=== PATIENT | female | born 1970 | race Caucasian/White ===

== ENCOUNTER → 2017-06-28 22:21 | Outpatient (CLI) | payer OTHER, SELFPAY ==
[2017-07-02 06:42] LABS: HPV Reflexed? NOT INDICATED
== END ==
PROVIDERS: Family Provider Family Medicine; PCP Family Medicine; Visit Provider Obstetrics & Gynecology
DX: Z12.4 Encounter for screening for malignant neoplasm of cervix (principal)
CPT/HCPCS: 88175; G0145

== ENCOUNTER → 2017-06-29 07:32 | Outpatient (CLI) | payer OTHER, SELFPAY ==
[2017-06-29 10:37] LABS: Estradiol 61.7 pg/mL; Free T3 2.7 pg/mL (2.18-3.98); Thyroid Stim Hormone (TSH) 1.12 uIU/mL (0.358-3.74)
--- NOTE | 2017-06-29 13:28 | HPBI_ITS ---
MAMMOGRAPHY - BILATERAL SCREENING REASON FOR EXAM: Female, 46 years old. Routine annual screening examination. PERTINENT HISTORY: Non-contributory. TECHNIQUE: Digital bilateral breast tanna (3D mammographic acquisition) in the CC and MLO projections. 2-D mediolateral oblique (MLO) and craniocaudad (CC) views of both breasts were obtained. CAD: Full Field Digital Mammography with Computer Added Detection was performed. COMPARISON: Comparison is made with prior study dated January 26, 2016 and January 20, 2015. FINDINGS: Breast Composition: The breasts are heterogeneously dense, which may obscure small masses. There are no dominant masses or suspicious calcifications. No other significant abnormalities are identified. There has been no significant change since the prior study. HPBI/SCREENING MAMM (CAD), BILAT IMPRESSION: Stable bilateral screening mammogram. Yearly follow-up mammogram recommended. (A) ASSESSMENT CATEGORY: BIRADS Category 1: Negative. A letter regarding these results will be sent to the patient by the facility within 30 days. Approximately 10% of breast cancers are not detected by mammography. A normal mammogram should not delay biopsy of a clinically suspicious abnormality. [id number] Electronically Signed: Adam Vasques MD at 15:56 EDT Tel [phone], Service support ,
[2017-06-30 09:47] LABS: Progesterone Level 1.97 ng/mL (See Comment)
== END ==
PROVIDERS: Family Provider Family Medicine; PCP Family Medicine; Visit Provider Obstetrics & Gynecology
DX: R53.83 Other fatigue (principal); Z12.31 Encounter for screening mammogram for malignant neoplasm of breast
CPT/HCPCS: 36415; 77063; 77067; 82533; 82627; 82670; 83036; 84144; 84403; 84439; 84443; 84481; 82626

== ENCOUNTER → 2017-10-31 08:51 | Outpatient (CLI) | payer OTHER, SELFPAY ==
[2017-10-31 12:03] LABS: Estradiol 102.8 pg/mL
[2017-11-01 09:08] LABS: Progesterone Level 48.46 ng/mL (See Comment)
== END ==
PROVIDERS: Visit Provider Obstetrics & Gynecology
DX: N92.6 Irregular menstruation, unspecified (principal); N94.3 Premenstrual tension syndrome; N92.0 Excessive and frequent menstruation with regular cycle
CPT/HCPCS: 36415; 82670; 84144

== ENCOUNTER 2018-04-13 12:15 | Outpatient (RCR) | payer OTHER, SELFPAY ==
--- NOTE | 2017-07-19 19:43 | MASS.EVAL ---
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 She was referred for massage therapy with a diagnosis of neck and thoracic sprain. She presents today with neck pain that she describes as an ache or tightness. She states that at times the pain radiates into her left arm. She also states that at times it is sharp and stabbing. Bernarda does not list an medications. She states that her health is very good with no limits in daily activities. She denies any disc bulge or fusion. Her goal of treatment is stress relief. OBJECTIVE: Upon examination and palpation I found this patient to have considerable muscle tension throughout her head, neck and shoulders. Her suboccipitals were tight with knots. Her scalenes were tight and ropey left side more than right side. Her levators and pectorals were very tight as well as the thoracic and lumbar paraspinals Her first treatment consisted of a one hour massage to her upper body only. MFR and muscle stripping were incorporated into the massage as well as PNMT to her cervical muscles and a heat pack to loosen muscles. ASSESMENT: Using various techniques I was able to achieve good releases overall. The patient tolerated deep tissue well and relaxed easily. She stated that she felt much better after her first treatment. PLAN: I plan to see this patient on an as-needed basis for a total of 10 visits in the year 2018. I will focus on the head, neck, shoulders and back to alleviate pain, decrease muscle tension and promote relaxation. Darcy Askew LMT
--- NOTE | 2017-07-19 19:53 | MASS.EVAL_ITS ---
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 She was referred for massage therapy with a diagnosis of neck and thoracic sprain. She presents today with neck pain that she describes as an ache or tightness. She states that at times the pain radiates into her left arm. She also states that at times it is sharp and stabbing. Bernarda does not list an medications. She states that her health is very good with no limits in daily activities. She denies any disc bulge or fusion. Her goal of treatment is stress relief. OBJECTIVE: Upon examination and palpation I found this patient to have considerable muscle tension throughout her head, neck and shoulders. Her suboccipitals were tight with knots. Her scalenes were tight and ropey left side more than right side. Her levators and pectorals were very tight as well as the thoracic and lumbar paraspinals Her first treatment consisted of a one hour massage to her upper body only. MFR and muscle stripping were incorporated into the massage as well as PNMT to her cervical muscles and a heat pack to loosen muscles. ASSESMENT: Using various techniques I was able to achieve good releases overall. The patient tolerated deep tissue well and relaxed easily. She stated that she felt much better after her first treatment. PLAN: I plan to see this patient on an as-needed basis for a total of 10 visits in the year 2018. I will focus on the head, neck, shoulders and back to alleviate pain, decrease muscle tension and promote relaxation. Darcy Askew LMT
--- NOTE | 2018-04-13 14:50 | DS.PCM_ITS ---
Massage Therapy Discharge Summary: Discharge Date: 04/13/2018 Bernarda was seen for a massotherapy evaluation on 07/12/2017 with the diagnosis of neck sprain and thoracic strain. She was treated with five sessions of massage therapy consisting of deep pressure soft tissue techniques, myofascial release and trigger point compression to her cervical, thoracic, and lumbar spine. Bernarda responded well to the therapy by reporting decreased tension and pain throughout her neck and back. Her goals for therapy were met throughout the treatment sessions. At this time this patient is being discharged from our care at [facility] facility. Darcy Askew LMT
== END 2018-04-13 19:00 | disposition home or self-care (01) ==
LOC: MASS 12:15
PROVIDERS: Family Provider Family Medicine; PCP Family Medicine; Visit Provider Family Medicine
DX: S13.9XXD Sprain of joints and ligaments of unspecified parts of neck, subsequent encounter (principal); S23.9XXD Sprain of unspecified parts of thorax, subsequent encounter
CPT/HCPCS: 97124

== ENCOUNTER 2018-07-25 15:59 | Outpatient (RCR) | payer OTHER, SELFPAY ==
[2018-07-10 13:30] VITALS: BMI 22.4
--- NOTE | 2018-07-25 17:40 | MASS.EVAL_ITS ---
Massage Therapy Evaluation: DATE OF INITIAL EVALUATION: 07-25-2018 Referring Physician: Dr. 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 She was seen for a massotherapy evaluation with a diagnosis of neck sprain. She presents today with neck pain. It commenced several days ago while lifting weights. On a pain scale of 1-10 she states her pain in a 4 today. She explains that her neck and shoulders hurt. She further explains that it feels tight and achy. She does not list any medications. She states that her health is very good with no limits in daily activities. Her goals of treatment are to relax and have tension relief. OBJECTIVE: Upon examination and palpation I found she had point tenderness throughout her suboccipitals. The muscles in her head, neck, and shoulders were very tight. Her scalp was rigid. Her levators bilaterally were very ropey. Her right UT had a know. Bilateral rhomboids were tight left greater than right. Her scalenes were tight and ropey left greater than right. Her cervical, thoracic and lumbar paraspinals were all tight. Her right supraspinatus has a knot laterally. Bernarda's first treatment consisted of MFR, muscle stripping, PNMT to her cervicals as well as a heat pack to loosen muscles. ASSESSMENT: Using various techniques I was able to achieve good releases overall. The patient tolerated deep pressure well and relaxed easily PLAN: I plan to see this patient on an as-needed basis for a total of 10 visits in the year 2018. Darcy Askew LMT
--- NOTE | 2019-03-27 11:16 | DS.PCM_ITS ---
Massage Therapy Discharge Summary: Initial Evaluation Date: 07/25/2018 Diagnosis: Neck Pain No. of Visits: Date of last visit: 07/25/2018 Goals: Insufficient visits to meet goals This patient is being discharged from our care at the [facility]. Thank you, Donya Churchill LMT
== END 2018-07-25 19:00 | disposition home or self-care (01) ==
LOC: MASS 15:59
PROVIDERS: Family Provider Family Medicine; PCP Family Medicine; Referring Provider Family Medicine; Visit Provider Family Medicine
DX: S13.9XXD Sprain of joints and ligaments of unspecified parts of neck, subsequent encounter (principal)
CPT/HCPCS: 97124

== ENCOUNTER → 2018-08-17 | Outpatient (CLI) | payer OTHER, SELFPAY ==
[2018-07-29 10:09] VITALS: BMI 22.4
[2018-08-22 12:25] LABS: HPV Reflexed? NOT INDICATED
== END | disposition home or self-care (01) ==
LOC: LABSPEC 16:03
PROVIDERS: Family Provider Family Medicine; PCP Family Medicine; Referring Provider Obstetrics & Gynecology; Visit Provider Obstetrics & Gynecology
DX: Z12.4 Encounter for screening for malignant neoplasm of cervix (principal)
CPT/HCPCS: 88175; G0145

== ENCOUNTER → 2018-08-20 | Outpatient (CLI) | payer OTHER, SELFPAY ==
[2018-07-29 10:09] VITALS: BMI 22.4
--- NOTE | 2018-08-20 13:23 | CT_ITS ---
STUDY: CT ABDOMEN AND PELVIS WITH CONTRAST REASON FOR EXAM: Female, 47 years old. Lower abdominal pain RADIATION DOSAGE (If Supplied By Facility): CTDIvol = ( 7.97 ) mGy, DLP = ( 279.86 ) mGycm TECHNIQUE: Transaxial images were obtained from the dome of the diaphragm to the symphysis pubis without oral contrast. 100 IV/Oral Isovue 300 was administered. Sagittal and coronal images were reconstructed. Individualized dose optimization techniques were used for this CT. COMPARISON: None. FINDINGS: The visualized lung bases are unremarkable. The visualized portions of the heart are within normal limits. Normal liver. Normal gallbladder and extrahepatic biliary system. Normal spleen. Normal pancreas. Normal bilateral adrenal glands. Normal right kidney. Normal left kidney. Normal visualized stomach. Normal small intestine. There are sigmoid diverticula. There is mild stranding in the fat around the sigmoid colon. The appendix is visualized and appears normal. Normal abdominal aorta. Normal inferior vena cava. Normal retroperitoneum. There is mild distention of the bladder. Normal abdominal wall. Normal osseous structures. There is a 1.8 x 1.3 cm left adnexa likely ovarian cyst. The uterus is anteverted. There are several hypodensities within the uterus. CT/Abdomen/Pelvis WITH Contrast IMPRESSION: Sigmoid diverticula, stranding around the sigmoid colon likely acute sigmoid colon diverticulitis 1.8 x 1.3 cm left adnexa likely ovarian cyst Mild distended bladder Likely uterine leiomyomas N.B. : The above information has been verbally conveyed by Christopher Lambert to Ashlyn Steele OT, on 08/20/2018 17:53:51 (ET). Electronically Signed: Christopher Lambert, at 17:57 EDT Tel , Service support ,
[2018-08-20 13:41] LABS: Absolute Lymphocyte Count 1.54 X10^3/ul (0.83-4.51); Absolute Neutrophil Count 8.2 X10^3/uL (2.0-7.7); Basophil# 0.02 X10^3/uL; Basophil% 0.2 % (0-1); Eosinophil# 0.06 X10^3/uL; Eosinophils% 0.6 % (0-5); Hematocrit 44.1 % (37-47); Lymphocyte # 1.54 X10^3/ul (4.0); Lymphocyte % 14.5 % (19-41); Mean Corpuscular Hgb 30.4 pg (27.0-32.0); Mean Corpuscular Volume 89.5 fL (81-99); Mean Platelet Vol. 9.6 fl (6.2-12.0); Monocyte# 0.81 X10^3/uL; Monocyte% 7.6 % (0-10); Neutrophil # 8.18 X10^3/uL (2.7-7.7); POSITIVE COUNT NO; POSITIVE DIFFERENTIAL NO; POSITIVE MORPHOLOGY NO; Platelet Count 249 K/mm3 (150-450); RBC Distribution Width CV 12.7 % (11.6-14.6); Red Blood Count 4.93 M/mm3 (4.2-5.4); White Blood Count 10.6 K/mm3 (4.4-11.0)
== END | disposition home or self-care (01) ==
PROVIDERS: Family Provider Family Medicine; PCP Family Medicine; Referring Provider Family Medicine; Visit Provider Family Medicine
DX: R10.30 Lower abdominal pain, unspecified (principal)
CPT/HCPCS: 36415; 74177; 85025; Q9967

== ENCOUNTER 2018-08-25 11:02 | Emergency (ER) | payer OTHER, SELFPAY ==
[2018-07-29 10:09] VITALS: BMI 22.4
[2018-08-25 11:03] VITALS: BP 122/89; PULSE 84; RESP 18; TEMP 36.4; O2SAT 99; BMI 21.5
--- NOTE | 2018-08-25 11:18 | ED.DCSUM_ITS ---
History of Present Illness Chief Complaint: Nausea/Vomiting/Diarrhea Detail of Chief Complaint: Nausea, vomiting and diarrhea Informant: Patient Onset: Days Context: Sudden Onset Timing: Intermittent Quality: Nausea without vomiting and diarrhea Current Severity: Mild Maximum Severity: Moderate Worsened by: Attempt to eat or drink anything Relieved by: Nothing Associated Symptoms: Predominantly nausea with some vomiting Narrative: Patient is a 47-year-old woman with no sniffing a past medical history who was diagnosed with acute diverticulitis on August 20. She was prescribed ciprofloxacin and metronidazole since she reports allergy to penicillin and sulfa. She states the pain has resolved. She no longer has discomfort with walking. Her main symptom presently is nausea. She has had some vomiting. She has not vomited today. She was able to take her medication. She reports thirst, dry mouth and feeling weak. - Past Medical History (1) Acute diverticulitis of intestine Status: Acute Past Medical History - Allergies and Home Meds Allergies/Adverse Reactions: Allergies Penicillins Allergy (Mild, Verified 08/25/18 11:06) rash Sulfa (Sulfonamide Antibiotics) Allergy (Mild, Verified 08/25/18 11:06) rash Primary Care Physician: Dave Cortez MD [Primary Care Provider] - Prior records reviewed: Yes Surgical History: no surgical history Lives: Spouse/ Significant Other, With Family Smoking Status: Never smoker Drugs: None Review of Systems General: Reports: Malaise, Weight loss - Since onset of illness. Denies: Chills, Fever, Sweats Eyes: Denies: Visual changes - bilaterally, Blurred Vision - bilaterally, Diplopia ENT: Denies: Bilateral ear pain, Rhinorrhea, Sore throat Cardiovascular: Denies: Chest pain, Palpitations Respiratory: Denies: Dyspnea, Cough, Dyspnea on exertion Gastrointestinal: Reports: Nausea, Vomiting - No hematemesis or coffee grounds noted in emesis, Diarrhea - Diarrhea earlier in the week.. Denies: Melena, Hematochezia Genitourinary: Denies: Dysuria, Hematuria, Frequency Musculoskeletal: Denies: Myalgias, Arthralgias, Back pain, Extremity Pain Skin: Denies: Rash, Wounds Neurological: Reports: Weakness Hematologic: Denies: Easy bruising, Easy bleeding Physical Exam Vital Signs/Narrative: Vital Signs Temp Pulse Resp BP Pulse Ox 08/25/18 11:03 97.6 F L 84 18 122/89 H 99 Inital Vital Signs reviewed: Yes General: Well nourished, Well developed, No Acute Distress Head: Normocephalic, Atraumatic Eyes: Perrl, EOMI ENT: Moist mucous membranes, No rhinorrhea Neck: Supple, Nontender Cardiovascular: Regular rate, Regular rhythm, No murmurs Respiratory: No distress, CTA bilaterally, Chest nontender Abdomen: Soft, Nontender, Nondistended, No masses, Hypoactive bowel sounds - There is tympanitic to percussion.. Negative for: Normal bowel sounds Rectal: Deferred Back: Nontender, Normal Inspection Extremities: Nontender, No edema Skin: Normal color, No rash. Negative for: Cyanosis, Jaundice Neurological: Alert, Oriented x3, Cranial nerves II-XII grossly intact, Normal Strength, Normal Sensation, Normal Gait Psychological: Tearful Diagnostic/Tx/Re-eval - Medical Decision Making With no sniffing a past medical history and not on any antihypertensive or diuretic blood work was not obtained based on studies in the literature. She did receive a liter of normal saline and IV Zofran. Clinically she is dehydra keiry. 30 to 60 minutes after receiving Zofran will order a p.o. challenge. If patient able to tolerate and feels improved will discharge to home with prescription for Zofran. Abdominal exam is negative with no tenderness, guarding or peritoneal findings. Therefore, CBC was not obtained. Patient was reassessed at sitting up. She is now smiling. She reports feeling better. She has no urge to urinate. Second liter of normal saline was ordered and p.o. challenge. Patient has passed p.o. challenge. Patient has urinated. Patient reports marked improvement. ED Disposition - Plan for ED Patient: Disposition: Home or Assisted Living Diagnosis: Nausea and vomiting, Moderate dehydration Instructions: ED Nausea Vomiting Prescriptions: Ondansetron [Zofran Odt] 4 mg PO Q8H PRN PRN #10 tablet PRN Reason: Nausea Referrals: Dave Cortez MD [Primary Care Provider] - 1-2 Days if not improving Additional Instructions: Your prescription was electronically transmitted to pharmacy of choice.
[2018-08-25] MEDS: Ondansetron 4 MG/2 ML Vial IV (11:25)
[2018-08-25] MEDS: 0.9% Normal Saline 1,000 ML 1000 ML IV ×2 (11:25→12:15)
[2018-08-25 13:48] VITALS: BP 105/60; PULSE 64; RESP 17
== END 2018-08-25 13:53 | disposition home or self-care (01) ==
PROVIDERS: Emergency Provider Emergency Medicine; Family Provider Family Medicine; PCP Family Medicine
DX: R11.2 Nausea with vomiting, unspecified (principal); E86.0 Dehydration; Z87.19 Personal history of other diseases of the digestive system
CPT/HCPCS: 96361; 96374; 99283; J7030; A4216; J2405

== ENCOUNTER → 2018-08-27 | Outpatient (CLI) | payer OTHER, SELFPAY ==
[2018-08-25 11:03] VITALS: BMI 21.5
[2018-08-27 08:00] LABS: Hemoglobin 15.4 g/dl (12.0-15.0); Mean Corpuscular Volume 85.8 fL (81-99); Mean Platelet Vol. 9.1 fl (6.2-12.0); Platelet Count 316 K/mm3 (150-450); RBC Distribution Width CV 12.4 % (11.6-14.6); RBC Distribution Width SD 38.4 fl (35.1-43.9); Red Blood Count 5.13 M/mm3 (4.2-5.4); Scan Indicated on CBC? Y/N NO; White Blood Count 4.4 K/mm3 (4.4-11.0)
[2018-08-27 08:34] LABS: Estradiol 105.8 pg/mL
[2018-08-27 09:15] LABS: Progesterone Level 14.37 ng/mL (See Comment)
[2018-08-28 09:44] LABS: Sex Hormone-binding Globulin 96.7 nmol/L (24.6-122.0)
== END | disposition home or self-care (01) ==
LOC: LAB 07:18
PROVIDERS: Family Provider Family Medicine; PCP Family Medicine; Referring Provider Obstetrics & Gynecology; Visit Provider Obstetrics & Gynecology
DX: N94.6 Dysmenorrhea, unspecified (principal)
CPT/HCPCS: 36415; 82670; 84144; 84270; 85027

== ENCOUNTER → 2018-09-08 | Outpatient (CLI) | payer OTHER, SELFPAY ==
[2018-08-29 09:33] VITALS: BMI 21.5
[2018-09-05 15:28] VITALS: BMI 21.5
--- NOTE | 2018-09-08 10:15 | US_ITS ---
STUDY: ULTRASOUND OF THE FEMALE PELVIS - COMPLETE REASON FOR EXAM: Female, 47 years old. Left ovarian cyst follow-up LMP: 09/03/2018 TECHNIQUE: Transabdominal and Transvaginal TECHNICAL QUALITY: Adequate. COMPARISON: CT from 08/20/2018 FINDINGS: The uterus is anteverted and is in a midline position. The uterus measures 9.4 x 4.8 x 5.4 cm cm. Normal uterine cervix. The endometrium measures 4.4 mm in thickness, and is hyperechoic. Small calcifications of the lower uterine subendometrial uterus noted measuring 5-6 mm. There is no demonstrated endometrial mass. There is no demonstrated myometrial mass. I.U.D. - The patient does not have an I.U.D. The right ovary is visualized. The right ovary measures 3.5 x 1.8 x 2.3 cm. There are multiple follicles of the right ovary without a dominant cyst. There is no visualized right adnexal mass or complex lesion. There is normal arterial and normal venous vascularity. The left ovary is visualized. The left ovary measures 3.2 x 2.7 x 1.5 cm. There are multiple follicles of the left ovary without a dominant cyst. There is no visualized left adnexal mass or complex lesion. There is normal arterial and normal venous vascularity. There is no fluid in the cul-de-sac. Visualized urinary bladder is unremarkable. US/Pelvic (Non ) IMPRESSION: 1. Involution of left ovarian cyst seen on prior ultrasound. Ovarian follicles without dominant solid or cystic mass. 2. Probable dystrophic/postinflammatory calcification in the lower uterine segment. Electronically Signed: Daniele Somers MD at 16:24 EDT , Service support ,
--- NOTE | 2018-09-08 10:15 | US_ITS ---
STUDY: ULTRASOUND OF THE FEMALE PELVIS - COMPLETE REASON FOR EXAM: Female, 47 years old. Left ovarian cyst follow-up LMP: 09/03/2018 TECHNIQUE: Transabdominal and Transvaginal TECHNICAL QUALITY: Adequate. COMPARISON: CT from 08/20/2018 FINDINGS: The uterus is anteverted and is in a midline position. The uterus measures 9.4 x 4.8 x 5.4 cm cm. Normal uterine cervix. The endometrium measures 4.4 mm in thickness, and is hyperechoic. Small calcifications of the lower uterine subendometrial uterus noted measuring 5-6 mm. There is no demonstrated endometrial mass. There is no demonstrated myometrial mass. I.U.D. - The patient does not have an I.U.D. The right ovary is visualized. The right ovary measures 3.5 x 1.8 x 2.3 cm. There are multiple follicles of the right ovary without a dominant cyst. There is no visualized right adnexal mass or complex lesion. There is normal arterial and normal venous vascularity. The left ovary is visualized. The left ovary measures 3.2 x 2.7 x 1.5 cm. There are multiple follicles of the left ovary without a dominant cyst. There is no visualized left adnexal mass or complex lesion. There is normal arterial and normal venous vascularity. There is no fluid in the cul-de-sac. Visualized urinary bladder is unremarkable. US/Transvaginal Non- IMPRESSION: 1. Involution of left ovarian cyst seen on prior ultrasound. Ovarian follicles without dominant solid or cystic mass. 2. Probable dystrophic/postinflammatory calcification in the lower uterine segment. Electronically Signed: Daniele Soemrs MD at 16:24 EDT , Service support ,
== END | disposition home or self-care (01) ==
LOC: US 10:04
PROVIDERS: Family Provider Family Medicine; PCP Family Medicine; Referring Provider Obstetrics & Gynecology; Visit Provider Obstetrics & Gynecology
DX: N83.202 Unspecified ovarian cyst, left side (principal)
CPT/HCPCS: 76830; 76856; 93976

== ENCOUNTER 2018-10-12 08:41 | Day surgery (SDC) | payer OTHER, SELFPAY ==
--- NOTE | 2018-09-05 04:41 | HP_ITS ---
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 Is patient in pain?: No Allergies Penicillins Allergy (Mild, Verified 09/05/18 15:27) rash Sulfa (Sulfonamide Antibiotics) Allergy (Mild, Verified 09/05/18 15:27) rash Medications progesterone micronized 100 mg capsule 100 mg PO QAM 07/10/18 [History Confirmed 09/05/18] PFSH Medical History Acute diverticulitis of intestine (Acute) Segmental and somatic dysfunction of pelvic region (Acute) Segmental and somatic dysfunction of thoracic region (Acute) Segmental and somatic dysfunction of lumbar region (Acute) Surgical History History of dilatation and curettage (Acute) History of tonsillectomy and adenoidectomy (Acute) Social History Smoking Status: Never smoker alcohol intake: never substance use type: does not use what type of physical activity do you participate in: weight training frequency: 3-4 times per week HPI HPI HPI: VIRI HENDRICKS, is a 47 F who presents to the office today for HPI HPI Surgical H&P: Yes HPI: VIRI HENDRICKS, is a 47 F who presents to the office today for surgical consultation and treatment of what was felt to be a bout of acute sigmoid diverticulitis. Very pleasant 47-year-old female. 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 Early August she developed significant left lower quadrant abdominal pain. Dr. Cortez obtained a abdominal pelvic CT scan with contrast at the [facility] on August 20, 2018. The findings suggested possibly a 1.8 cm left ovarian cyst. Anteverted uterus. Several hypodensities within the uterus. Sigmoid diverticula with stranding around the sigmoid colon suspicious for acute sigmoid diverticulitis. Possible uterine leiomyomas. Mildly distended urinary bladder. She was treated with ciprofloxacin and metronidazole. However she is sensitive and intolerant to medications. She has a penicillin and sulfa allergy. She became dehydrated and needed to return to the emergency room on August 25, 2018 for nausea vomiting diarrhea dehydration. She was treated with 2 L of fluid with improvement. It is curious that on clinical examination she states that her abdomen was not particularly tender to even deep palpation by physician staff. 1 month leading up to this process she was having looser stools than normal. Her stool still have not quite returned to normal being softer more loose. They do not have a particular odor she has not noticed any bright red blood. There is no family history of colon cancer. She otherwise enjoys an extremely healthy lifestyle performs [employer] and is very fit. She does not recall any particular food that could have been a trigger to this process. She is seen Dr. Idania Arroyo for evaluation of gynecologic findings and she has a pelvic ultrasound scheduled in 3 days. ROS General General: No weight change, appetite, fatigue, colon cancer, breast cancer or weakness HEENT HEENT: No difficulty swallowing, eye injury, eye surgery, swollen glands or hoarseness Endo Endocrine: No thyroid disease, diabetes mellitus, thyroid cancer, Hair loss, heat intolerance or cold intolerance Skin Skin: No rash or changing moles Breast Breast: No left breast lump, right breast lump, nipple discharge, breast pain, abnormal mammogram, abnormal US or breast enlargement Musc Musculoskeletal: No back problems, arthritis, rheumatoid arthritis, gout or joint pain Cardio Cardiovascular: No murmur, pacemaker, heart disease, atrial fibrillation, high blood pressure, heart attack, heart stent, palpitations, shortness of breat with exertion or chest pain Psych Psychiatric: No depression, anxiety or hearing voices Resp Respiratory: No shortness of breath, No sleep apnea, No cough, No COPD, No asthma, No emphysema, No wheezing Gastro Gastrointestinal: No abdominal pain, No nausea or vomiting, No diarrhea, No constipation, No blood in stool, No acid reflux, No hemorrhoids, No ulcers, No gallbladder problem, No black,tarry stools Boom Hematologic: No blood thinners, No blood disorders, No bleeding, No anemia, No blood clots Neuro Neurologic: No system reviewed and no additional complaints, except as docu, No as per HPI, No abnormal walking, No abnormal hearing, No abnormal movements, No abnormal speech, No behavioral changes, No burning sensations, No confusion, No seizure-like activity, No unsteadiness, No dizziness, No localized weakness, No frequent falls, No headache(s), No lack of coordination, No loss of vision, No memory loss, No numbness, No other visual disturbances, No radiating pain, No restless legs, No sensory deficit, No fainting, No tingling, No tremor(s), No weakness, No other Exam Const General: cooperative, healthy appearing, comfortable, no acute distress Nutritional Appearance: underweight Orientation: alert, awake, oriented x3 HENMT Head: normal to inspection Eyes General: appearance normal, both eyes and all related structures Chest Breast Palpation: No nipple discharge Resp Effort & Inspection: normal respiratory effort Auscultation: clear to auscultation bilaterally Cardio Rate: regular rate Rhythm: regular rhythm Heart Sounds: no murmurs GI Palpation: soft, no hepatosplenomegaly Auscultation: normal bowel sounds Neuro Cognition: normal cognition Extrem General: no calf tenderness bilaterally Psych Affect: normal affect Assessment & Plan Problems 1. Acute diverticulitis of intestine K57.92 Plan 47-year-old female with findings consistent with episode of acute sigmoid diverticulitis. She has not had a previous colonoscopy. Her bowel habits have not completely returned to normal. She does do CrossFit potential for extreme Valsalva perhaps complicating issues. She does not recall a trigger food. I do propose for her colonoscopy with possible biopsy or polypectomy as indicated. We have discussed technique benefit risk comp occasions alternatives. The patient does have an upcoming vacation. We will schedule subsequent to her return. I anticipate performing this with monitored anesthesia care. She has had an opportunity to ask and have questions answered. Further office follow-up can be then as appropriate. At this time I am not anticipating that she will require surgical intervention. I very much appreciate the kind opportunity of assisting with her surgical care. CC: Dr. Dave Steinberg M.D., F.A.C.S. Plan Detail Goals Decrease pain Improve ROM Coding Level of Care Code Off vis,new,level 2 Diagnoses Acute diverticulitis of intestine K57.92 09/05/18 1641 <Electronically signed by Christopher barraza MD> Date _ Christopher Steinberg MD I have re-examined the patient. There are no clinical changes since date of exam.
[2018-09-05 15:28] VITALS: BMI 21.5
[2018-10-12 08:55] VITALS: BP 119/66; PULSE 66; RESP 14; TEMP 37.2; O2SAT 100; BMI 20.6
[2018-10-12 10:26] VITALS: BP 119/66; BP 96/57; PULSE 70; RESP 14; TEMP 36.7; O2SAT 95
[2018-10-12 10:30] VITALS: BP 102/58; BP 119/66; PULSE 67; RESP 14; O2SAT 99
[2018-10-12 10:35] VITALS: BP 102/69; BP 119/66; PULSE 63; RESP 16; O2SAT 98
[2018-10-12 10:41] VITALS: BP 114/71; BP 119/66; PULSE 63; RESP 16; TEMP 36.7; O2SAT 99
[2018-10-12 11:15] VITALS: BP 119/66
--- NOTE | 2018-10-15 06:30 | HP.PCM_ITS ---
Problem List (1) Acute diverticulitis of intestine Status: Acute History and Physical Date of Admission: 10/12/18 Intake Vital Signs 09/05/18 Body Mass Index (BMI) 21.5 09/05/18 Height 5 ft 2 in 09/05/18 Weight: 113 lb 09/05/18 Body Mass Index (BMI) 20.6 09/05/18 Blood Pressure 126/75 H 09/05/18 Blood Pressure Location Lt brachial 09/05/18 Blood Pressure Position Sitting 09/05/18 Respiratory Rate 16 09/05/18 Pulse Rate 61 Intake Visit Reasons: Diverticulitis/C-Scope Consult [facility] 08/20 Chief Complaint: ear infection Shingles Roofer Required: No Is patient in pain?: No Allergies Penicillins Allergy (Mild, Verified 09/05/18 15:27) rash Sulfa (Sulfonamide Antibiotics) Allergy (Mild, Verified 09/05/18 15:27) rash Medications progesterone micronized 100 mg capsule 100 mg PO QAM 07/10/18 [History Confirmed 09/05/18] PFSH Medical History Acute diverticulitis of intestine (Acute) Segmental and somatic dysfunction of pelvic region (Acute) Segmental and somatic dysfunction of thoracic region (Acute) Segmental and somatic dysfunction of lumbar region (Acute) Surgical History History of dilatation and curettage (Acute) History of tonsillectomy and adenoidectomy (Acute) Social History Smoking Status: Never smoker alcohol intake: never substance use type: does not use what type of physical activity do you participate in: weight training frequency: 3-4 times per week HPI HPI HPI: VIRI HENDRICKS, is a 47 F who presents to the office today for HPI HPI Surgical H&P: Yes HPI: VIRI HENDRICKS, is a 47 F who presents to the office today for surgical consultation and treatment of what was felt to be a bout of acute sigmoid diverticulitis. Very pleasant 47-year-old female. 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 Early August she developed significant left lower quadrant abdominal pain. Dr. Cortez obtained a abdominal pelvic CT scan with contrast at the [employer] on August 20, 2018. The findings suggested possibly a 1.8 cm left ovarian cyst. Anteverte d uterus. Several hypodensities within the uterus. Sigmoid diverticula with stranding around the sigmoid colon suspicious for acute sigmoid diverticulitis. Possible uterine leiomyomas. Mildly distended urinary bladder. She was treated with ciprofloxacin and metronidazole. However she is sensitive and intolerant to medications. She has a penicillin and sulfa allergy. She became dehydrated and needed to return to the emergency room on August 25, 2018 for nausea vomiting diarrhea dehydration. She was treated with 2 L of fluid with improvement. It is curious that on clinical examination she states that her abdomen was not particularly tender to even deep palpation by physician staff. 1 month leading up to this process she was having looser stools than normal. Her stool still have not quite returned to normal being softer more loose. They do not have a particular odor she has not noticed any bright red blood. There is no family history of colon cancer. She otherwise enjoys an extremely healthy lifestyle performs Circle and is very fit. She does not recall any particular food that could have been a trigger to this process. She is seen Dr. Idania Arroyo for evaluation of gynecologic findings and she has a pelvic ultrasound scheduled in 3 days. ROS General General: No weight change, appetite, fatigue, colon cancer, breast cancer or weakness HEENT HEENT: No difficulty swallowing, eye injury, eye surgery, swollen glands or hoarseness Endo Endocrine: No thyroid disease, diabetes mellitus, thyroid cancer, Hair loss, heat intolerance or cold intolerance Skin Skin: No rash or changing moles Breast Breast: No left breast lump, right breast lump, nipple discharge, breast pain, abnormal mammogram, abnormal US or breast enlargement Musc Musculoskeletal: No back problems, arthritis, rheumatoid arthritis, gout or joint pain Cardio Cardiovascular: No murmur, pacemaker, heart disease, atrial fibrillation, high blood pressure, heart attack, heart stent, palpitations, shortness of breat with exertion or chest pain Psych Psychiatric: No depression, anxiety or hearing voices Resp Respiratory: No shortness of breath, No sleep apnea, No cough, No COPD, No asthma, No emphysema, No wheezing Gastro Gastrointestinal: No abdominal pain, No nausea or vomiting, No diarrhea, No constipation, No blood in stool, No acid reflux, No hemorrhoids, No ulcers, No gallbladder problem, No black,tarry stools Boom Hematologic: No blood thinners, No blood disorders, No bleeding, No anemia, No blood clots Neuro Neurologic: No system reviewed and no additional complaints, except as docu, No as per HPI, No abnormal walking, No abnormal hearing, No abnormal movements, No abnormal speech, No behavioral changes, No burning sensations, No confusion, No seizure-like activity, No unsteadiness, No dizziness, No localized weakness, No frequent falls, No headache(s), No lack of coordination, No loss of vision, No memory loss, No numbness, No other visual disturbances, No radiating pain, No restless legs, No sensory deficit, No fainting, No tingling, No tremor(s), No weakness, No other Exam Const General: cooperative, healthy appearing, comfortable, no acute distress Nutritional Appearance: underweight Orientation: alert, awake, oriented x3 HENMT Head: normal to inspection Eyes General: appearance normal, both eyes and all related structures Chest Breast Palpation: No nipple discharge Resp Effort & Inspection: normal respiratory effort Auscultation: clear to auscultation bilaterally Cardio Rate: regular rate Rhythm: regular rhythm Heart Sounds: no murmurs GI Palpation: soft, no hepatosplenomegaly Auscultation: normal bowel sounds Neuro Cognition: normal cognition Extrem General: no calf tenderness bilaterally Psych Affect: normal affect Assessment & Plan Problems 1. Acute diverticulitis of intestine K57.92 Plan 47-year-old female with findings consistent with episode of acute sigmoid diverticulitis. She has not had a previous colonoscopy. Her bowel habits have not completely returned to normal. She does do [employer] potential for extreme Valsalva perhaps complicating issues. She does not recall a trigger food. I do propose for her colonoscopy with possible biopsy or polypectomy as indicated. We have discussed technique benefit risk comp occasions alternatives. The patient does have an upcoming vacation. We will schedule subsequent to her return. I anticipate performing this with monitored anesthesia care. She has had an opportunity to ask and have questions answered. Further office follow-up can be then as appropriate. At this time I am not anticipating that she will require surgical intervention. I very much appreciate the kind opportunity of assisting with her surgical care. CC: Dr. Dave Steinberg M.D., F.A.C.S. Plan Detail Goals Decrease pain Improve ROM Coding Level of Care Code Off vis,new,level 2 Diagnoses Acute diverticulitis of intestine K57.92 09/05/18 [id number] <Electronically signed by Christopher barraza MD> Date _ Christopher Sheridan Signature: Date (if applicable) CC: Dave Cortez MD ~ Patient re evaluated and no changes Previous H&P was Cancelled--I do not know why. This is a delayed entree though on the 10/12/18 an attempt was made preop to upgrade the H&P and I did not notice till today that there was an electronic problem with that process. Christopher Steinberg. 10/15/18 6:33am.
--- NOTE | 2018-10-17 10:43 | OP.ENDO_ITS ---
10/17/2018 Dave Cortez Re : Colonoscopy procedure for Bernarda Louise Dear Dana This procedure was performed on Friday, October 12, 2018. My impressions and recommendations are as follows: Impressions : - Diverticulosis in the sigmoid colon and in the descending colon. - The examination was otherwise normal. - No specimens collected. Recommendations : - Discharge patient to home. - Resume previous diet. - Continue present medications. - Repeat colonoscopy in 10 years for screening purposes. My findings are described in the full procedure note, which is enclosed. If I can be of further assistance, please feel free to contact me at Doctor phone number(s): Work: . Sincerely, Christopher Steinberg MD 10/12/2018 10:28:32 AM This report has been signed electronically.
== END 2018-10-12 11:16 | disposition home or self-care (01) ==
LOC: EN 08:42 → AC 08:42
PROVIDERS: Family Provider Family Medicine; PCP Family Medicine; Referring Provider Family Medicine; Visit Provider Surgery
PROC: 0DJD8ZZ Inspection of Lower Intestinal Tract, Via Natural or Artificial Opening Endoscopic (ICD-10-PCS; CPT 45378; principal; 2018-10-12 09:40)
DX: K57.32 Diverticulitis of large intestine without perforation or abscess without bleeding (principal); K57.30 Diverticulosis of large intestine without perforation or abscess without bleeding
CPT/HCPCS: 45378; J7120

== ENCOUNTER → 2018-11-16 | Outpatient (CLI) | payer OTHER, SELFPAY ==
[2018-07-29 10:09] VITALS: BMI 22.4
--- NOTE | 2018-11-16 10:08 | BI_ITS ---
MAMMOGRAPHY - BILATERAL SCREENING REASON FOR EXAM: Female, 47 years old. Routine annual screening examination. PERTINENT HISTORY: Non-contributory. TECHNIQUE: Digital bilateral breast rossana (3D mammographic acquisition) in the CC and MLO projections. 2-D mediolateral oblique (MLO) and craniocaudad (CC) views of both breasts were obtained. CAD: Full Field Digital Mammography with Computer Added Detection was performed. COMPARISON: Comparison is made with prior examination dated June 29, 2017 and January 26, 2000 FINDINGS: Breast Composition: The breasts are extremely dense, which lowers the sensitivity of mammography. There are no dominant masses or suspicious calcifications. No other significant abnormalities are identified. There has been no significant change since the prior study. BI/SCREEN MAMM (CAD) W/ROSSANA BILAT IMPRESSION: Stable bilateral screening mammogram. Yearly follow-up mammogram recommended. (A) ASSESSMENT CATEGORY: BIRADS Category 1: Negative. A letter regarding these results will be sent to the patient by the facility within 30 days. Approximately 10% of breast cancers are not detected by mammography. A normal mammogram should not delay biopsy of a clinically suspicious abnormality. [id number] Electronically Signed: Adam Vasques, at 11:08 EDT , Service support ,
== END | disposition home or self-care (01) ==
LOC: OPBI 10:07
PROVIDERS: Family Provider Family Medicine; PCP Family Medicine; Referring Provider Obstetrics & Gynecology; Visit Provider Obstetrics & Gynecology
DX: Z12.31 Encounter for screening mammogram for malignant neoplasm of breast (principal)
CPT/HCPCS: 77063; 77067

== ENCOUNTER → 2018-12-21 13:46 | Outpatient (CLI) | payer OTHER, SELFPAY ==
[2018-12-13 07:26] VITALS: BMI 20.6
--- NOTE | 2018-12-21 13:49 | US_ITS ---
STUDY: ULTRASOUND OF THE FEMALE PELVIS - COMPLETE REASON FOR EXAM: Female, 47 years old. Bleeding TECHNIQUE: Transabdominal and transvaginal ultrasound images were obtained of the pelvis TECHNICAL QUALITY: Adequate. COMPARISON: Pelvic ultrasound September 08, 2018 FINDINGS: The uterus measures 9.8 x 5.6 x 4.8 cm. Normal uterine cervix. The endometrium measures 4 mm in thickness. There is a submucosal 0.9 x 1 x 0.7 cm fibroid. Several dystrophic uterine calcifications are present, some in close association to the endometrium. The right ovary measures 2.5 x 2.3 x 2.3 cm. There is no right ovarian cyst or ovarian mass. There is a 1.2 x 1.2 x 1.1 cm cyst.. There is normal arterial and normal venous vascularity. The left ovary measures 2.9 x 2.6 x 1.7 cm. There is no left ovarian cyst or ovarian mass. There is a 1.4 x 1.7 x 0.6 cm cyst.. There is normal arterial and normal venous vascularity. There is no fluid in the cul-de-sac. US/Pelvic (Non ) IMPRESSION: No acute pelvic pathology identified. Small submucosal fibroid. Several dystrophic uterine calcifications among some in close association to the endometrium. Bilateral ovarian follicles. Electronically Signed: Guillermo Rivera, at 16:22 EDT Tel , Service support ,
--- NOTE | 2018-12-21 13:49 | US_ITS ---
STUDY: ULTRASOUND OF THE FEMALE PELVIS - COMPLETE REASON FOR EXAM: Female, 47 years old. Bleeding TECHNIQUE: Transabdominal and transvaginal ultrasound images were obtained of the pelvis TECHNICAL QUALITY: Adequate. COMPARISON: Pelvic ultrasound September 08, 2018 FINDINGS: The uterus measures 9.8 x 5.6 x 4.8 cm. Normal uterine cervix. The endometrium measures 4 mm in thickness. There is a submucosal 0.9 x 1 x 0.7 cm fibroid. Several dystrophic uterine calcifications are present, some in close association to the endometrium. The right ovary measures 2.5 x 2.3 x 2.3 cm. There is no right ovarian cyst or ovarian mass. There is a 1.2 x 1.2 x 1.1 cm cyst.. There is normal arterial and normal venous vascularity. The left ovary measures 2.9 x 2.6 x 1.7 cm. There is no left ovarian cyst or ovarian mass. There is a 1.4 x 1.7 x 0.6 cm cyst.. There is normal arterial and normal venous vascularity. There is no fluid in the cul-de-sac. US/Transvaginal Non- IMPRESSION: No acute pelvic pathology identified. Small submucosal fibroid. Several dystrophic uterine calcifications among some in close association to the endometrium. Bilateral ovarian follicles. Electronically Signed: Guillermo Rivera, at 16:22 EDT Tel , Service support ,
== END ==
PROVIDERS: Family Provider Family Medicine; PCP Family Medicine; Referring Provider Obstetrics & Gynecology; Visit Provider Obstetrics & Gynecology
DX: N92.6 Irregular menstruation, unspecified (principal)
CPT/HCPCS: 76830; 76856

== ENCOUNTER → 2019-12-03 12:47 | Outpatient (CLI) | payer OTHER, SELFPAY ==
[2019-09-23 15:28] VITALS: BMI 20.6
--- NOTE | 2019-12-03 12:49 | BI_ITS ---
MAMMOGRAPHY - BILATERAL SCREENING 3-D TOMOSYNTHESIS REASON FOR EXAM: Female, 48 years old. Annual screening examination. PERTINENT HISTORY: No significant family history. TECHNIQUE: 2-D mammograms and 3-D Tomosynthesis of the breast (s) were performed. CAD was performed. COMPARISON: 11/16/2018, 06/29/2017 FINDINGS: The breast composition is heterogeneously dense that can obscure small breast masses. Scattered benign calcifications are seen. No dense spiculated masses or suspicious microcalcifications are identified. No architectural distortion is identified. There is no skin thickening or retraction. There has been no significant change since the prior study. BI/SCREEN MAMM (CAD) W/ROSSANA BILAT IMPRESSION: No mammographic signs of malignancy. Routine yearly mammograms recommended. ASSESSMENT CATEGORY: BIRADS Category 1: Negative. A letter regarding these results will be sent to the patient by the facility within 30 days. FOLLOW UP RECOMMENDATION: Yearly follow up mammogram recommended. (A) Approximately 10% of breast cancers are not detected by mammography. A normal mammogram should not delay biopsy of a clinically suspicious abnormality. Electronically Signed: Andrew Cordova MD at 17:29 EDT , Service support ,
== END ==
PROVIDERS: PCP Family Medicine; Referring Provider Obstetrics & Gynecology; Visit Provider Obstetrics & Gynecology
DX: Z12.31 Encounter for screening mammogram for malignant neoplasm of breast (principal)
CPT/HCPCS: 77063; 77067

== ENCOUNTER → 2020-06-24 14:30 | Outpatient (CLI) | payer OTHER, SELFPAY ==
--- NOTE | 2020-06-24 14:33 | RAD_ITS ---
STUDY: X-RAY - PELVIS AND RIGHT HIP REASON FOR EXAM: Female, 49 years old. SPRAIN OF LIGAMENT TECHNIQUE: 3 views of the pelvis and hip. COMPARISON: None. FINDINGS: There is a non-specific bowel gas pattern. Normal visualized soft tissue structures. There is narrowing with cortical sclerosis and osteophyte formation of the sacroiliac joint consistent with mild degenerative osteoarthritic changes. Normal bilateral superior and inferior pubic rami. Normal pubic symphysis. Normal bilateral ischial tuberosities. Normal visualized femoral head. Normal acetabulum. Normal hip joint. RAD/HIP, UNI W/ Pelvis 2-3 Views IMPRESSION: No acute bone injury of the pelvis and hip. Electronically Signed: Riki Fontenot MD at 15:42 EST Tel , Service support ,
--- NOTE | 2020-06-24 14:33 | RAD_ITS ---
STUDY: X-RAY - LUMBAR SPINE REASON FOR EXAM: Female, 49 years old. SPRAIN OF LIGAMENT TECHNIQUE: 5 view(s) of the lumbar spine were obtained. COMPARISON: None FINDINGS: Normal lumbar lordosis. There is no substantial scoliosis. There is a normal alignment of the vertebrae. Normal vertebral bodies and endplates. Normal disc space heights. The soft tissue structures are unremarkable. RAD/L/S Spine Min 4 Views IMPRESSION: Normal x-ray examination of the lumbar spine. Electronically Signed: Riki Fontenot MD at 15:31 EST Tel , Service support ,
== END ==
PROVIDERS: PCP Family Medicine; Referring Provider Family Medicine; Visit Provider Family Medicine
DX: S33.9XXA Sprain of unspecified parts of lumbar spine and pelvis, initial encounter (principal)
CPT/HCPCS: 72110; 73502

== ENCOUNTER → 2020-06-26 09:49 | Outpatient (CLI) | payer OTHER, SELFPAY ==
--- NOTE | 2020-06-26 09:53 | MRI_ITS ---
STUDY: MRI LUMBAR SPINE WITHOUT CONTRAST REASON FOR EXAM: Female, 49 years old. LUMBAR STRAIN TECHNIQUE: Standardized fat and water weighted pulse sequences were obtained in the sagittal and axial planes. COMPARISON: CT abdomen and pelvis with contrast 08/20/2018. FINDINGS: T11-T12: (Sagittal only). Normal endplates. Normal disc height, hydration and morphology. Normal central canal and bilateral intervertebral neural foramina. T12-L1: (Sagittal only). Normal endplates. Normal disc height, hydration and morphology. Normal central canal and bilateral intervertebral neural foramina. Normal lumbar lordosis. There is no substantial scoliosis. Normal conus medullaris that terminates at the lower L1 vertebral body level. L1-2: Normal endplates. Normal disc height, hydration and morphology. Normal bilateral facet joints. Normal central canal and bilateral lateral recesses. Normal bilateral intervertebral neural foramina. L2-3: Normal endplates. Normal disc height, hydration and morphology. Normal bilateral facet joints. Normal central canal and bilateral lateral recesses. Normal bilateral intervertebral neural foramina. L3-4: Normal endplates. Normal disc height, hydration and morphology. Normal bilateral facet joints. Normal central canal and bilateral lateral recesses. Normal bilateral intervertebral neural foramina. L4-5: Normal endplates. Normal disc height, hydration and morphology. Normal bilateral facet joints. Normal central canal and bilateral lateral recesses. Normal bilateral intervertebral neural foramina. L5-S1: Normal endplates. Normal disc height, hydration and morphology. Normal bilateral facet joints. Normal central canal and bilateral lateral recesses. Normal bilateral intervertebral neural foramina. Normal visualized sacral ala. Normal visualized paraspinous soft tissue structures. MRI/Spine Lumbar (Routine) IMPRESSION: 1. Normal unenhanced MR examination of the lumbar spine. 2. No interval change when compared to CT abdomen and pelvis of 08/20/2018. Electronically Signed: Jose Mariscal MD at 11:22 EST , Service support ,
== END ==
PROVIDERS: PCP Family Medicine; Visit Provider Family Medicine
DX: R93.7 Abnormal findings on diagnostic imaging of other parts of musculoskeletal system (principal); M54.5 Low back pain
CPT/HCPCS: 72148

== ENCOUNTER → 2020-11-05 | Outpatient (CLI) | payer OTHER, SELFPAY ==
[2020-11-05 13:10] VITALS: BMI 20.6
[2020-11-11 09:49] LABS: HPV APTIMA, High Risk Negative (Negative)
== END | disposition home or self-care (01) ==
PROVIDERS: PCP Family Medicine; Referring Provider Obstetrics & Gynecology; Visit Provider Obstetrics & Gynecology
DX: Z12.4 Encounter for screening for malignant neoplasm of cervix (principal)
CPT/HCPCS: 87624; 88175; G0145

== ENCOUNTER → 2020-12-16 14:19 | Outpatient (CLI) | payer OTHER, SELFPAY ==
[2020-11-05 13:10] VITALS: BMI 20.6
--- NOTE | 2020-12-16 14:22 | BI_ITS ---
MAMMOGRAPHY - BILATERAL SCREENING 3-D TOMOSYNTHESIS REASON FOR EXAM: Female, 49 years old. screening PERTINENT HISTORY: No significant family history. TECHNIQUE: 2-D mammograms and 3-D Tomosynthesis of the breast (s) were performed. CAD was performed. COMPARISON: 12/03/2019 FINDINGS: The breast composition is Extermely dense tissue. Scattered benign calcifications are seen. No dense spiculated masses or suspicious microcalcifications are identified. No architectural distortion is identified. There is no skin thickening or retraction. There has been no significant change since the prior study. BI/SCRN MAMM (CAD)W/ROSSANA BILAT IMPRESSION: No mammographic signs of malignancy. Routine yearly mammograms recommended. ASSESSMENT CATEGORY: BIRADS Category 1: Negative. A letter regarding these results will be sent to the patient by the facility within 30 days. FOLLOW UP RECOMMENDATION: Yearly follow up mammogram recommended. (A) Approximately 10% of breast cancers are not detected by mammography. A normal mammogram should not delay biopsy of a clinically suspicious abnormality. Electronically Signed: Mich Gerber MD at 15:10 EDT Tel , Service support ,
== END ==
PROVIDERS: PCP Family Medicine; Referring Provider Obstetrics & Gynecology; Visit Provider Obstetrics & Gynecology
DX: Z12.31 Encounter for screening mammogram for malignant neoplasm of breast (principal)
CPT/HCPCS: 77063; 77067

== ENCOUNTER → 2020-12-29 | Outpatient (CLI) | payer OTHER, SELFPAY | END | disposition home or self-care (01) | LOC: LABSPEC 10:17 | PROVIDERS: PCP Family Medicine; Referring Provider Obstetrics & Gynecology; Visit Provider Obstetrics & Gynecology | DX: N76.0 Acute vaginitis (principal) | CPT/HCPCS: 87070; 87205 ==

== ENCOUNTER → 2022-07-08 | Outpatient (CLI) | payer OTHER, SELFPAY ==
--- NOTE | 2022-07-08 12:50 | CT_ITS ---
STUDY: CT MAXILLOFACIAL SINUSES REASON FOR EXAM: Female, 51 years old. ACUTE SUPPURATIVE OTITIS MEDIA OF RIGHT EAR WITHOUT SPONTANEOUS -- RUPTURE OF TYMPANIC MEMBRANE RADIATION DOSAGE (If Supplied By Facility): CTDIvol = ( 33.06 ) mGy, DLP = ( 920.62 ) mGycm TECHNIQUE: The patient was scanned in a multi detector CT scanner. High resolution axial imaging was performed without the administration of intravenous contrast material. Sagittal and coronal images were reconstructed. Individualized dose optimization techniques were used for this CT. COMPARISON: None. FINDINGS: FRONTAL SINUSES: Normal aeration, without mucosal inflammatory disease. ETHMOIDAL SINUSES: Partial opacification of the ethmoid sinuses bilaterally. MAXILLARY SINUSES: Minimal mucosal thickening of the maxillary sinuses bilaterally. SPHENOIDAL SINUSES: Normal aeration, without mucosal inflammatory disease. There is patency of the bilateral maxillary infundibuli with normal uncinate processes, ethmoid bullae, and hiatus semilunaris. Normal bilateral middle turbinates. Normal bilateral inferior turbinates. There is a right sided nasal septal deviation, but without a nasal septal spur. There is patency of the bilateral nasal airways. The visualized osseous structures are normal. The visualized bilateral orbital contents are normal. CT/Sinus/Facial Bone IMPRESSION: Mucosal thickening of the maxillary sinuses. Partial opacification of the ethmoid sinuses bilaterally. Electronically Signed: Adam Vasques MD at 13:43 EDT ,
== END | disposition home or self-care (01) ==
LOC: CT 12:46
PROVIDERS: PCP Family Medicine; Visit Provider Family Medicine
DX: H66.001 Acute suppurative otitis media without spontaneous rupture of ear drum, right ear (principal)
CPT/HCPCS: 70486

== ENCOUNTER → 2022-12-28 | Outpatient (CLI) | payer OTHER, SELFPAY ==
--- NOTE | 2022-12-28 12:57 | BI_ITS ---
MAMMOGRAPHY - BILATERAL SCREENING REASON FOR EXAM: Female, 52 years old. Routine annual screening examination. PERTINENT HISTORY: Non-contributory. TECHNIQUE: Digital bilateral breast rossana (3D mammographic acquisition) in the CC and MLO projections. 2-D mediolateral oblique (MLO) and craniocaudad (CC) views of both breasts were obtained. CAD: Full Field Digital Mammography with Computer Added Detection was performed. COMPARISON: Comparison is made with prior study December 16, 2020 and December 03, 2019. FINDINGS: Breast Composition: The breasts are extremely dense, which lowers the sensitivity of mammography. There are no dominant masses or suspicious calcifications. No other significant abnormalities are identified. There has been no significant change since the prior study. BI/SCRN MAMM (CAD)W/ROSSANA BILAT IMPRESSION: Stable bilateral screening mammogram. Yearly follow-up mammogram recommended. (A) ASSESSMENT CATEGORY: BIRADS Category 1: Negative. A letter regarding these results will be sent to the patient by the facility within 30 days. Approximately 10% of breast cancers are not detected by mammography. A normal mammogram should not delay biopsy of a clinically suspicious abnormality. [id number] Electronically Signed: Adam Vasques MD at 14:07 EDT ,
== END | disposition home or self-care (01) ==
PROVIDERS: PCP Family Medicine; Referring Provider Obstetrics & Gynecology; Visit Provider Obstetrics & Gynecology
DX: Z12.31 Encounter for screening mammogram for malignant neoplasm of breast (principal)
CPT/HCPCS: 77063; 77067

== ENCOUNTER 2023-07-04 16:55 | Emergency (ER) | payer OTHER, SELFPAY ==
[2023-07-04 16:56] VITALS: BP 141/67; PULSE 87; RESP 17; TEMP 36.2; O2SAT 100; BMI 24.0
[2023-07-04 18:37] LABS: Absolute Lymphocyte Count 2.13 X10^3/uL (0.83-4.51); Absolute Neutrophil Count 4.1 X10^3/uL (2.0-7.7); Basophil# 0.04 X10^3/uL; Basophil% 0.6 % (0-1); Eosinophil# 0.07 X10^3/uL; Hematocrit 42.7 % (37-47); Hemoglobin 14.4 g/dL (12.0-15.0); Lymphocyte # 2.13 X10^3/ul (0.83-4.51); Lymphocyte % 30.6 % (19-41); Mean Corp Hgb Conc 33.7 g/dL (32-36); Mean Corpuscular Hgb 29.3 pg (27.0-32.0); Mean Platelet Vol. 9.4 fl (6.2-12.0); Monocyte# 0.61 X10^3/uL; Monocyte% 8.8 % (0-10); NRBC Flagged by Analyzer 0 % (0-5); Neutrophil # 4.07 X10^3/uL (2.7-7.7); Neutrophil % 58.6 % (47-70); Platelet Count 263 K/mm3 (150-450); RBC Distribution Width CV 12.3 % (11.6-14.6); RBC Distribution Width SD 39.2 fl (35.1-43.9); Red Blood Count 4.91 M/mm3 (4.2-5.4)
[2023-07-04 18:41] LABS: Bacteria 0 SEEN /hpf (None Seen); Mucous, Urine 0 SEEN /hpf (<or=2+); Red Blood Cells-Urine 0 SEEN /hpf (0-5); Squamous Epithelial Cells - UA 0 SEEN /hpf (5-10); White Blood Cells 0 SEEN /hpf (0-5)
[2023-07-04 18:45] VITALS: BP 116/73; PULSE 72; RESP 18; O2SAT 99
[2023-07-04 18:49] LABS: Color, Urine Yellow (Yellow); Glucose, Dipstick Normal (Normal); Ketone-Dipstick Negative (Negative); Leukocyte Esterase-Dipstick Negative /ul (Negative); Nitrite-Dipstick Negative (Negative); Occult Blood-Urine Negative /ul (Negative); Protein-Dipstick Negative (Negative); Urine Bilirubin Dipstick Negative (Negative); Urine Clarity Clear (Clear); Urine Urobilinogen Normal (Normal)
[2023-07-04 18:51] LABS: Anion Gap 8 (5-15); BUN 17 mg/dL (7-18); BUN/Creat Ratio 19.8 RATIO (10-20); Calcium,Total 9.2 mg/dL (8.5-10.1); Chloride 106 mmol/L (98-107); Creatinine, Serum 0.86 mg/dL (0.55-1.02); EST Glomerular Filtration Rate 74 mL/min (>60); Est Glom Filt Rate - Afr Amer 90 mL/min (>60); Estimated Creatinine Clearance 61.21 ml/min; Glucose 101 mg/dL (74-106); Potassium 3.6 mmol/L (3.5-5.1); Sodium Level 140 mmol/L (136-145)
--- NOTE | 2023-07-04 20:06 | EDS_ITS ---
HPI HPI - GI History of Present Illness Chief Complaint: Abd Pain Detail of Chief Complaint: Periumbilical pain that migrated to the right inguinal/adnexal area Informant: patient Abdominal Pain/Flank Pain Onset: Today Context: Gradual Onset (Then became suddenly worse) Timing: Waxes and wanes Quality: Aching Location: - (Periumbilical that migrated to the right inguinal area) Current Severity: 10 Maximum Severity: 10 Worsened by: Car ride and Movement Relieved by: Nothing Nausea/Vomiting/Emesis GI Symptom: Positive for Nausea; Negative for Vomiting Diarrhea/Melena/Hematochezia GI Symptom: Negative for Diarrhea, Melena or Hematochezia Associated Symptoms Associated Symptoms: Negative for Dysuria, Frequency, Hematuria or Urgency Narrative Narrative: Patient is a 52-year-old woman with history of diverticulitis, who presents with periumbilical pain that started earlier today. The pain migrated to the right inguinal area. She did complain nausea without vomiting or diarrhea. She denies anorexia. She states she has had problems with constipation. She sat in a bathtub to see if this would help relax her. The pain became suddenly worse. states she was very weak and in obvious discomfort. He had to help her get ready to come to the hospital. She denies fever or chills. She denies respiratory symptoms. She denies urologic symptoms. She has no history of endometriosis or ovarian cyst. She has no history of renal or ureterolithiasis. Prior similar symptoms: Yes (Obstipation.) Recent Illness/Hospitalization: No [facility] Medical History Acute diverticulitis of intestine Contact with or exposure to other viral diseases RSV (respiratory syncytial virus infection) Segmental and somatic dysfunction of lumbar region Segmental and somatic dysfunction of pelvic region Segmental and somatic dysfunction of thoracic region Home Medications melatonin 5 mg capsule mg PO 11/05/20 [History Last Taken Unknown] magnesium 250 mg tablet 250 mg PO DAILY 06/21/22 [History Last Taken Unknown] vitamin B complex (B Complex-Vitamin B12 tablet) 1 tab PO DAILY 06/21/22 [History Last Taken Unknown] zinc gluconate 30 mg tablet 30 mg PO DAILY 06/21/22 [History Last Taken Unknown] amoxicillin 875 mg-potassium clavulanate 125 mg tablet 1 tab PO BID #20 tabs 04/04/23 [Rx Last Taken Unknown] prednisone 20 mg tablet 20 mg PO DAILY #5 tabs 04/04/23 [Rx Last Taken Unknown] Allergy/AdvReac Type Severity Reaction Status Date / Time Penicillins Allergy Mild rash Verified 07/04/23 16:58 Sulfa (Sulfonamide Allergy Mild rash Verified 07/04/23 16:58 Antibiotics) Surgical History History of dilatation and curettage History of tonsillectomy and adenoidectomy Social History Smoking Status: Never smoker alcohol intake: never substance use type: does not use caffeine: Yes what type of physical activity do you participate in: other details: crossfit frequency: 3-4 times per week seatbelt use: always do you feel safe at home: Yes additional social history: [place]- Patient works in radiology [facility] ROS ED Constitutional Constitutional ED: Denies chills, fever(s), subjective, sweats or weight loss ENT ENT ED: Denies ear pain, rhinorrhea or sore throat Cardiovascular Cardiovascular: Denies chest pain, orthopnea, palpitations, paroxysmal nocturnal dyspnea or racing heartbeat Respiratory/Chest Respiratory/Chest: Denies cough, dyspnea, dyspnea on exertion, orthopnea or paroxysmal nocturnal dyspnea Gastrointestinal Gastrointestinal: Reports abdominal pain and nausea; Denies constipation, diarrhea, melena or vomiting Genitourinary Genitourinary ED: Denies dysuria, hematuria or urinary frequency Musculoskeletal Musculoskeletal: Denies arthralgias, back pain, myalgias or neck pain Integumentary Denies rash Neurologic Neurologic: Denies headache(s), paresthesias or weakness Psychiatric Psychiatric: Denies anxiety or depression Hematologic/Lymphatic Hematologic/Lymphatic: Denies easy bleeding or easy bruising EXAM Physical Exam Const Vital Signs: 07/04/23 16:56 07/04/23 18:45 Temperature 97.2 F L Temperature Source Temporal Pulse Rate 87 72 Respiratory Rate 17 18 Blood Pressure 141/67 H 116/73 Blood Pressure Mean 91 87 Pulse Ox 100 99 Oxygen Delivery Method Room Air Positive well nourished and well developed General Appearance ED: well developed and NAD; Negative for pallor HEENT Reports TM's clear and moist mucous membranes normocephalic and atraumatic Tympanic Membrane ED: Yes TM's clear Eyes PERRL and EOMs intact bilaterally General Eye ED: Negative for pale conjunctiva or scleral icterus Neck no lymphadenopathy, supple and no JVD Resp normal respiratory effort and clear to auscultation bilaterally Cardio regular rate, regular rhythm, S1 normal heart sound, S2 normal heart sound and no murmurs GI no masses; Negative for non-tender or non-distended GI Narrative: There is tympany throughout. Inspection: abdominal distention Auscultation: hypoactive bowel sounds Palpation: soft and tender other (Near the right inguinal area. There is no lymphadenopathy or mass appreciated.); Negative for guarding, rigid, hepatomegaly, splenomegaly, hernia or mass Back/Spine no CVA tenderness Neuro CN's II-XII intact bilaterally and moves all extremities Sensorium / Orientation: alert Psych mental status grossly normal and thought process normal Skin no wounds General Skin Exam: Negative for jaundice or pallor Lesions: no lesions Rashes: no rashes MDM MDM MDM Narrative Medical decision making narrative: Differential diagnosis would include ureterolithiasis, atypical presentation of appendicitis, ruptured ovarian cyst last normal menstrual period 2 weeks ago. She still is menstruating. She has no signs or symptoms of . Will obtain CBC, BMP and UA. Prior records were reviewed. She does have history of diverticulitis several years ago. History & Record Review Additional record(s) reviewed:: Prior inpatient record, Prior outpatient record and Prior labs Lab Data Attestation: I reviewed the patient's lab results. Lab results narrative: CBC is normal. There is no shift. Electrolyte panel is normal. Urine is negative. Labs: Laboratory Results - last 24 hr 07/04/23 18:30 WBC 7.0 RBC 4.91 Hgb 14.4 Hct 42.7 MCV 87.0 MCH 29.3 MCHC 33.7 RDW Std Deviation 39.2 RDW Coeff of Timoteo 12.3 Plt Count 263 MPV 9.4 Immature Gran % (Auto) 0.400 Neut % (Auto) 58.6 Lymph % (Auto) 30.6 [place] % (Auto) 8.8 Eos % (Auto) 1.0 Baso % (Auto) 0.6 Absolute Neuts (auto) 4.1 Absolute Lymphs (auto) 2.13 Nucleated RBC % 0 Sodium 140 Potassium 3.6 Chloride 106 Carbon Dioxide 26.0 Anion Gap 8 BUN 17 Creatinine 0.86 Estim Creat Clear Calc 61.21 Est GFR (MDRD) Af Amer 90 Est GFR (MDRD) Non-Af 74 BUN/Creatinine Ratio 19.8 Glucose 101 Calcium 9.2 Urine Color Yellow Urine Clarity Clear Urine pH 7.0 Ur Specific [place] 1.010 Urine Protein Negative Urine Glucose (UA) Normal Urine Ketones Negative Urine Occult Blood Negative Urine Nitrite Negative Urine Bilirubin Negative Urine Urobilinogen Normal Ur Leukocyte Esterase Negative Urine RBC 0 SEEN Urine WBC 0 SEEN Ur Squamous Epith Cells 0 SEEN Urine Bacteria 0 SEEN Urine Mucus 0 SEEN Treatment and Re-Evaluation :: When patient was reassessed at 195 her pain had resolved. Suspect this was due to a ruptured ovarian cyst. This also may represent irritable bowel/obstipation. Discharge Plan Triage Chief Complaint: Abd Pain ED Provider: Kemrit Barfield Dx/Rx/DC Orders Clinical Impression: Right-sided abdominal pain of unknown cause, History of diverticulitis Instructions: ED Abdominal Pain Unkn Cause Fem, ED Ovarian Cyst Prescriptions: No Action melatonin 5 mg capsule PO zinc gluconate 30 mg tablet 30 mg PO DAILY vitamin B complex [B Complex-Vitamin B12] Tablet 1 tab PO DAILY magnesium 250 mg tablet 250 mg PO DAILY amoxicillin-pot clavulanate 875-125 mg tablet 1 tab PO BID Qty: 20 0RF prednisone 20 mg tablet 20 mg PO DAILY Qty: 5 0RF Primary Care Provider: Kristen Vigil Referrals: Kristen Vigil, [Primary Care Provider] - As Needed Disposition Disposition: Home, Self Care
[2023-07-04 20:25] VITALS: BP 118/74; BP 118/82; BP 138/95; PULSE 78; PULSE 80; PULSE 81
[2023-07-04 20:27] VITALS: BP 118/74; PULSE 80; RESP 18; TEMP 36.2; O2SAT 100
== END 2023-07-04 20:30 | disposition home or self-care (01) ==
PROVIDERS: Emergency Provider Emergency Medicine; PCP Internal Medicine; Visit Provider Emergency Medicine
DX: R10.9 Unspecified abdominal pain (principal); Z87.19 Personal history of other diseases of the digestive system
CPT/HCPCS: 80048; 81001; 85025; 99283; A4216

== ENCOUNTER 2023-12-22 13:52 | Outpatient (CLI) | payer OTHER, SELFPAY ==
--- NOTE | 2023-12-22 14:22 | BI_ITS ---
MAMMOGRAPHY - BILATERAL DIAGNOSTIC REASON FOR EXAM: Female, 53 years old. Left palpable lump. This varies with menses. PERTINENT HISTORY: Non-contributory. TECHNIQUE: Digital bilateral breast tanna (3D mammographic acquisition) in the CC and MLO projections. 2-D mediolateral oblique (MLO) and craniocaudad (CC) views of both breasts were obtained. CAD: Full Field Digital Mammography with Computer Added Detection was performed. COMPARISON: Comparison is made with prior study dated December 28, 2022 and December 16, 2020. FINDINGS: Breast Composition: The breasts are extremely dense, which lowers the sensitivity of mammography. There are no dominant masses or suspicious calcifications. No other significant abnormalities are identified. There has been no significant change since the prior study. BI/DIAG MAMM W/CAD, BILAT IMPRESSION: Stable bilateral diagnostic mammogram. With the patient''s history of a palpable lump in the upper outer quadrant of the left breast, correlation with ultrasound is recommended. ASSESSMENT CATEGORY: BIRADS Category 0: Incomplete. Need additional imaging evaluation. A letter regarding these results will be sent to the patient by the facility within 30 days. Approximately 10% of breast cancers are not detected by mammography. A normal mammogram should not delay biopsy of a clinically suspicious abnormality. Electronically Signed: Adam Vasques MD at 8:17 EDT ,
--- NOTE | 2023-12-22 14:22 | US_ITS ---
STUDY: ULTRASOUND BREAST - LEFT REASON FOR EXAM: Female, 53 years old. Palpable lump left breast. TECHNIQUE: Axial and longitudinal images of the LEFT breast were performed with a high resolution ultrasound transducer. # OF IMAGES: 18 COMPARISON: Comparison is made with prior mammogram done earlier today. FINDINGS: LEFT Breast: The upper outer quadrant of the left breast was examined. There is dense fibroglandular tissue. No solid or cystic mass is seen. US/Breast Limited Unilateral IMPRESSION: No sonographic abnormality is seen. ASSESSMENT CATEGORY: BIRADS Category 2: Benign. A letter regarding these results will be sent to the patient by the facility within 30 days. Electronically Signed: Adam Vasques MD at 8:18 EDT ,
== END 2023-12-22 23:59 | disposition home or self-care (01) ==
LOC: OPBI 14:20
PROVIDERS: PCP Internal Medicine; Referring Provider Obstetrics & Gynecology; Visit Provider Obstetrics & Gynecology
DX: N63.20 Unspecified lump in the left breast, unspecified quadrant (principal); R92.322 Mammographic fibroglandular density, left breast
CPT/HCPCS: 76642; 77062; 77066; G0279

== ENCOUNTER 2024-07-12 08:59 | Outpatient (CLI) | payer OTHER, SELFPAY ==
--- NOTE | 2024-07-12 09:02 | CT_ITS ---
PROCEDURE: LIMITED CHEST CT CARDIAC ONLY REASON FOR EXAM: SCREENING FOR HEART DISEASE TECHNIQUE: Supine chest CT without contrast, One or more dose reduction techniques were used (e.g., Automated exposure control, adjustment of the mA and/or kV according to patient size, use of iterative reconstruction technique). COMPARISON: None FINDINGS: Hardware: None Lymph nodes: No mediastinal hilar or axillary lymphadenopathy. Heart and Vasculature: Normal heart size. No pericardial effusion. Coronary Artery Calcifications: Absent Lungs and Airways: The lungs are normally expanded and clear. No septal thickening nodules or abnormal pulmonary opacities. Pleura: Unremarkable Upper Abdomen: Unremarkable Bones: Degenerative changes of the thoracic spine. CT/Limited Chest CT Cardiac Only IMPRESSION: No significant coronary artery calcification is seen. Reading Location: [place] [id number]
--- NOTE | 2024-07-15 07:39 | CA.SCORE ---
Calcium Scoring Date of Study:: 07/12/24 Indications Indications: Screening Coronary Calcium Scoring: High-resolution Computed Tomographic imaging of the chest was performed on [07/12/24 ], with particular attention paid to the coronary arteries. Images from the examination were analyzed for the presence and extent of coronary artery calcification , using coronary calcium quantification software. The patient tolerated the procedure well and there were no complications. The results of the coronary calcification analysis are provided below. Findings Coronary Artery Left Main (LM): 0 Left Anterior Descending (LAD): 0 Left Circumflex (LCX): 0 Right Coronary Artery (RCA): 0 Total Agatston Score: 0 Percentile Rankin% Calcium Scoring Interpretation: Different methods to categorize the overall amount of coronary plaque. Overall amount CAC SIS Visual of coronary plaque P1 Mild -100 <2 1-2 vessels with mild amount of plaque P2 Moderate 101-300 3-4 1-2 vessels with moderate amount, 3 vessels with mild amount of plaque P3 Severe 301-999 5-7 3 vessels with moderate amount, 1 vessel with severe amount of plaque P4 Extensive >1000 >8 2-3 vessels with severe amount of plaque Conclusion: No significant atherosclerotic plaquing noted.
== END 2024-07-12 23:59 | disposition home or self-care (01) ==
LOC: CT 09:00
PROVIDERS: PCP Nurse Practitioner Family; Referring Provider Nurse Practitioner Family; Visit Provider Nurse Practitioner Family
DX: Z13.6 Encounter for screening for cardiovascular disorders (principal)
CPT/HCPCS: 75571; 76380

== ENCOUNTER 2024-09-03 11:30 | Outpatient (RCR) | payer OTHER, SELFPAY ==
--- NOTE | 2024-08-26 17:22 | HP.OTEVAL ---
Patient's Visit Information Visit Information Visit Information: VIRI HENDRICKS is a 53 year old F, referred to Occupational Therapy by Dr. Vincent Pimentel DO, with a diagnosis of medial epicondylitis. Date of Evaluation: 08/26/24 Occupational Therapist: Griselda Hancock, MISTI/Arthur, CHT Subjective Subjective: This 53-year-old female with dx of medial epicondylitis of right elbow. pt states this has been going on for 6-8 months. States she has stopped doing her cross fit workout and has been trying to avoid irritation elbow positions. pt states she has noticed when she rests the pain never goes completely away, gets better but does not go away. pt states she does have numbness in her LF on and off. states this feeling comes and goes. pt does CrossFit 2-3 days a week- watches grandchildren ages 18 months and 2 months old she does carry them with her right but is trying to change position or carry with her left. 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 pt would like to know what more she can do to feel better. Pain right UE: Current Pain Intensity: 2 ROM Elbow: right+8/147 left +5/145 Forearm: right/left WNL Wrist: right 65/60 left 65/60 Strength Pediatrician Managing Partner: right 60# left 60# Lateral Pinch: right 16# left 18# Tripod Pinch: right 18# left 18# Sensation Thumb: right 2.83 left 2.83 interpretation Normal sensation Index: right 2.83 left 2.83 interpretation Normal sensation Middle: right 2.83 left 2.83 interpretation Normal sensation Ring: right 2.83 left 2.83 interpretation Normal sensation Little: right 2.83 left 2.83 interpretation Normal sensation Quick DASH-Disab of Arm,Shoulder& Hand Quick DASH Score: 23.3325 Goals Goal:: pt will report no pain greater than 1/10 with use of right UE with ADls by d/c. pt will report no pian with medial elbow palpation by d/c Goal:: Pt will demo understanding of work/lifting and carry ergonomics to decrease stress on tendons to increase pts independent with ADLs, IADLS and work tasks by d/c. Pt will demo understanding of using supportive bracing 80% of workday/ADLS to decrease stress on tendon origin to allow healing and decrease pain by end of session. Rehabilitation General Assessment: pt demo with positive symptoms of medial epicondylitis and ulnar nerve impingement. Pain limits pts functional use of right dominate UE with ADls and IADLs, pt would benefit from further skilled OT services 1-2x week for 4-6 weeks to decrease pain, ed. pt on elbow/wrist ergo. ulnar nerve glides and work ergo. pt demo understanding and agree to POC. Rehabilitation Potential: Good Anticipated Interventions Anticipated Interventions: A/AAROM/PROM, Strengthening, Triggerpoint Release, Modalities, Orthoses, Joint Protection/Energy Conservation, Ergonomic Education, Education re assistive Equipment, Education re Diagnosis and Home Program Visit Plan Frequency: 1-2x /Week Duration: 4-6 Weeks TEXT: Thank you for the opportunity to evaluate your patient. For Medicare and Medicare HMO plans, please review the plan of care and approve it. It will need to be FAXED BACK to us at [phone] for Medicare purposes. Please let me know if there are questions or concerns regarding this plan of care. Physician Signature: Date:
--- NOTE | 2024-12-19 09:56 | HP.OT.NRP ---
Patient Information Patient Information: VIRI HENDRICKS was seen in my office for initial evaluation on 08/26/24. The following Plan of Care was established for this patient: POC Established Initial Frequency: 1-2x /Week Initial Duration: 4-6 Weeks Plan: cont with medial epi conservative guidelines nerve glides ulnar nerve Anticipated Interventions Anticipated Interventions: A/AAROM/PROM, Strengthening, Triggerpoint Release, Modalities, Orthoses, Joint Protection/Energy Conservation, Ergonomic Education, Education re assistive Equipment, Education re Diagnosis and Home Program Last Seen Last Seen: This patient was last seen in our office 09/03/24. Pertinent comments regarding their Occupational therapy will appear below: No further apts have been scheduled. Due to time lapse in service pt is d/c. At this point I will be discontinuing this patient from occupational therapy. I would be happy to see this patient again in the future if found appropriate by the physician. Thank you! Griselda Hancock, OTR/L, CHT
--- NOTE | 2025-01-01 13:20 | HP.OTDCSUM_ITS ---
Discharge Summary D/C Summary: It has been my pleasure to treat VIRI HENDRICKS under orders from Dr. Vincent Pimentel, DO, for the diagnosis of medial epicondylitis for a total of 2 visit(s). Please see the following information for a summary of their discharge status. Goals Patient Goals: Decrease Pain, Use Hand/Wrist/Arm Normally Again, Decrease Tingling/Numbness and Be More Independent in ADLS Goal:: pt will report no pain greater than 1/10 with use of right UE with ADls by d/c. pt will report no pian with medial elbow palpation by d/c Goal:: Pt will demo understanding of work/lifting and carry ergonomics to decr ease stress on tendons to increase pts independent with ADLs, IADLS and work tasks by d/c. Pt will demo understanding of using supportive bracing 80% of workday/ADLS to decrease stress on tendon origin to allow healing and decrease pain by end of 2nd session. Plan Plan: cont with medial epi conservative guidelines nerve glides ulnar nerve D/C Information d/c sentence: If there are questions or concerns regarding this patient's occupational therapy, please fell free to call me at [phone]. Thank you for the referral of this patient. Sincerely, Griselda Hancock, JAKER/L, CHT
== END 2024-09-03 19:00 | disposition home or self-care (01) ==
LOC: OT 11:30
PROVIDERS: PCP Nurse Practitioner Family; Referring Provider Student in an Organized Health Care Education/Training Program; Visit Provider Student in an Organized Health Care Education/Training Program
DX: M77.01 Medial epicondylitis, right elbow (principal); M25.521 Pain in right elbow
CPT/HCPCS: 97035; 97110; 97140; 97166

== ENCOUNTER → 2024-09-04 | Outpatient (CLI) | payer OTHER, SELFPAY ==
--- NOTE | 2024-09-04 11:24 | NEURO ---
NCS and/or EMG Patient Report Ordering Doctor: Vincent Pimentel DATE OF SERVICE: 09/04/24 Bernarda presents electrodiagnostic testing of the right upper limb. She reports intermittent numbness in the 4th and 5th digits of the right hand with pain around the medial elbow. Electrodiagnostic findings: Right median motor nerve demonstrates normal distal latency amplitude and conduction velocity. Right ulnar motor responses within normal limits, including conduction across the elbow. Normal right median and right ulnar F?waves. Sensory responses are normal. Needle EMG testing was performed in the right upper limb. All muscles tested showed no evidence of denervation with normal motor unit action potentials. Electrodiagnostic impression: This is a normal electrodiagnostic study of the right upper limb. There is no electrodiagnostic evidence for peripheral neuropathy, including carpal tunnel or cubital tunnel syndrome. There is no electrodiagnostic evidence for cervical radiculopathy Multi Select Codes Neurology Neurology Interp Codes: 97755-41 Musc test done w/n test comp (interp) and 41787-55 Nrv cndj test 7-8 studies (interp)
== END | disposition home or self-care (01) ==
LOC: PSN 06:36
PROVIDERS: PCP Nurse Practitioner Family; Referring Provider Student in an Organized Health Care Education/Training Program; Visit Provider Student in an Organized Health Care Education/Training Program
DX: M77.01 Medial epicondylitis, right elbow (principal); R20.0 Anesthesia of skin
CPT/HCPCS: 95886; 95910

== ENCOUNTER → 2024-12-31 | Outpatient (CLI) | payer OTHER, SELFPAY ==
--- NOTE | 2024-12-31 12:15 | BI_ITS ---
EXAM: SCRN MAMM (CAD)W/ROSSANA BILAT DATE: 12/31/2024 CLINICAL HISTORY: F, Age 54 y/o , SCREEN FOR BREAST CANCER TECHNIQUE: Procedure Code: [id number] Modality: MG Procedure: SCRN MAMM (CAD)W/ROSSANA BILAT COMPARISON: Prior exam(s) were compared FINDINGS: TISSUE DENSITY: The breasts are heterogeneously dense, which may obscure small masses. Bilateral Breast Mammographic Findings: No suspicious masses, calcifications or other abnormalities are identified. BI/SCRN MAMM (CAD)W/ROSSANA BILAT IMPRESSION: No mammographic evidence of malignancy. OVERALL FINAL ASSESSMENT BI-RADS 1: NEGATIVE. RECOMMENDATION: Routine annual follow-up in 1 Year A letter with findings and recommendations will be mailed to the patient. Reading Location: [id number]
--- OUTSIDE RECORDS SUMMARY | 2024-12-31 21:27 | XMS RPT_ITS | CCD ---
Author Organization [facility] Care Team Providers Care Under Cutter Name Role Phone Melissa Daley LPN Unavailable [phone] Shay Og Unavailable Janice Lawler LPN Unavailable Unavailable Janice Lawler LPN Unavailable Unavailable Dave Cortez Primary Care Provider Dr. Dave Cortez Primary Care Provider [phone] Dr. Dave Cortez Referring Provider [phone] Dr. Beth Oliva Attending Provider [phone] Dave Cortez Primary Care Provider Dr. Dave Cortez Primary Care Provider [phone] Dr. Dave Cortez Referring Provider Dr. Beth Oliva Attending Provider [phone] Minerva Bird Attending Provider Dr. Dave Cortez Primary Care Provider Dr. Dave Cortez Referring Provider Marie NIELSON, NISREEN Martinez Attending Provider Kristen Vigil DO Primary Care Provider SELF Referring Unavailable LINDA REA II Attending [facility], No Primary Primary Care Provider Unavailable Assessment, Health Risk Attending Provider Unava ilable Assessment, Health Risk Referring Provider Unava ilable Thang SORORITY MOTHER-C, Belem Maki Primary Care Provider Thang SORORITY MOTHER-C, Belem Maki Attending Provider [phone] Desir SORORITY MOTHER-C, Belem Maki Referring Provider Desir SORORITY MOTHER-C, Belem Maki Other Provider [phone] Marie ROSALES, Dr. Perrin Attending Provider Desir SORORITY MOTHER-C, Belem Meléndezt Primary Care Provider Margarito KEARNEY, Dr. Kaur Attending Provider [phone] Margarito KEARNEY, Dr. Kaur Referring Provider Margarito DO, Dr. Kaur Other Provider Raúl ROSALES, Dr. Bernstein Attending Provider [phone] Shanel ROSALES, Dr. Taveras Attending Provider Thang SORORITY MOTHER-C, Belem Garciaaret Referring Provider [phone] Pelon ROSALES, Dr. Palma Attending Provider Vincent Pimentel Referring Unavailable Vincent Pimentel Attending Unavailable Belem Desir Primary Care Unavailabl e Kristen Vigil Primary Care Unavailable Minerva Bird Referring Unavailable Minerva Bird Attending Unavailable Belem Desir Primary Care Unavailabl e Thang, Belem Meléndezt Referring Unavailabl e Aydin Salazar Attending Unavailable Vincent Pimentel Referring Unavailable Vincent Pimentel Consulting Unavailable Day Olsen Attending Unavailable Belem Desir Primary Care Unavailabl e Desir, Belem Meléndezt Referring Unavailabl e Thang Belem Shanthi Attending Unavailabl e Thang Belem Maki Primary Care Unavailabl e Desir, Belem Garciaaret Primary Care Unavailabl e Desir, Belem Meléndezt Referring Unavailabl e Thang, Belem Garciaaret Consulting Unavailabl e MarieAydin hollingsworth Attending Unavailable Belem Desir Primary Care Unavailabl e Thang, Belem Meléndezt Referring Unavailabl e Minerva Bird Attending Unavailable Vincent Pimentel Referring Unavailable SpittVincent paige Attending Unavailable Desir, Belem Shanthi Primary Care Unavailabl e Assessment, Health Risk Referring Unavaila ble Assessment, Health Risk Attending Unavaila ble Care Physician, No Primary Primary Care Unava ilable Allergies Allergy Classification Reported Allergen(s) Allergy Type Date of Onset Reaction(s) Facility (4 sources) penicillin g drug allergy 11-26-19 [facility] Work Phone: (4 sources) SULFAMETHOXAZOLE MICRO drug allergy 11-26-19 [facility] Work Phone: (4 sources) Penicillin G; Translations: [PENICILLIN G] Drug Allergy 09-19-19 15 Unknown [facility] [place] (4 sources) Sulfonamides (Antibiotic); Translations: [SULFA (SULFONAMIDE ANTIBIOTICS)] Drug Allergy 09-19-19 15 Rash [facility] (5 sources) Penicillins Allergy to substance 06-22-[address] [facility] (5 sources) Sulfonamides (Antibiotic) Allergy to substance 06-22-[address] [facility] (3 sources) gatifloxacin; Translations: [GATIFLOXACIN] Drug Allergy 12-16-19 Other: See Comments [facility] (1 source) Penicillins Drug allergy (disorder) 12-20-19 [facility] (1 source) Sulfonamides (Antibiotic) Drug allergy (disorder) 12-20-19 [facility] Medications Current Medications Medication Drug Class(es) Dates Sig (Normalized) Sig (Original) 24 hr buPROPion hydrochloride 150 mg extended release oral tablet (1 source) Aminoketone Start: 12-19-2024 take 1 tablet by mouth once daily in the morning Bupropion Hcl (Wellbutrin Xl) 150 mg tablet extended release 24 hr Active 150 mg PO EVERY MORNING 30 December 19, 2024 12:00am cyanocobalamin, vitamin B-12, (VITAMIN B-12 ORAL) (1 source) cyanocobalamin, vitamin B-12, (VITAMIN B-12 ORAL) Take by mouth. Active Hormone [place] (1 source) Start: 12-19-2024 Hormone [place] Active PO December 19, 2024 12:00am ibuprofen 100 mg oral tablet (3 sources) Nonsteroidal Anti-inflammatory Drug take 1 tablet by mouth every six hours as needed Ibuprofen 100 mg tablet Take 100 mg by mouth every 6 hours as needed. Active Comment on above: Take 100 mg by mouth every 6 hours as needed. Lactobacillus Combination No.9 (Adult 50 Plus Probiotic) 4 billion cell capsule (2 sources) Start: 12-15-2023 take 4 capsules by mouth once daily Lactobacillus Combination No.9 (Adult 50 Plus Probiotic) 4 billion cell capsule Active 4000 NMA PO DAILY December 15, 2023 12:00am administer with a meal Magnesium (5 sources) Start: 06-21-2022 take 1 tablet by mouth once daily Magnesium 250 mg tablet Active 250 mg PO DAILY June 21, 2022 1:00am Start: 06-21-2022 take 250 mg by mouth once katherine y Magnesium Active 250 MG PO DAILY June 21, 2022 1:00am multivitamin tablet (1 source) take 1 tablet by deep th once daily multivitamin tablet Take 1 tablet by mouth once daily. Active ORGAN CONCENTRATES (ADRENAL ORAL) (3 sources) ORGAN CONCENTRAT ES (ADRENAL ORAL) Take by mouth. Active ORGAN CONCENTRAT ES (ADRENAL ORAL) Take by mouth. 0 Active Comment on above: Take by mouth. phenylephrine hydrochloride 25 mg/ml ophthalmic solution (3 sources) alpha-1 Adrenergic Agonist Start: 12-20-2023 End: 12-21-2023 PHENYLephrine 2.5 % 1 Drop (AK-DILATE, GUERO-SYNEPHRINE) Start: 12-20-2023 End: 12-21-2023 1 Drop, BOTH EYES, DIRECT ED, Starting on Mon12/20/23 at 1800, Until Mon12/21/23 at 0559, Administer for dilation PROTECT FROM LIGHT Start: 12-02-2021 End: 12-02-2021 PHENYLephrine 2.5 % 1 Drop ( AK-DILATE, GUERO-SYNEPHRINE) Testosterone Propionate 2 % crea (3 sources) Testosterone Pro pionate 2 % crea Apply as directed. Active Testosterone Pro pionate 2 % crea Apply as directed. 0 Active Comment on above: Apply as directed. tropicamide 5 mg/ml ophthalmic solution (1 source) Anticholinergic Start: 12-15-2022 End: 12-15-2022 tropicamide 0.5 % 1 Drop (MYDRIACYL) Completed/Discontinued Medications Medication Drug Class(es) Dates Sig (Normalized) Sig (Original) amoxicillin 500 mg oral capsule (10 sources) Penicillin-class Antibacterial Start: 01-23-2020 End: 02-02-2020 take 2 capsules by mouth twice daily Amoxicillin 500 mg capsule Discontinued 1000 mg PO TWICE A DAY 40 10 January 23, 2020 12:00am February 01, 2020 12:00am February 02, 2020 12:03am Start: 01-23-2020 End: 02-02-2020 take 1000 mg by mouth twice daily Amoxicillin Discontinued 1000 MG PO TWICE A DAY 40 January 23, 2020 12:00am February 02, 2020 12:03am Start: 12-13-2018 End: 12-23-2018 take 2 capsules by mouth twice daily Amoxicillin 500 mg capsule Discontinued 1000 mg PO TWICE A DAY 40 December 13, 2018 12:00am December 22, 2018 12:00am December 23, 2018 12:08am Pt notes no h/o allergic reaction to amoxicillin, only PCN Start: 12-13-2018 End: 12-23-2018 take 1000 mg by mouth twice daily Amoxicillin Discontinued 1000 MG PO TWICE A DAY 40 December 13, 2018 12:00am December 23, 2018 12:08am Pt notes no h/o allergic reaction to amoxicillin, only PCN amoxicillin 875 mg / clavulanate 125 mg oral tablet (13 sources) Penicillin-class Antibacterial Start: 04-04-2023 End: 12-15-2023 Amoxicillin-Pot Clavulanate 875-125 mg tablet Discontinued 1 {tbl} PO TWICE A DAY 20 April 04, 2023 1:00am December 15, 2023 10:34am Start: 04-04-2023 take 1 tablet by deep th twice daily Amoxicillin-Pot Clavulanate Active 1 TABLET PO TWICE A DAY April 04, 2023 1:00am Start: 01-05-2021 End: 01-15-2021 Amoxicillin-Pot Clavulanate (Augmentin) 875-125 mg tablet Discontinued 1 {tbl} PO Q12H 20 10 January 05, 2021 12:00am January 14, 2021 12:00am January 15, 2021 12:01am Acute sinusitis, unspecified Start: 07-29-2018 End: 07-29-2018 Amoxicillin-Pot Clavulanate (Augmentin) 875-125 mg tablet Discontinued 1 {tbl} PO TWICE A DAY 20 July 29, 2018 12:00am July 29, 2018 10:28am ciprofloxacin 500 mg oral tablet (5 sources) Quinolone Antimicrobial Start: 08-25-2018 End: 09-05-2018 take 1 tablet by mouth twice daily Ciprofloxacin Hcl 500 MG tablet Discontinued 500 mg PO TWICE A DAY August 25, 2018 12:00am September 05, 2018 3:27pm doxycycline monohydrate 100 mg oral tablet (4 sources) Tetracycline-class Drug Start: 11-25-2016 End: 12-05-2016 AVIDOXY 100 MG TABS Take 1 tablet every 12 hours DOXYCYCLINE MONOHYDRATE [id number] Shay NIELSON Start: 11-25-2016 End: 12-05-2016 AVIDOXY 100 MG TABS Take 1 t ablet every 12 hours DOXYCYCLINE MONOHYDRATE [id number] Shay NIELSON flibanserin 100 mg oral tablet (8 sources) Start: 09-23-2019 End: 11-05-2020 take 1 tablet by mouth at bedtime Flibanserin (Addyi) 100 mg tablet Discontinued 100 mg PO AT BEDTIME 15 04September 23, 2019 12:00am November 05, 2020 1:10pm flibanserin (ADD TELUGU ORAL) Take by mouth. Active flibanserin (ADD TELUGU ORAL) Take by mouth. 0 Active Comment on above: Take by mouth. fluconazole 150 mg oral tablet (10 sources) Azole Antifungal Start: 12-29-2020 End: 09-27-2021 Fluconazole (Diflucan) 150 mg tablet Discontinued 150 mg PO .COMPLEX 2 0 April 19, 2021 10:30am September 27, 2021 2:27pm 150 mg PO now and in 72 hours melatonin 5 mg oral capsule (8 sources) Start: 11-05-2020 End: 12-15-2023 Melatonin 5 mg capsule Discontinued mg PO November 05, 2020 12:00am December 15, 2023 10:34am Start: 11-05-2020 Melatonin Acti ve MG PO November 05, 2020 12:00am Comment on above: Take by mouth. metroNIDAZOLE 500 mg oral tablet (5 sources) Nitroimidazole Antimicrobial Start: 08-26-19 End: 09-06-19 take 1 tablet by mouth three times daily Metronidazole 500 MG tablet Discontinued 500 mg PO THREE TIMES A DAY August 25, 2018 12:00am September 05, 2018 3:27pm Multivitamin tablet (2 sources) Start: 12-15-19 End: 12-20-19 Multivitamin tablet Discontinued 1 {tbl} PO DAILY December 15, 2023 12:00am December 19, 2024 9:00am Start: 12-15-2023 Multivitamin t ablet Active 1 {tbl} PO DAILY December 15, 2023 12:00am ondansetron 4 mg disintegrating oral tablet (5 sources) Serotonin-3 Receptor Antagonist Start: 08-25-2018 End: 09-05-2018 take 1 tablet by mouth every eight hours as needed for nausea Ondansetron 4 MG tablet Discontinued 4 mg PO EVERY 8 HOURS NEEDED as needed for Nausea August 25, 2018 12:00am September 05, 2018 3:27pm predniSONE 20 mg oral tablet (3 sources) Start: 04-04-2023 End: 12-15-2023 take 1 tablet by mouth once daily Prednisone 20 mg tablet Discontinued 20 mg PO DAILY 5 April 04, 2023 1:00am December 15, 2023 10:34am progesterone 100 mg oral capsule (20 sources) Progesterone Start: 07-10-2018 End: 12-09-2022 take 1 capsule by mouth once daily in the morning Progesterone Micronized (Prometrium) 100 mg capsule Discontinued 100 mg PO EVERY MORNING 90 September 30, 2021 12:00am November 22, 2021 1:49pm only on certain days of menstrual cycle Comment on above: Take 100 mg by mouth once daily. Thrive Multivitamin (5 sources) Start: 10-09-2018 End: 11-22-2021 Thrive Multivitamin Discontinued 2 {tbl} PO DAILY October 09, 2018 12:00am November 22, 2021 1:12pm SUPPLEMENT Start: 10-09-2018 End: 11-22-2021 Thrive Multivitamin Disconti nued 2 {tbl} PO DAILY October 09, 2018 12:00am November 22, 2021 1:12pm Start: 10-09-2018 End: 11-22-2021 take 2 tablets by mouth once daily Thrive Multivitamin Discontinued 2 TABLET PO DAILY October 09, 2018 12:00am November 22, 2021 1:12pm tobramycin 3 mg/ml ophthalmic solution (5 sources) Aminoglycoside Antibacterial Start: 03-18-2020 End: 11-05-2020 take 0.3 drop(s) into the eye(s) every two hours Tobramycin 0.3 % drops Discontinued 1 NMA OPHTHALMIC Q2H 5 0 March 18, 2020 1:00am November 05, 2020 1:10pm To left eye while awake for 5 days Vitamin B Complex (B Complex-Vitamin B12) tablet (5 sources) Start: 06-21-2022 End: 12-15-2023 Vitamin B Complex (B Complex-Vitamin B12) tablet Discontinued 1 {tbl} PO DAILY June 21, 2022 1:00am December 15, 2023 10:34am Start: 06-21-2022 take 1 tablet by deep th once daily Vitamin B Complex (B Complex-Vitamin B12) tablet Active 1 TABLET PO DAILY June 21, 2022 1:00am vitamin b12 1 mg oral capsule (2 sources) Vitamin B12 Start: 12-15-2023 End: 12-19-2024 take 1 capsule by mouth once daily Cyanocobalamin (Vitamin B-12) 1,000 mcg capsule Discontinued 1000 ug PO DAILY December 15, 2023 12:00am December 19, 2024 9:00am zinc gluconate 30 mg oral tablet (5 sources) Start: 06-21-2022 End: 12-15-2023 take 1 tablet by mouth once daily Zinc Gluconate 30 mg tablet Discontinued 30 mg PO DAILY June 21, 2022 1:00am December 15, 2023 10:36am Problems Active Problems Problem Classification Problem Date Documented Da te Episodic/Chronic Abdominal pain (3 sources) Abdominal pain - cause unknown; Translations: [Unspecified abdominal pain] 07-04-2023 Episodic Blindness and vision defects (15 sources) Bilateral myopia of eyes; Translations: [Myopia, bilateral] Onset: 09-18-2014 Episodic Diverticulosis and diverticulitis (5 sources) Diverticulitis of intestine; Translations: [Diverticulitis of intestine, part unspecified, without perforation or abscess without bleeding] 09-25-2019 Chronic Fluid and electrolyte disorders (5 sources) Moderate dehydration; Translations: [Dehydration] 08-26-2018 Episodic Immunizations and screening for infectious disease (5 sources) Contact with or exposure to other viral diseases; Translations: [Exposure to COVID-19 virus] 12-27-2020 Episodic Inflammatory diseases of female pelvic organs (5 sources) Vaginitis; Translations: [Acute vaginitis] 12-29-2020 Episodic Comment on above: was on vaginal flagy l in past. await culture. may need detention suppressive therapy Menopausal disorders (2 sources) Menopausal syndrome; Translations: [Menopausal and female climacteric states] 12-19-2024 Chronic Comment on above: still having menses, discussed continuous OCP or wellbutrin. main complaints are ewight gain, decreased motivation, and some night sweats the week before menses. Miscellaneous mental health disorders (5 sources) Lack or loss of sexual desire; Translations: [Hypoactive sexual desire disorder] 11-05-2020 Chronic Comment on above: failed Addyi. discus sed counseling, does not want to stop prometrium. Mood disorders (6 sources) Premenstrual dysphoric disorder; Translations: [Premenstrual dysphoric disorder] 11-05-2020 Chronic Comment on above: prometrium. prometrium in the pa st. discussed continuous ocps. Nausea and vomiting (5 sources) Nausea and vomiting; Translations: [Nausea with vomiting, unspecified] 08-26-2018 Episodic Other bone disease and musculoskeletal deformities (15 sources) Segmental and somatic dysfunction; Translations: [Segmental and somatic dysfunction of lumbar region] 09-25-2019 Episodic Other bone disease and musculoskeletal deformities (2 sources) Segmental and somatic dysfunction of thoracic region; Translations: [Nonallopathic lesions, thoracic region] 06-21-2022 Episodic Other connective tissue disease (2 sources) Medial epicondylitis, right elbow; Translations: [Medial epicondylitis, right elbow] Onset: 10-14-2024 Episodic Other gastrointestinal disorders (3 sources) History of diverticulitis; Translations: [Personal history of other diseases of the digestive system] 07-04-2023 Episodic Other upper respiratory infections (15 sources) Acute ethmoidal sinusitis; Translations: [Acute ethmoidal sinusitis, unspecified] 09-25-2019 Episodic Residual codes; unclassified (1 source) Other specified postprocedural states; Translations: [Other postprocedural status] 10-13-2022 Episodic Retinal detachments; defects; vascular occlusion; and retinopathy (2 sources) Drusen of retina of bilateral eyes; Translations: [Drusen (degenerative) of macula, bilateral] 12-15-2022 Chronic Spondylosis; intervertebral disc disorders; other back problems (7 sources) Backache; Translations: [Dorsalgia, unspecified] 06-23-2022 Episodic Past or Other Problems Problem Classification Problem Date Documented Date Episodic/Chronic Inflammation; infection of eye (except that caused by tuberculosis or sexually transmitteddisease) (3 sources) Acute atopic conjunctivitis of bilateral eyes; Translations: [Acute atopic conjunctivitis, bilateral] Onset: 04-30-2015 04-30-2015 Episodic Nonmalignant breast conditions (3 sources) Breast lump; Translations: [Unspecified lump in the left breast, unspecified quadrant] Onset: 05-16-2024 12-16-2023 Episodic Comment on above: imaging ordered Other nervous system disorders (3 sources) Myokymia of eyelid; Translations: [Facial myokymia] Onset: 01-30-2017 01-30-2017 Episodic Other screening for suspected conditions (not mental disorders or infectious disease) (2 sources) Encounter for screening for cardiovascular disorders; Translations: [Encounter for screening for cardiovascular disorders] Onset: 07-22-2024 Episodic Other upper respiratory disease (4 sources) Pain in throat; Translations: [Acute pharyngitis, unspecified] Onset: 11-25-2016 11-25-2016 Episodic Results Test Name Value Interpretation Reference Range Facility OT D/C of Non Returning Pton 12-19-2024 OT D/C of Non Returning Pt [facility] [address] [place] [address] [address] [place] [address] / REHABILITATION SERVICES DISCHARGE SUMMARY MR#: [id number] Acct: [id number] Name: BERNARDA HENDRICKS Rep #: [id number] : 1970 53 From: Griselda CHAPPELL/Arthur, CHT Referring Dr.: Dr. Vincent Pimentel, DO Status: REG RCR Eval Date: Discharge Date: Patient Information Patient Information: BERNARDA HENDRICKS was seen in my office for initial evaluation on 08/26/24. The following Plan of Care was established for this patient: POC Established Initial Frequency: 1-2x /Week Initial Duration: 4-6 Weeks Plan: cont with medial epi conservative guidelines nerve glides ulnar nerve Anticipated Interventions Anticipated Interventions: A/AAROM/PROM, Strengthening, Triggerpoint Release, Modalities, Orthoses, Joint Protection/Energy Conservation, Ergonomic Education, Education re assistive Equipment, Education re Diagnosis and Home Program Last Seen Last Seen: This patient was last seen in our office 09/03/24. Pertinent comments regarding their Occupational therapy will appear below: No further apts have been scheduled. Due to time lapse in service pt is d/c. At this point I will be discontinuing this patient from occupational therapy. I would be happy to see this patient again in the future if found appropriate by the physician. Thank you! Griselda Hancock, OTR/L, CHT 12/19/24 0956 CC: JUSTYNA Desir; Dr. Vincent Pimentel, DO MK Signed Normal [facility] Vehicle Refinisher Office Visit Reporton 12-19-2024 Vehicle Refinisher Office Visit Report [facility] [address], [address] [place] [address] OFFICE VISIT Date of Service: 12/19/24 MR#: [id number] Acct: [id number] Name: BERNARDA HENDRICKS Rep #: [id number] : 1970 Provider: Dr. Minerva pereira MD Age/Sex: 53/F Location: [facility] Status: Signed Intake Vital Signs 12/15/23 10:41 12/19/24 08:59 Height 5 ft 2 in 5 ft 2 in Weight: 139 lb 9 oz BMI 25.5 BP 138/77 H Intake Visit Reasons: Kari-Menopause Clinical Account Manager Required: No Is patient in pain?: Yes (menstrual cramps) Allergies Penicillins Allergy (Mild, Verified 12/19/24 09:00) rash Sulfa (Sulfonamide Antibiotics) Allergy (Mild, Verified 12/19/24 09:00) rash Medications ???Medication ???Instructions ???Recorded ???Confirmed ???Type magnesium 250 mg tablet 250 mg PO DAILY 06/21/22 12/19/24 History lactobacillus combination no.9 4 4,000 mmu cells PO DAILY 12/15/23 12/19/24 History billion cell capsule (Adult 50 Plus Probiotic) Hormone [place] PO 12/19/24 12/19/24 History bupropion HCl 150 mg 24 hr tablet, 150 mg PO QAM #30 tabs 12/19/24 12/19/24 Rx extended release (Wellbutrin XL) Is last menstrual period known: Yes Last Menstrual Period: 12/18/24 Post menopausal: No Patient : No : No [facility] Medical History RSV (respiratory syncytial virus infection) Contact with or exposure to other viral diseases Acute diverticulitis of intestine Segmental and somatic dysfunction of pelvic region Segmental and somatic dysfunction of thoracic region Segmental and somatic dysfunction of lumbar region Surgical History History of dilatation and curettage History of tonsillectomy and adenoidectomy Social History (Updated 12/19/24 @ 09:02 by Rehana Zuleta) number of children: 2 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 The patient reports experiencing perimenopausal symptoms such as hot flashes and night sweats, particularly the week before her menstrual cycle begins. She continues to have regular periods, a lthough she notes some menstrual irregularities, including changes in flow and timing. She describes a significant decrease in energy levels, which she associates with her weight gain of approximately 7 to 8 pounds over the past two years, primarily distributed around her midsection. Despite maintaining a routine of CrossFit three times a week for the past ten years, she now finds herself lacking the motivation and energy to continue. The patient also reports experiencing dizziness, which occurs sporadically and is not accompanied by chest pain or shortness of breath. She has a history of low libido, which she describes as stable and not worsening. Joint pain, particularly in the hips, has become more noticeable, which she attributes to perimenopausal changes. She has experienced urinary tract infections in the past and has tried using an estrogen cream, which she discontinued due to irritation. Attestation: Documentation on this patient encounter was supported using ambient scribe technology/ voice AI technology. The patient consented to recording for the purpose of documenting the encounter. Provider reviewed content of the generated note prior to signature. Female Reproductive History Last Menstrual Period: 12/18/24 History 3 Elective abortions Hx Para 2 Spontaneous abortions 1 Hx # Term Pregnancies Ectopic pregnancies Hx # Pregnancies Multiple births # of living children Past Pregnancies Del. Date Name GA/Weeks Outcome Route Bth Weight Gen Labor Lgth Anesthesia Del Locatn Provider FOB Unknown Angus 1993 Unknown 1995 Ifeanyi live - full term ROS ROS Narrative - General: Reports low energy levels and weight gain. - Cardiovascular: Denies chest pain or shortness of breath. - Neurological: Reports dizziness, denies headaches. - Musculoskeletal: Reports joint pain in hips. - Genitourinary: Reports history of urinary tract infections, denies current symptoms. - Reproductive: Reports perimenopausal symptoms, including hot flashes and night sweats, and low libido. Exam Const General: cooperative, healthy appearing, comfortable, no acute distress an (more content not included)... Normal [facility] NCS and/or EMG Patienton NCS and/or EMG Patient [place] [facility] Pulmonary Services/Neurology [address] [place] [address] MR#: [id number] Acct: [id number] Name: BERNARDA HENDRICKS Rep #: [id number] : 1970 53 From: Day Olsen MD Referring Dr: Vincent Pimentel DO Status: REG C LI [facility] Date: 09/04/24 Sex: F C NCS and/or EMG Patient Report Ordering Doctor: Vincent Pimentel DATE OF SERVICE: 09/04/24 Bernarda presents electrodiagnostic testing of the right upper limb. She reports intermittent numbness in the 4th and 5th digits of the right hand with pain around the medial elbow. Electrodiagnostic findings: Right median motor nerve demonstrates normal distal latency amplitude and conduction velocity. Right ulnar motor responses within normal limits, including conduction across the elbow. Normal right median and right ulnar F???waves. Sensory responses are normal. Needle EMG testing was performed in the right upper limb. All muscles tested showed no evidence of denervation with normal motor unit action potentials. Electrodiagnostic impression: This is a normal electrodiagnostic study of the right upper limb. There is no electrodiagnostic evidence for peripheral neuropathy, including carpal tunnel or cubital tunnel syndrome. There is no electrodiagnostic evidence for cervical radiculopathy Multi Select Codes Neurology Neurology Interp Codes: 72444-06 Musc test done w/n test comp (interp) and 94545-25 Nrv cndj test 7- 8 studies (interp) 09/04/24 1126 Date Day Olsen MD CC: SORORITY MOTHER-C Belem Desir; Dr. Day Olsen MD; Dr. Vincent Pimentel DO Date Dictated: 09/04/24 112 Date Transcribed: 09/04/241123 Grinder Operator Tool: TWIN Signed Normal [facility] OT General Evaluationon 08-15 OT General Evaluation [facility] Occupational Therapy [address] [place] [address] / REHABILITATION SERVICES INITIAL EVALUATION MR#: [id number] Acct: [id number] Name: BERNARDA HENDRICKS Rep #: [id number] : 1970 53 From: Griselda HENRY CHT Referring Dr.: Dr. Vincent Pimentel DO Status: REG RCR Insurance: [employer]/[facility] Eval Date: SELF PAY INSURANCE Patient's Visit Information Visit Information Visit Information: BERNARDA HENDRICKS is a 53 year old F, referred to Occupational Therapy by Dr. Vincent Pimentel DO, with a diagnosis of medial epicondylitis. Date of Evaluation: 08/26/24 Occupational Therapist: MISTI Appiah/JENA Gibson Subjective Subjective: This 53-year-old female with dx of medial epicondylitis of right elbow. pt states this has been going on for 6-8 months. States she has stopped doing her cross fit workout and has been trying to avoid irritation elbow positions. pt states she has noticed when she rests the pain never goes completely away, gets better but does not go away. pt states she does have numbness in her LF on and off. states this feeling comes and goes. pt does CrossFit 2-3 days a week- watches grandchildren ages 18 months and 2 months old she does carry them with her right but is trying to change position or carry with her left. 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 pt would like to know what more she can do to feel better. Pain right UE: Current Pain Intensity: 2 ROM Elbow: right+8/147 left +5/145 Forearm: right/left WNL Wrist: right 65/60 left 65/60 Strength Solar Technician: right 60# left 60# Lateral Pinch: right 16# left 18# Tripod Pinch: right 18# left 18# Sensation Thumb: right 2.83 left 2.83 interpretation Normal sensation Index: right 2.83 left 2.83 interpretation Normal sensation Middle: right 2.83 left 2.83 interpretation Normal sensation Ring: right 2.83 left 2.83 interpretation Normal sensation Little: right 2.83 left 2.83 interpretation Normal sensation Quick DASH-Disab of Arm,Shoulder Hand Quick DASH Score: 23.3325 Goals Goal:: pt will report no pain greater than 1/10 with use of right UE with ADls by d/c. pt will report no pian with medial elbow palpation by d/c Goal:: Pt will demo understanding of work/lifting and carry ergonomics to decrease stress on tendons to increase pts independent with ADLs, IADLS and work tasks by d/c. Pt will demo understanding of using supportive bracing 80% of workday/ADLS to decrease stress on tendon origin to allow healing and decrease pain by end of 2nd session. Rehabilitation General Assessment: pt demo with positive symptoms of medial epicondylitis and ulnar nerve impingement. Pain limits pts functional use of right dominate UE with ADls and IADLs, pt would benefit from further skilled OT services 1-2x week for 4-6 weeks to decrease pain, ed. pt on elbow/wrist ergo. ulnar nerve glides and work ergo. pt demo understanding and agree to POC. Rehabilitation Potential: Good Anticipated Interventions Anticipated Interventions: A/OPHELIA/PROM, Strengthening, Triggerpoint Release, Modalities, Orthoses, Joint Protection/Energy Conservation, Ergonomic Education, Education re assistive Equipment, Education re Diagnosis and Home Program Visit Plan Frequency: 1-2x /Week Duration: 4-6 Weeks TEXT: Thank you for the opportunity to evaluate your patient. For Medicare and Medicare HMO plans, please review the plan of care and approve it. It will need to be FAXED BACK to us at [phone] for Medicare purposes. Please let me know if there are questions or concerns regarding this plan of care. Physician Signature: D ate: 08/26/24 1722 CC: JUSTYNA Desir; Dr. Vincent Pimentel DO MK Signed For Medicare only, by signing this I certify the plan of care. Physicians Signature Date Normal [facility] Coronary Angiography CTon Coronary Angiography CT [facility] Imaging Services [address] [place] [address] 07/15/24 0739 MR#: [id number] Acct: [id number] Name: BERNARDA HENDRICKS Rep #: [id number] : 1970 53 From: Aydin Salazar MD PCP: JUSTYNA Romano Status:REG CLI Y Location: CT Calcium Scoring Date of Study:: 07/12/24 Indications Indications: Screening Coronary Calcium Scoring: High-resolution Computed Tomographic imaging of the chest was performed on [07/12/24 ], with particular attention paid to the coronary arteries. Images from the examination were analyzed for the presence and extent of coronary artery calcification , using coronary calcium quantification software. The patient tolerated the procedure well and there were no complications. The results of the coronary calcification analysis are provided below. Findings Coronary Artery Left Main (LM): 0 Left Anterior Descending (LAD): 0 Left Circumflex (LCX): 0 Right Coronary Artery (RCA): 0 Total Agatston Score: 0 Percentile Rankin% Calcium Scoring Interpretation: Different methods to categorize the overall amount of coronary plaque. Overall amount CAC SIS Visual of coronary plaque P1 Mild -100 <2 1-2 vessels with mild amount of plaque P2 Moderate 101-300 3-4 1-2 vessels with moderate amount, 3 vessels with mild amount of plaque P3 Severe 301-999 5-7 3 vessels with moderate amount, 1 vessel with severe amount of plaque P4 Extensive >1000 >8 2-3 vessels with severe amount of plaque Conclusion: No significant atherosclerotic plaquing noted. 07/15/24 0741 Date Aydin Salazar MD Cosigner Signature (if applicable): Date CC: JUSTYNA Desir; Dr. Aydin Salazar MD Signed Normal [facility] Limited Chest CT Cardiac Onl yon 07-12-[address] Cardiac Only [facility] Imaging Services [address] [place] [address] Cardiac Only MR#: [id number] Acct: [id number] Name: BERNARDA HENDRICKS Rep #: [id number] : 1970 F 53 From: Adam choe MD PCP: JUSTYNA Romano Status: [facility] Study: Limited Chest CT Cardiac Only Date of Exam: Exam# [id number] Ordering Dr: Belem Desir PROCEDURE: LIMITED CHEST CT CARDIAC ONLY REASON FOR EXAM: SCREENING FOR HEART DISEASE TECHNIQUE: Supine chest CT without contrast, One or more dose reduction techniques were used (e.g., Automated exposure control, adjustment of the mA and/or kV according to patient size, use of iterative reconstruction technique). COMPARISON: None FINDINGS: Hardware: None Lymph nodes: No mediastinal hilar or axillary lymphadenopathy. Heart and Vasculature: Normal heart size. No pericardial effusion. Coronary Artery Calcifications: Absent Lungs and Airways: The lungs are normally expanded and clear. No septal thickening nodules or abnormal pulmonary opacities. Pleura: Unremarkable Upper Abdomen: Unremarkable Bones: Degenerative changes of the thoracic spine. CT/Limited Chest CT Cardiac Only IMPRESSION: No significant coronary artery calcification is seen. Reading Location: [place] [address] CC: JUSTYNA Desir Grinder Operator Tool: Signed Normal [facility] Absolute neutrophil countOrd ered By: HEALTH ASSESSMENT on 06-10-2024 Neutrophils (Bld) [#/Vol] 2.0 10*3/uL 2.0-7.7 [facility] Absolute nucleated red blood cell countOrdered By: HEALTH ASSESSMENT on 06-10-2024 Nucleated RBC (Bld) [#/Vol] 0.00 10*3/uL 0-5 [facility] Albumin to globulin ratioOrd ered By: HEALTH ASSESSMENT on 06-10-2024 Albumin/Globulin [Mass ratio] 1.0 {ratio} 0.9-2.4 [facility] Bilirubin Test strip Ql (U)O rdered By: HEALTH ASSESSMENT on 06-10-2024 Bilirubin Ql (U) Negative Negative [facility] Bilirubin directOrdered By: HEALTH ASSESSMENT on 06-10-2024 Bilirubin.direct [Mass/Vol] 0.09 mg/dL 0.00-0.30 [facility] Bilirubin, totalOrdered By: HEALTH ASSESSMENT on 06-10-2024 Bilirubin [Mass/Vol] 0.30 mg/dL 0.20-1.00 [facility] Comment on above: For patients on eltr ombopag therapy, use of Dimension [place] TBIL is not recommended. Blood urea nitrogen (BUN)/cr eatinine ratioOrdered By: HEALTH ASSESSMENT on 06-10-2024 Urea nitrogen/Creatinine [Mass ratio] 26.0 mg/mg High 10-20 [facility] CBC, Employeeon 06-10-2024 Absolute Lymph 2.33 X10 3/uL Normal 0.83-4.51 [facility] Comment on above: Performed By: #### L 100.0200, L500.2900, L400.0100 #### [facility] [address] [place], [address] Absolute Neut 2.0 X10 3/uL Normal 2.0-7.7 [facility] Comment on above: Performed By: #### L 100.0200, L500.2900, L400.0100 #### [facility] [address] [place], [address] Basophils/100 WBC (Bld) 1.2 % High 0-1 [facility] Comment on above: Performed By: #### L 100.0200, L500.2900, L400.0100 #### [facility] [address] [place], [address] Eosinophils/100 WBC (Bld) 3.5 % Normal 0-5 [facility] Comment on above: Performed By: #### L 100.0200, L500.2900, L400.0100 #### [facility] [address] [place], [address] Erythrocyte distribution width (RBC) [Ratio] 12.6 % Normal 11.6-14.6 [facility] Comment on above: Performed By: #### L 100.0200, L500.2900, L400.0100 #### [facility] [address] [place], [address] Hematocrit (Bld) [Volume fraction] 44.4 % Normal 37-47 [facility] Comment on above: Performed By: #### L 100.0200, L500.2900, L400.0100 #### [facility] [address] [place], [address] Hemoglobin (Bld) [Mass/Vol] 14.9 g/dL Normal 12.0-15.0 [facility] Comment on above: Performed By: #### L 100.0200, L500.2900, L400.0100 #### [facility] [address] [place], [address] Lymphocytes/100 WBC (Bld) 45.7 % High 19-41 [facility] Comment on above: Performed By: #### L 100.0200, L500.2900, L400.0100 #### [facility] [address] [place], [address] MCH (RBC) [Entitic mass] 29.7 pg Normal 27.0-32.0 [facility] Comment on above: Performed By: #### L 100.0200, L500.2900, L400.0100 #### [facility] [address] [place], [address] MCHC (RBC) [Mass/Vol] 33.6 g/dL Normal 32-36 [facility] Comment on above: Performed By: #### L 100.0200, L500.2900, L400.0100 #### [facility] [address] [place], [address] MCV (RBC) [Entitic vol] 88.6 fL Normal 81-99 [facility] Comment on above: Performed By: #### L 100.0200, L500.2900, L400.0100 #### [facility] [address] [place], [address] Monocytes/100 WBC (Bld) 9.4 % Normal 0-10 [facility] Comment on above: Performed By: #### L 100.0200, L500.2900, L400.0100 #### [facility] [address] [place], [address] Neutrophils/100 WBC (Bld) 40.0 % Low 47-70 [facility] Comment on above: Performed By: #### L 100.0200, L500.2900, L400.0100 #### [facility] [address] [place], [address] NRBC # 0.00 10 3/uL Normal 0-5 [facility] Comment on above: Performed By: #### L 100.0200, L500.2900, L400.0100 #### [facility] [address] [place], [address] Nucleated RBC (Bld) [#/Vol] 0 10*3/uL Normal 0-5 [facility] Comment on above: Performed By: #### L 100.0200, L500.2900, L400.0100 #### [facility] [address] [place], [address] Platelet mean volume (Bld) [Entitic vol] 9.6 fL Normal 6.2-12.0 [facility] Comment on above: Performed By: #### L 100.0200, L500.2900, L400.0100 #### [facility] [address] [place], [address] Platelets (Bld) [#/Vol] 317 10*3/uL Normal 150-450 [facility] Comment on above: Performed By: #### L 100.0200, L500.2900, L400.0100 #### [facility] [address] [place], [address] RBC (Bld) [#/Vol] 5.01 10*6/uL Normal 4.2-5.4 [facility] Comment on above: Performed By: #### L 100.0200, L500.2900, L400.0100 #### [facility] [address] [place], [address] RDW SD 41.1 fl Normal 35.1-43.9 [facility] Comment on above: Performed By: #### L 100.0200, L500.2900, L400.0100 #### [facility] [address] [place], [address] WBC (Bld) [#/Vol] 5.1 10*3/uL Normal 4.4-11.0 [facility] Comment on above: Performed By: #### L 100.0200, L500.2900, L400.0100 #### [facility] [address] [place], [address] Carbon dioxide measurementOr dered By: HEALTH ASSESSMENT on 06-10-2024 CO2 [Moles/Vol] 28.0 mmol/L 21.0-32.0 [facility] Chloride measurementOrdered By: HEALTH ASSESSMENT on 06-10-2024 Chloride [Moles/Vol] 103 mmol/L 98-107 [facility] Cholesterol/HDL ratioOrdered By: HEALTH ASSESSMENT on 06-10-2024 Cholesterol.total/Choles terol in HDL [Mass ratio] 3.00 {ratio} [facility] Employee Profileon Albumin [Mass/Vol] 3.8 g/dL Normal 3.2-5.0 [facility] Comment on above: Performed By: #### L 100.0200, L500.2900, L400.0100 #### [facility] [address] [place], [address] Albumin/Globulin [Mass ratio] 1.0 {ratio} Normal 0.9-2.4 [facility] Comment on above: Performed By: #### L 100.0200, L500.2900, L400.0100 #### [facility] [address] [place], [address] ALK P 70 U/L Normal 45-117 [facility] Comment on above: Performed By: #### L 100.0200, L500.2900, L400.0100 #### [facility] [address] [place], [address] ALT [Catalytic activity/Vol] 30 U/L Normal 13-56 [facility] Comment on above: Performed By: #### L 100.0200, L500.2900, L400.0100 #### [facility] [address] [place], [address] AST [Catalytic activity/Vol] 46 U/L High 15-37 [facility] Comment on above: Performed By: #### L 100.0200, L500.2900, L400.0100 #### [facility] [address] [place], [address] Bilirubin [Mass/Vol] 0.30 mg/dL Normal 0.20-1.00 [facility] Comment on above: Result Comment: For patients on eltrombopag therapy, use of Dimension [place] TBIL is not recommended. Performed By: #### L 100.0200, L500.2900, L400.0100 #### [facility] [address] [place], [address] Bilirubin.direct [Mass/Vol] 0.09 mg/dL Normal 0.00-0.30 [facility] Comment on above: Performed By: #### L 100.0200, L500.2900, L400.0100 #### [facility] [address] [place], [address] BUN/CRE 26.0 RATIO High 10-20 [facility] Comment on above: Performed By: #### L 100.0200, L500.2900, L400.0100 #### [facility] [address] [place], [address] CA,Total 9.2 mg/dL Normal 8.5-10.1 [facility] Comment on above: Performed By: #### L 100.0200, L500.2900, L400.0100 #### [facility] [address] [place], [address] Chloride [Moles/Vol] 103 mmol/L Normal 98-107 [facility] Comment on above: Performed By: #### L 100.0200, L500.2900, L400.0100 #### [facility] [address] [place], [address] CHOL:HDL 3.00 Normal [facility] Comment on above: Performed By: #### L 100.0200, L500.2900, L400.0100 #### [facility] [address] [place], [address] Cholesterol [Mass/Vol] 195 mg/dL Normal 200 [facility] Comment on above: Result Comment: <200 mg/dL Desirable 200-240 mg/dL Borderline >240 mg/dL High Risk Performed By: #### L 100.0200, L500.2900, L400.0100 #### [facility] [address] [place], [address] Cholesterol in HDL [Mass/Vol] 64 mg/dL Normal [facility] Comment on above: Result Comment: The drugs N-Acetylcysteine and Metamizole may falsely depress this assay. Reference Range HDL <40 mg/dL Low HDL Cholesterol HDL >or= 60 mg/dL High HDL Cholesterol Performed By: #### L 100.0200, L500.2900, L400.0100 #### [facility] [address] [place], [address] Cholesterol in LDL [Mass/Vol] 112 mg/dL Normal 0-130 [facility] Comment on above: Performed By: #### L 100.0200, L500.2900, L400.0100 #### [facility] [address] [place], [address] Cholesterol in VLDL [Mass/Vol] 19 mg/dL Normal 5-40 [facility] Comment on above: Performed By: #### L 100.0200, L500.2900, L400.0100 #### [facility] [address] [place], [address] CO2 [Moles/Vol] 28.0 mmol/L Normal 21.0-32.0 [facility] Comment on above: Performed By: #### L 100.0200, L500.2900, L400.0100 #### [facility] [address] [place], [address] Creatinine [Mass/Vol] 0.77 mg/dL Normal 0.55-1.02 [facility] Comment on above: Result Comment: The validity of the calculated GFR GFRAA in patients over 70 years has not been determined. Clinical correlation is essential. Performed By: #### L 100.0200, L500.2900, L400.0100 #### [facility] [address] [place], [address] EST GFR - AA 101 mL/min Normal >60 [facility] Comment on above: Result Comment: Afri can Sudanese GFR Calc Performed By: #### L 100.0200, L500.2900, L400.0100 #### [facility] [address] [place], [address] GAP 7 Normal 5-15 [facility] Comment on above: Performed By: #### L 100.0200, L500.2900, L400.0100 #### [facility] [address] [place], [address] GFR/1.73 sq M.predicted among non-blacks MDRD (S/P/Bld) [Vol rate/Area] 84 mL/min/{1.73_m2} Normal >60 [facility] Comment on above: Result Comment: Non- GFR Calc Performed By: #### L 100.0200, L500.2900, L400.0100 #### [facility] [address] [place], [address] Globulin (S) [Mass/Vol] 3.8 g/dL Normal 2.2-4.2 [facility] Comment on above: Performed By: #### L 100.0200, L500.2900, L400.0100 #### [facility] [address] [place], [address] Glucose [Mass/Vol] 87 mg/dL Normal 74-106 [facility] Comment on above: Performed By: #### L 100.0200, L500.2900, L400.0100 #### [facility] [address] [place], [address] LDH 141 U/L Normal 84-246 [facility] Comment on above: Performed By: #### L 100.0200, L500.2900, L400.0100 #### [facility] [address] [place], [address] Phosphate [Mass/Vol] 3.8 mg/dL Normal 2.5-4.9 [facility] Comment on above: Performed By: #### L 100.0200, L500.2900, L400.0100 #### [facility] [address] [place], [address] Potassium [Moles/Vol] 4.1 mmol/L Normal 3.5-5.1 [facility] Comment on above: Performed By: #### L 100.0200, L500.2900, L400.0100 #### [facility] [address] [place], [address] Sodium [Moles/Vol] 138 mmol/L Normal 136-145 [facility] Comment on above: Performed By: #### L 100.0200, L500.2900, L400.0100 #### [facility] [address] [place], [address] T PROT 7.6 g/dL Normal 6.4-8.2 [facility] Comment on above: Performed By: #### L 100.0200, L500.2900, L400.0100 #### [facility] [address] [place], [address] Triglyceride [Mass/Vol] 96 mg/dL Normal [facility] Comment on above: Result Comment: The drugs N-Acetylcysteine and Metamizole may falsely depress this assay. Serum Triglycerides Reference Interval Normal <150 mg/dL Borderline high 150 - 199 mg/dL High 200 - 499 mg/dL Very High > or = 500 mg/dL Performed By: #### L 100.0200, L500.2900, L400.0100 #### [facility] [address] [place], [address] Urea nitrogen [Mass/Vol] 20 mg/dL High 7-18 [facility] Comment on above: Performed By: #### L 100.0200, L500.2900, L400.0100 #### [facility] [address] [place], [address] URIC 3.3 mg/dL Normal 2.6-6.0 [facility] Comment on above: Result Comment: The drugs N-Acetylcysteine and Metamizole may falsely depress this assay. Performed By: #### L 100.0200, L500.2900, L400.0100 #### [facility] [address] [place], [address] Erythrocyte distribution wid th (RBC) [Ratio]Ordered By: HEALTH ASSESSMENT on 06-10-2024 Erythrocyte distribution width (RBC) [Entitic vol] 41.1 fL 35.1-43.9 [facility] Erythrocyte distribution wid th ratioOrdered By: HEALTH ASSESSMENT on 06-10-2024 Erythrocyte distribution width (RBC) [Ratio] 12.6 % 11.6-14.6 [facility] Estimated glomerular filtrat ion rate (GFR) AmericanOrdered By: HEALTH ASSESSMENT on 06-10-2024 Estimated GFR (MDRD) Amer 101 mL/min >60 [facility] Comment on above: GFR Calc Glomerular filtration rate ( GFR) estimationOrdered By: HEALTH ASSESSMENT on 06-10-2024 Estimated GFR (MDRD) Non-Af Amer 84 mL/min >60 [facility] Comment on above: Non- GFR Calc Glucose Ql (U)Ordered By: HE ALTH ASSESSMENT on 06-10-2024 Urine Glucose (UA) Normal mg/dl Normal [facility] Glucose measurementOrdered B y: HEALTH ASSESSMENT on 06-10-2024 Glucose [Mass/Vol] 87 mg/dL 74-106 [facility] Hematocrit Auto (Bld) [Volum e fraction]Ordered By: HEALTH ASSESSMENT on 06-10-2024 Hematocrit (Bld) [Volume fraction] 44.4 % 37-47 [facility] Hemoglobin measurementOrdere d By: HEALTH ASSESSMENT on 06-10-2024 Hemoglobin (Bld) [Mass/Vol] 14.9 g/dL 12.0-15.0 [facility] High density lipoprotein (HD L) measurementOrdered By: HEALTH ASSESSMENT on 06-10-2024 Cholesterol in HDL [Mass/Vol] 64 mg/dL >40 [facility] Comment on above: The drugs N-Acetylcy steine and Metamizole may falsely depress this assay. Reference Range HDL <40 mg/dL Low HDL Cholesterol HDL >or= 60 mg/dL High HDL Cholesterol Ketones Test strip Ql (U)Ord ered By: HEALTH ASSESSMENT on 06-10-2024 Ketones Ql (U) Negative Negative [facility] - Chemistry and C hemistry - challengeOrdered By: HEALTH ASSESSMENT on 06-10-2024 AST [Catalytic activity/Vol] 46 U/L High 15-37 [facility] Lactate dehydrogenase (LDH) measurementOrdered By: HEALTH ASSESSMENT on 06-10-2024 LDH [Catalytic activity/Vol] 141 U/L 84-246 [facility] Low density lipoprotein (LDL ) cholesterol measurementOrdered By: HEALTH ASSESSMENT on 06-10-2024 Cholesterol in LDL [Mass/Vol] 112 mg/dL 0-130 [facility] Lymphocytes Auto (Unsp spec) [#/Vol]Ordered By: HEALTH ASSESSMENT on 06-10-2024 Lymphocytes (Bld) [#/Vol] 2.33 10*3/uL 0.83-4.51 [facility] MCV (mean corpuscular volume ) determinationOrdered By: HEALTH ASSESSMENT on 06-10-2024 MCV (RBC) [Entitic vol] 88.6 fL 81-99 [facility] Mean corpuscular hemoglobin (MCH) determinationOrdered By: HEALTH ASSESSMENT on 06-10-2024 MCH (RBC) [Entitic mass] 29.7 pg 27.0-32.0 [facility] Mean corpuscular hemoglobin concentration (MCHC) determinationOrdered By: HEALTH ASSESSMENT on 06-10-2024 MCHC (RBC) [Mass/Vol] 33.6 g/dL 32-36 [facility] Mean platelet volume determi nationOrdered By: HEALTH ASSESSMENT on 06-10-2024 Platelet mean volume (Bld) [Entitic vol] 9.6 fL 6.2-12.0 [facility] Neutrophil percentageOrdered By: HEALTH ASSESSMENT on 06-10-2024 Neutrophils/100 WBC (Bld) 40.0 % Low 47-70 [facility] Nitrite Test strip Ql (U)Ord ered By: HEALTH ASSESSMENT on 06-10-2024 Nitrite Ql (U) Negative Negative [facility] Nucleated red blood cell per centageOrdered By: HEALTH ASSESSMENT on 06-10-2024 Nucleated RBC/100 WBC (Bld) [Ratio] 0 % 0-5 [facility] Phosphorus measurementOrdere d By: HEALTH ASSESSMENT on 06-10-2024 Phosphorus Level 3.8 mg/dL 2.5-4.9 [facility] Platelet countOrdered By: HE ALTH ASSESSMENT on 06-10-2024 Platelets (Bld) [#/Vol] 317 10*3/uL 150-450 [facility] Potassium measurementOrdered By: HEALTH ASSESSMENT on 06-10-2024 Potassium [Moles/Vol] 4.1 mmol/L 3.5-5.1 [facility] Protein Test strip Ql (U)Ord ered By: HEALTH ASSESSMENT on 06-10-2024 Protein Ql (U) 15 mg/dl High Negative [facility] RBC Auto (Bld) [#/Vol]Ordere d By: HEALTH ASSESSMENT on 06-10-2024 RBC (Bld) [#/Vol] 5.01 10*6/uL 4.2-5.4 [facility] Serum anion gap measurementO rdered By: HEALTH ASSESSMENT on 06-10-2024 Anion gap [Moles/Vol] 7 mmol/L 5-15 [facility] Serum globulin measurementOr dered By: HEALTH ASSESSMENT on 06-10-2024 Globulin (S) [Mass/Vol] 3.8 g/dL 2.2-4.2 [facility] Serum or plasma alanine lay otransferase (ALT) measurementOrdered By: HEALTH ASSESSMENT on 06-10-2024 ALT [Catalytic activity/Vol] 30 U/L 13-56 [facility] Serum or plasma albumin chin urement (mass/volume)Ordered By: HEALTH ASSESSMENT on 06-10-2024 Albumin [Mass/Vol] 3.8 g/dL 3.2-5.0 [facility] Serum or plasma alkaline maria d sphatase measurementOrdered By: HEALTH ASSESSMENT on 06-10-2024 ALP [Catalytic activity/Vol] 70 U/L 45-117 [facility] Serum or plasma calcium chin urement (mass/volume)Ordered By: HEALTH ASSESSMENT on 06-10-2024 Calcium [Mass/Vol] 9.2 mg/dL 8.5-10.1 [facility] Serum or plasma cholesterol measurement (mass/volume)Ordered By: HEALTH ASSESSMENT on 06-10-2024 Cholesterol [Mass/Vol] 195 mg/dL <200 [facility] Comment on above: <200 mg/dL Desirable 200-240 mg/dL Borderline >240 mg/dL High Risk Serum or plasma creatinine m easurement (mass/volume)Ordered By: HEALTH ASSESSMENT on 06-10-2024 Creatinine [Mass/Vol] 0.77 mg/dL 0.55-1.02 [facility] Comment on above: The validity of the calculated GFR & GFRAA in patients over 70 years has not been determined. Clinical correlation is essential. Serum or plasma urea nitroge n measurement (mass/volume)Ordered By: HEALTH ASSESSMENT on 06-10-2024 Urea nitrogen [Mass/Vol] 20 mg/dL High 7-18 [facility] Serum or plasma uric acid me asurement (mass/volume)Ordered By: HEALTH ASSESSMENT on 06-10-2024 Urate [Mass/Vol] 3.3 mg/dL 2.6-6.0 [facility] Comment on above: The drugs N-Acetylcy steine and Metamizole may falsely depress this assay. Sodium levelOrdered By: HEAL ASSESSMENT on 06-10-2024 Sodium [Moles/Vol] 138 mmol/L 136-145 [facility] Total proteinOrdered By: HEA [facility] ASSESSMENT on 06-10-2024 Protein [Mass/Vol] 7.6 g/dL 6.4-8.2 [facility] Triglycerides measurementOrd ered By: HEALTH ASSESSMENT on 06-10-2024 Triglyceride [Mass/Vol] 96 mg/dL <199 [facility] Comment on above: The drugs N-Acetylcy steine and Metamizole may falsely depress this assay.Serum Triglycerides Reference Interval Normal <150 mg/dL Borderline high 150 - 199 mg/dL High 200 - 499 mg/dL Very High > or = 500 mg/dL Urinalysis, Employeeon 06-10 BILIRUBIN URINE Negative Normal Negative [facility] Comment on above: Order Comment: Urine , Random Performed By: #### L 100.0200, L500.2900, L400.0100 #### [facility] [address] [place], [address] Clarity (U) Clear Normal Clear [facility] Comment on above: Order Comment: Urine , Random Performed By: #### L 100.0200, L500.2900, L400.0100 #### [facility] [address] [place], [address] Color (U) Yellow Normal Yellow [facility] Comment on above: Order Comment: Urine , Random Performed By: #### L 100.0200, L500.2900, L400.0100 #### [facility] [address] [place], [address] GLUCOSE, UR Normal Normal Normal [facility] Comment on above: Order Comment: Urine , Random Performed By: #### L 100.0200, L500.2900, L400.0100 #### [facility] [address] [place], [address] KETONE UR Negative Normal Negative [facility] Comment on above: Order Comment: Urine , Random Performed By: #### L 100.0200, L500.2900, L400.0100 #### [facility] [address] [place], [address] LEUK ESTERASE Negative Normal Negative [facility] Comment on above: Order Comment: Urine , Random Performed By: #### L 100.0200, L500.2900, L400.0100 #### [facility] [address] [place], [address] Nitrite Ql (U) Negative Normal Negative [facility] Comment on above: Order Comment: Urine , Random Performed By: #### L 100.0200, L500.2900, L400.0100 #### [facility] [address] [place], [address] OCCULT BLOOD-UR 10 /ul Abnormal Negative [facility] Comment on above: Order Comment: Urine , Random Performed By: #### L 100.0200, L500.2900, L400.0100 #### [facility] [address] [place], [address] pH UR 6.0 Normal 5.0 - 8.0 [facility] Comment on above: Order Comment: Urine , Random Performed By: #### L 100.0200, L500.2900, L400.0100 #### [facility] [address] [place], [address] PROT DIPSTX 15 mg/dl Abnormal Negative [facility] Comment on above: Order Comment: Urine , Random Performed By: #### L 100.0200, L500.2900, L400.0100 #### [facility] [address] [place], [address] SP.GR. DIPSTX 1.020 Normal 1.002-1.030 [facility] Comment on above: Order Comment: Urine , Random Performed By: #### L 100.0200, L500.2900, L400.0100 #### [facility] [address] [place], [place], [id number] UROBILI Normal Normal Normal [facility] Comment on above: Order Comment: Urine , Random Performed By: #### L 100.0200, L500.2900, L400.0100 #### [facility] [address] [place], [address] Urine blood detectionOrdered By: HEALTH ASSESSMENT on 06-10-2024 Urine Occult Blood 10 /ul High Negative [facility] Urine clarityOrdered By: A [facility] ASSESSMENT on 06-10-2024 Clarity (U) Clear Clear [facility] Urine color determinationOrd ered By: HEALTH ASSESSMENT on 06-10-2024 Color (U) Yellow Yellow [facility] Urine leukocyte esterase det ection by dipstickOrdered By: HEALTH ASSESSMENT on 06-10-2024 Leukocyte esterase Test strip Ql (U) Negative Negative [facility] Urine pHOrdered By: HEALTH A SSESSMENT on 06-10-2024 pH (U) 6.0 [pH] 5.0 - 8.0 [facility] Urine specific gravity measu rementOrdered By: HEALTH ASSESSMENT on 06-10-2024 Specific gravity (U) [Rel density] 1.020 1.002-1.030 [facility] Urobilinogen Ql (U)Ordered B y: HEALTH ASSESSMENT on 06-10-2024 Urine Urobilinogen Normal mg/dl Normal [facility] Very low density lipoprotein (VLDL) cholesterol measurementOrdered By: HEALTH ASSESSMENT on 06-10-2024 VLDL Cholesterol 19 mg/dL 5-40 [facility] White blood cell (WBC) count Ordered By: HEALTH ASSESSMENT on 06-10-2024 WBC (Bld) [#/Vol] 5.1 10*3/uL 4.4-11.0 [facility] Breast Limited Unilateralon 12-22-2023 Breast Limited Unilateral [facility] [address] [place], [place] [address] Breast Limited Unilateral MR#: [id number] Acct: [id number] Name: BERNARDA HENDRICKS Rep #: [id number] : 1970 F 52 From: Adam choe MD PCP: Dr. Kristen Vigil DO Status: REG CLI Study: Breast Limited Unilateral Date of Exam: Exam# [id number] Ordering Dr: Minerva Bird [id number] STUDY: ULTRASOUND BREAST - LEFT REASON FOR EXAM: Female, 53 years old. Palpable lump left breast. TECHNIQUE: Axial and longitudinal images of the LEFT breast were performed with a high resolution ultrasound transducer. # OF IMAGES: 18 COMPARISON: Comparison is made with prior mammogram done earlier today. FINDINGS: LEFT Breast: The upper outer quadrant of the left breast was examined. There is dense fibroglandular tissue. No solid or cystic mass is seen. US/Breast Limited Unilateral IMPRESSION: No sonographic abnormality is seen. ASSESSMENT CATEGORY: BIRADS Category 2: Benign. A letter regarding these results will be sent to the patient by the facility within 30 days. Electronically Signed: Adam Vasques MD at 8:18 EDT , CC: Dr. Kristen Vigil DO; Dr. Minerva Bird MD Grinder Operator Tool: Signed Normal [facility] DIAG MAMM W/CAD, [facility] DIAG MAMM W/CAD, [facility] [address] [place] [address] DIAG MAMM W/CAD, BILAT MR#: [id number] Acct: [id number] Name: BERNARDA HENDRICKS Rep #: [id number] : 1970 F 52 From: Adam choe MD PCP: Dr. Kristen Vigil, DO Status: [facility] Study: DIAG MAMM W/CAD, BILAT Date of Exam: 12/22/23 Exam# [id number] Ordering Dr: Minerva Bird [id number] MAMMOGRAPHY - BILATERAL DIAGNOSTIC REASON FOR EXAM: Female, 53 years old. Left palpable lump. This varies with menses. PERTINENT HISTORY: Non-contributory. TECHNIQUE: Digital bilateral breast tanna (3D mammographic acquisition) in the CC and MLO projections. 2-D mediolateral oblique (MLO) and craniocaudad (CC) views of both breasts were obtained. CAD: Full Field Digital Mammography with Computer Added Detection was performed. COMPARISON: Comparison is made with prior study dated December 28, 2022 and December 16, 2020. FINDINGS: Breast Composition: The breasts are extremely dense, which lowers the sensitivity of mammography. There are no dominant masses or suspicious calcifications. No other significant abnormalities are identified. There has been no significant change since the prior study. BI/DIAG MAMM W/CAD, BILAT IMPRESSION: Stable bilateral diagnostic mammogram. With the patient''s history of a palpable lump in the upper outer quadrant of the left breast, correlation with ultrasound is recommended. ASSESSMENT CATEGORY: BIRADS Category 0: Incomplete. Need additional imaging evaluation. A letter regarding these results will be sent to the patient by the facility within 30 days. Approximately 10% of breast cancers are not detected by mammography. A normal mammogram should not delay biopsy of a clinically suspicious abnormality. Electronically Signed: Adam Vasques MD at 8:17 EDT , CC: Dr. Kristen Vigil DO; Dr. Minerva Bird MD Grinder Operator Tool: Signed Normal [facility] Absolute lymphocyte countOrd ered By: [facility] on 07-04-2023 Lymphocytes Auto (Unsp spec) [#/Vol] 2.13 10*3/uL 0.83-4.51 [facility] Automated lymphocyte count a s percentage of total leukocytesOrdered By: [facility] on 07-04-2023 Lymphocytes/100 WBC Auto (Unsp spec) 30.6 % 19-41 [facility] Basophil percentageOrdered B y: [facility] on 07-04-2023 Basophil percentage 0 SEEN /hpf 0-5 [facility] Basophils/100 WBC (Bld) 0.6 % 0-1 [facility] Chloride [Moles/Vol] 106 mmol/L 98-107 [facility] Eosinophils/100 WBC (Bld) 1.0 % 0-5 [facility] Glucose [Mass/Vol] 101 mg/dL 74-106 [facility] Comment on above: Fasting Glucose resu lt from 100 to 125 mg/dL suggests IMPAIRED HOMEOSTASIS per A.D.A. criteria. Hemoglobin (Bld) [Mass/Vol] 14.4 g/dL 12.0-15.0 [facility] Monocytes/100 WBC (Bld) 8.8 % 0-10 [facility] Neutrophils (Bld) [#/Vol] 4.1 10*3/uL 2.0-7.7 [facility] Neutrophils/100 WBC (Bld) 58.6 % 47-70 [facility] Potassium [Moles/Vol] 3.6 mmol/L 3.5-5.1 [facility] Sodium [Moles/Vol] 140 mmol/L 136-145 [facility] WBC (Bld) [#/Vol] 7.0 10*3/uL 4.4-11.0 [facility] Bilirubin Test strip Ql (U)O rdered By: Kermit Barfield on 07-04-2023 Bilirubin Ql (U) Negative Negative [facility] Determination of erythrocyte mean corpuscular volume (MCV)Ordered By: Kermit Barfield on 07-04-2023 MCV (RBC) [Entitic vol] 87.0 fL 81-99 [facility] Erythrocyte distribution wid th ratioOrdered By: Kermitnew Barfield on 07-04-2023 Erythrocyte distribution width (RBC) [Ratio] 12.3 % 11.6-14.6 [facility] Erythrocyte distribution wid th standard deviationOrdered By: Kermitnew Barfield on 07-04-2023 Erythrocyte distribution width (RBC) [Entitic vol] 39.2 fL 35.1-43.9 [facility] Hematocrit Auto (Bld) [Volum e fraction]Ordered By: Kermitnew Barfield on 07-04-2023 Hematocrit (Bld) [Volume fraction] 42.7 % 37-47 [facility] Immature granulocytes/100 WB C Auto (Bld)Ordered By: Kermitnew Barfield on 07-04-2023 Immature granulocytes/100 WBC (Bld) 0.400 % 0.0-0.9 [facility] Comment on above: IG% - Immature Granu locytes (promyelocytes, myelocytes and metamyelocytes) > 1% indicates that a LEFT SHIFT is Present. Ketones Test strip Ql (U)Ord ered By: Kermit Barfield on 07-04-2023 Ketones Ql (U) Negative Negative [facility] - Chemistry and C hemistry - challengeOrdered By: Kermitnew Barfield on 07-04-2023 CO2 [Moles/Vol] 26.0 mmol/L 21.0-32.0 [facility] Urea nitrogen/Creatinine [Mass ratio] 19.8 mg/mg 10-20 [facility] - Hematology and Cell countsOrdered By: Kermitnew Barfield on 07-04-2023 MCH (RBC) [Entitic mass] 29.3 pg 27.0-32.0 [facility] MCHC (RBC) [Mass/Vol] 33.7 g/dL 32-36 [facility] Nucleated RBC/100 WBC (Bld) [Ratio] 0 % 0-5 [facility] Platelet mean volume (Bld) [Entitic vol] 9.4 fL 6.2-12.0 [facility] Platelets (Bld) [#/Vol] 263 10*3/uL 150-450 [facility] Mucus LM Ql (Urine sed)Order ed By: Kermit Barfield on 07-04-2023 Mucus Ql (Urine sed) 0 SEEN /hpf [facility] Nitrite Test strip Ql (U)Ord ered By: Kermit Barfield on 07-04-2023 Nitrite Ql (U) Negative Negative [facility] No Panel InformationOrdered By: Kermit Barfield on 07-04-2023 Estimated Creatinine Clearance Calc 61.21 ml/min [facility] Estimated GFR (MDRD) Amer 90 mL/min >60 [facility] Comment on above: GFR Calc Estimated GFR (MDRD) Non-Af Amer 74 mL/min >60 [facility] Comment on above: Non- GFR Calc Urine RBC 0 SEEN /hpf 0-5 [facility] Protein Test strip Ql (U)Ord ered By: Kermit Barfield on 07-04-2023 Protein Ql (U) Negative Negative [facility] RBC Auto (Bld) [#/Vol]Ordere d By: Kermit Barfield on 07-04-2023 RBC (Bld) [#/Vol] 4.91 10*6/uL 4.2-5.4 [facility] Serum or plasma calcium chin urement (mass/volume)Ordered By: Kermit Barfield on 07-04-2023 Calcium [Mass/Vol] 9.2 mg/dL 8.5-10.1 [facility] Serum or plasma creatinine m easurement (mass/volume)Ordered By: Kermit Barfield on 07-04-2023 Creatinine [Mass/Vol] 0.86 mg/dL 0.55-1.02 [facility] Comment on above: The validity of the calculated GFR & GFRAA in patients over 70 years has not been determined. Clinical correlation is essential. Serum or plasma urea nitroge n measurement (mass/volume)Ordered By: Kermit Barfield on 07-04-2023 Urea nitrogen [Mass/Vol] 17 mg/dL 7-18 [facility] Squamous epithelial cells de tection in urine sediment by light microscopyOrdered By: Kermit Barfeild on 07-04-2023 Epithelial cells.squamous LM Ql (Urine sed) 0 SEEN /hpf 5-10 [facility] Thin prep Papanicolaou smear with manual screeningOrdered By: Kermit Barfield on 07-04-2023 Thin prep Papanicolaou smear with manual screening 8 5-15 [facility] Urine blood detectionOrdered By: Kermit Barfield on 07-04-2023 RBC Ql (U) Negative Negative [facility] Urine clarityOrdered By: Kermit Barfield on 07-04-2023 Clarity (U) Clear Clear [facility] Urine color determinationOrd ered By: Kermit Barfield on 07-04-2023 Color (U) Yellow Yellow [facility] Urine glucose detectionOrder ed By: Kermit Barfield on 07-04-2023 Glucose Ql (U) Normal mg/dl Normal [facility] Urine leukocyte esterase det ection by dipstickOrdered By: Kermit Barfield on 07-04-2023 Leukocyte esterase Test strip Ql (U) Negative Negative [facility] Urine pHOrdered By: Kermit wolff on 07-04-2023 pH (U) 7.0 [pH] 5.0 - 8.0 [facility] Urine sediment bacteria coun t by microscopy (number/high power field)Ordered By: Kermit Barfield on 07-04-2023 Bacteria LM.HPF (Urine sed) [#/Area] 0 /[HPF] None Seen [facility] Urine specific gravity measu rementOrdered By: Kermit Barfield on 07-04-2023 Specific gravity (U) [Rel density] 1.010 1.002-1.030 [facility] Urine urobilinogen measureme ntOrdered By: Kermit Barfield on 07-04-2023 Urobilinogen Ql (U) Normal mg/dl Normal [facility] - Microbiology an d Antimicrobial susceptibilityon 04-04-2023 SARS-CoV-2 (COVID-19) RNA DARIEN+probe Ql (Unsp spec) Not detected [facility] No Panel Informationon 04-04 POC Nasal Swab Influenza A,B Not detected [facility] POC Nasal Swab RSV Detected [facility] Microbiology: Culture, R/O S trep Aon 11-27-2016 CUSTREPA . [facility] Work Phone: GE use only - for [employer] import when terms are not otherwise specified . Invalid Interpretation Code [facility] Work Phone: Microbiology: (P) Culture, R /O Strep Aon 11-26-2016 GE use only - for [employer] import when terms are not otherwise specified . Invalid Interpretation Code [facility] Work Phone: Office Visit: UC: Irma Ramirez lucas 11-25-2016 Documentation of current medications (procedure) Done Invalid Interpretation Code [facility] Work Phone: Fall risk assessment No [facility] Work Phone: Protein mass conc Done [facility] Work Phone: Tobacco smoking status NHIS Never [facility] Work Phone: Tobacco smoking status NHIS Never smoker [facility] Work Phone: Tobacco use [facility] Never smoker Invalid Interpretation Code [facility] Work Phone: Vital Signs Date Time Vital Sign Value Performing Clinician Jac shields 12-19-2024 08:59-0400 Body height 157.48 cm Belem Desir NP-C Work Phone: [facility] 12-19-2024 08:59-0400 Body mass index (BMI) [Ratio] 25.5 kg/m2 Belem Desir NP-C Work Phone: [facility] 12-19-2024 08:59-0400 Body weight 63.3 kg Belem Desir NP-C Work Phone: [facility] 12-19-2024 08:59-0400 Diastolic blood pressure 77 mm[Hg] Belem Desir NP-C Work Phone: [facility] 12-19-2024 08:59-0400 Systolic blood pressure 138 mm[Hg] Belem Desir NP-C Work Phone: [facility] 07-04-2023 20:27-0400 Body temperature 97.2 [degF] Dr. Dave Cortez Work Phone: [facility] 07-04-2023 20:27-0400 Diastolic blood pressure 74 mm[Hg] Dr. Dave Cortez Work Phone: [facility] 07-04-2023 20:27-0400 Heart rate 80 /min Dr. Dave Cortez Work Phone: [facility] 07-04-2023 20:27-0400 Respiratory rate 18 /min Dr. Dave Cortez Work Phone: [facility] 07-04-2023 20:27-0400 SaO2% (BldA) [Mass fraction] 100 % Dr. Dave Cortez Work Phone: [facility] 07-04-2023 20:27-0400 Systolic blood pressure 118 mm[Hg] Dr. Dave Cortez Work Phone: [facility] 07-04-2023 16:56-0400 Body height 157.[address] Dave Cortez Work Phone: [facility] 07-04-2023 16:56-0400 Body mass index (BMI) [Ratio] 24 kg/m2 Dr. Dave Cortez Work Phone: [facility] 07-04-2023 16:56-0400 Body weight 59.[address] Dave Cortez Work Phone: [facility] 04-04-2023 09:23-0500 Body mass index (BMI) [Ratio] 24.7 kg/m2 Dr. Dave Cortez Work Phone: [facility] 04-04-2023 09:23-0500 Body temperature 98.6 [degF] Dr. Dave Cortez Work Phone: [facility] 04-04-2023 09:23-0500 Body weight 61.[address] Dave Cortez Work Phone: [facility] 04-04-2023 09:23-0500 Diastolic blood pressure 85 mm[Hg] Dr. Dave Cortez Work Phone: [facility] 04-04-2023 09:23-0500 Heart rate 76 /min Dr. Dave Cortez Work Phone: [facility] 04-04-2023 09:23-0500 Respiratory rate 16 /min Dr. Dave Cortez Work Phone: [facility] 04-04-2023 09:23-0500 SaO2% (BldA) [Mass fraction] 97 % Dr. Dave Cortez Work Phone: [facility] 04-04-2023 09:23-0500 Systolic blood pressure 143 mm[Hg] Dr. Dave Cortez Work Phone: [facility] 12-09-2022 13:00-0400 Body height 157.[address] Dave Cortez Work Phone: [facility] 12-09-2022 12:58-0400 Body mass index (BMI) [Ratio] 24.5 kg/m2 Dr. Dave Cortez Work Phone: [facility] 12-09-2022 12:58-0400 Body weight [address] Dave Cortez Work Phone: [facility] 12-09-2022 12:58-0400 Diastolic blood pressure 72 mm[Hg] Dr. Dave Cortez Work Phone: [facility] 12-09-2022 12:58-0400 Systolic blood pressure 122 mm[Hg] Dr. Dave Cortez Work Phone: [facility] 06-21-2022 14:29-0500 Body height 157.[address] Dave Cortez Work Phone: [facility] 06-21-2022 14:29-0500 Body mass index (BMI) [Ratio] 24.3 kg/m2 Dr. Dave Cortez Work Phone: [facility] 06-21-2022 14:29-0500 Body weight 60.[address] Dave Cortez Work Phone: [facility] 11-25-2016 07:00-0400 Body Temperature 97.9 [degF] Janice Lawler [facility] Work Phone: 11-25-2016 07:00-0400 BP Diastolic 60 mm[Hg] Janice Lawler [facility] Work Phone: 11-25-2016 07:00-0400 BP Systolic 114 mm[Hg] Janice Lawler [facility] Work Phone: 11-25-2016 07:00-0400 Pulse (Heart Rate) 81 /min Janice Lawler [facility] Work Phone: 11-25-2016 07:00-0400 Respiratory Rate 16 /min Janice Lawler [facility] Work Phone: 11-25-2016 07:00-0400 Weight 56.7 kg Janice Lawler [facility] Work Phone: Encounters Encounter Date Encounter Type Care Provider Facility Start: 12-19-2024 End: 12-19-[address] Minerva Bird MD -[facility] Work Phone: Start: 12-19-2024 End: 12-19-2024 ambulatory Belem Desir [facility] Work Phone: -[facility] Start: 10-15-2024 Non-patient / Non-visit Dr. Darcy Ugarte MD -[facility] Work Phone: Start: 09-04-2024 ambulatory Vincent North ty:[facility] Start: 09-04-2024 Non-patient / Non-visit Dr. Day Olsen MD -[facility]- Start: 09-04-2024 End: 09-04-[address] Vincent Pimentel DO -Pulmonary Services/Neurology Work Phone: Start: 09-03-2024 End: 09-04-2024 ambulatory Vincent Pimentel Facility:[facility] Start: 09-03-[address] Errol Pimentel DO -Occupational Therapy Work Phone: Start: 07-15-2024 ambulatory Belemvimal Desir Fa cility:[facility] Start: 07-15-2024 Non-patient / Non-visit Dr. 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 Start: 06-10-2024 ambulatory Health Risk Assessment Facility:[facility] Start: 12-22-2023 End: 12-22-2023 [facility] Start: 12-20-2023 End: 12-20-2023 ambulatory SELF Facility:[facility] Start: 12-20-2023 End: 12-20-2023 Patient encounter procedure Linda Rea OD Work Phone: Optometry Comment on above: Myopia, bilateral (P rimary Dx); Regular astigmatism of both eyes; Presbyopia; Degenerative retinal drusen of both eyes Start: 07-04-2023 End: 07-04-2023 Emergency department patient visit Dr. Dave Cortez Work Phone: [facility]-Emergency Department Work Phone: Start: 04-04-2023 End: 04-04-[address] Dave Cortez Work Phone: [facility] Work Phone: Start: 12-28-2022 End: 12-28-[address] Dave Cortez Work Phone: [facility] Work Phone: Start: 12-28-2022 End: 12-28-[address] Dave Cortez Work Phone: [facility]-Outpatient Breast Imaging Work Phone: Start: 12-15-2022 End: 12-15-2022 Patient encounter procedure Linda Rea OD Work Phone: Optometry Comment on above: Myopia, bilateral (P rimary Dx); Regular astigmatism of both eyes; Presbyopia; Degenerative retinal drusen of both eyes Start: 12-09-2022 End: 12-09-[address] Dave Cortez Work Phone: [facility] Work Phone: Start: 10-13-2022 End: 10-13-[address] Dave Cortez Work Phone: [facility] Work Phone: Start: 07-08-2022 End: 07-08-[address] Dave Cortez Work Phone: [facility] Work Phone: Start: 07-08-2022 End: 07-08-[address] Dave Cortez Work Phone: [facility] Start: 06-21-2022 End: 06-21-[address] Dave Cortez Work Phone: [facility] Start: 12-02-2021 End: 12-02-2021 Patient encounter procedure Linda Rea OD Work Phone: Optometry Comment on above: Myopia, bilateral (P rimary Dx); Regular astigmatism of both eyes; Presbyopia Procedures Date Procedure Procedure Detail Performing Clinician Start: 07-12-2024 CT angiography of co ronary arteries No Primary Care Physician Start: 12-28-2022 Screening mammography Robert Cortez Work Phone: Start: 07-08-[address] Dave Cortez Work Phone: Start: 10-12-2018 Colonoscopy Linda Goldstein rider II, OD Work Phone: Start: 11-25-2016 End: 11-25-2016 Iaadiadoo streptococcus group a Shay NIELSON Work Phone: Start: 11-25-2016 End: 11-25-2016 Rapid strep test Shay NEILSON Work Phone: Plan of Treatment Date Care Activity Detail Author Start: 12-17-2023 Covid-19 Vaccine ( season) Covid-19 Vaccine () [facility] Start: 12-17-2023 Influenza vaccination Influenza Vaccine (#1) [facility] Start: 07-04-2023 [facility] Start: 12-16-2022 Influenza vaccination INFLUENZA (#1) [facility] Start: 04-17-2022 DEPRESSION ASSESSMENT DEPRESSION ASSESSMENT [facility] Start: 12-25-2021 SHINGRIX VACCINE (1 of 2) SHINGRIX VACCINE (1 of 2) [facility] Start: 12-16-2021 Influenza vaccination INFLUENZA (#1) [facility] Start: 10-15-2020 COVID-19 VACCINE (3 - Booster for Moderna series) COVID-19 VACCINE (3 - Booster for Moderna series) [facility] Start: 07-13-2020 COVID-19 VACCINE (3 - Moderna series) COVID-19 VACCINE (3 - Moderna series) [facility] Start: 10-13-2019 Colonoscopy COLONOSCOPY [facility] Start: 10-13-2019 COLORECTAL CANCER SCREENING COLORECTAL CANCER SCREENING [facility] Start: 12-25-2016 COLOGUARD (FIT-DNA) COLOGUARD (FIT-DNA) [facility] Start: 12-25-2016 Colonoscopy COLONOSCOPY [facility] Start: 12-25-2016 COLORECTAL CANCER SCREENING COLORECTAL CANCER SCREENING [facility] Start: 12-25-[address] COLONOGRAPHY [facility] Start: 12-25-2016 DIABETES SCREEN DIABETES SCREEN [facility] Start: 12-25-2016 Diabetes Screening Diabetes Screening [facility] Start: 12-25-2016 FECAL OCCULT BLOOD FECAL OCCULT BLOOD [facility] Start: 12-25-2016 Lipid panel Lipid Screening [facility] Start: 12-25-2016 LIPID SCREEN LIPID SCREEN [facility] Start: 12-25-2016 Screening for malignant neoplasm of colon [facility] Start: 12-25-2016 SIGMOIDOSCOPY SIGMOIDOSCOPY [facility] Start: 11-25-2016 End: 11-25-2016 Appointment Appointment [facility] Work Phone: Start: 11-25-2016 End: 11-25-2016 Streptococcus.beta-hemoly tic [Presence] in Throat by Organism specific culture *Culture, R/O Strep A Swab [facility] Work Phone: Start: 2011 Mammography MAMMOGRAM [facility] Start: 2011 Screening for malignant neoplasm of breast Mammogram Screening [facility] Start: 12-25-2001 HPV TESTING HPV TESTING [facility] Start: 12-25-1992 PAP TESTING PAP TESTING [facility] Start: 12-25-1992 Screening for malignant neoplasm of cervix Cervical Cancer Screening [facility] Start: 12-25-1990 Hepatitis B Vaccine (1 of 3 - 19+ 3-dose series) Hepatitis B Vaccine (1 of 3 - 19+ 3-dose series) [facility] Start: 12-25-1990 Urine microalbumin profile [facility] Start: 12-25-1989 Anxiety Screening Anxiety Screening [facility] Start: 12-25-1989 Depression Screening Depression Screening [facility] Start: 12-25-1989 HEPATITIS C SCREENING HEPATITIS C SCREENING [facility] Start: 12-25-1989 Hepatitis C screening Hepatitis C Screening [facility] Start: 12-25-1989 HIV SCREENING HIV SCREENING [facility] Start: 12-25-1989 HIV screening HIV Screening [facility] Start: 1983 Adult depression screening assessment DEPRESSION SCREENING [facility] Start: 1970 HEPATITIS B (1 of 3 - 3-dose series) HEPATITIS B (1 of 3 - 3-dose series) [facility] Patient Education [facility] in Work Phone: Patient referral [facility] Work Phone: Immunizations Immunization Date Immunization Notes Care Provider Josesito alvarado 02-14-2024 influenza, seasonal, injectable, preservative free No Primary Care Physician [facility] 01-23-2023 influenza, injectabl e, quadrivalent, preservative free Dr. Dave Cortez Work Phone: [facility] 01-23-2023 influenza virus vaccine, unspecified formulation Linda Rea II, OD Work Phone: [facility] 03-02-2022 influenza, injectabl e, quadrivalent, preservative free Dr. Dave Cortez Work Phone: [facility] 03-02-2022 influenza, seasonal, injectable Dr. Dave Cortez Work Phone: [facility] 02-09-2021 influenza, injectabl e, quadrivalent, preservative free Dr. Dave Cortez Work Phone: [facility] 02-09-2021 influenza, seasonal, injectable Dr. Dave Cortez Work Phone: [facility] 05-18-2020 Covid (Moderna) Dr. Acosta To [facility] Work Phone: [facility] 04-20-2020 Lexxid (Moderna) [facility] Work Phone: [facility] 02-20-2020 influenza, injectabl e, quadrivalent, preservative free Dr. Dave Cortez Work Phone: [facility] 02-20-2020 influenza, seasonal, injectable Dr. Dave Cortez Work Phone: [facility] 01-30-2019 influenza, injectabl e, quadrivalent, preservative free Dr. Dave Cortez Work Phone: [facility] 01-30-2019 influenza, seasonal, injectable Dr. Dave Cortez Work Phone: [facility] 02-14-2018 influenza, injectabl e, quadrivalent, preservative free Dr. Dave Cortez Work Phone: [facility] 02-14-2018 influenza, seasonal, injectable Dr. Dave Cortez Work Phone: [facility] 02-22-2017 influenza, injectabl e, quadrivalent, preservative free Dr. Dave Cortez Work Phone: [facility] 02-22-2017 influenza, seasonal, injectable Dr. Dave Cortez Work Phone: [facility] 01-15-2016 influenza, injectabl e, quadrivalent, preservative free Dr. Dave Cortez Work Phone: [facility] 01-15-2016 influenza, seasonal, injectable Dr. Dave Cortez Work Phone: [facility] 03-02-2015 influenza, injectabl e, quadrivalent, preservative free Dr. Dave Cortez Work Phone: [facility] 03-02-2015 influenza, seasonal, injectable Dr. Dave Cortez Work Phone: [facility] 01-01-2014 influenza, injectabl e, quadrivalent, preservative free Dr. Dave Cortez Work Phone: [facility] 01-01-2014 influenza, seasonal, injectable Dr. Dave Cortez Work Phone: [facility] 04-25-[address] Dave Cortez Work Phone: [facility] Payers Date Payer Category Payer Self-pay [id number] 2023 Self-pay [id number] 2022 Unknown [id number] 2016 Unknown [facility] DO NOT USE 22* * [id number] 2015 Unknown [facility] VISION [id number] 2015-Present [address] [place] [address] Indemnity [id number] Unknown [id number] Unknown [id number] Unknown [id number] Unknown [id number] Unknown [id number] Unknown [id number] Unknown [id number] Unknown [id number] Unknown [id number] Social History Date Type Detail Facility Start: 09-18-2014 End: 12-19-2024 Tobacco smoking status KSIS Never smoked tobacco [facility] Start: 09-18-2014 Tobacco use and exposure Smokeless tobacco non-user [facility] Start: 12-02-2021 End: 12-15-2022 Alcohol intake Ex-drinker (finding) [facility] Start: 09-18-2014 History SDOH Alcohol Comment rarely [facility] Start: 1970 Sex Assigned At Not on file C [facility] Start: 11-22-2021 End: 12-02-2021 Exposure to SARS-CoV-2 (event) Not sure [facility] Start: 06-21-2022 End: 07-04-2023 Tobacco smoking status NHIS Unknown if ever smoked [facility] Start: 08-25-2018 None [facility] Start: 08-25-2018 Spouse/ Signif icant Other;With Family [facility] Start: 1970 Sex Assigned At Female W [facility] Start: 12-15-2022 History of Social function [facility] Start: 12-15-2022 Tobacco use panel [facility] National Score (1-100), lower number is lower risk 79 [facility] Start: 07-17-2024 Sex Female (finding) [facility] Goals Date Patient Goal Desired Activity /State Clinical Notes 12-02-2021 to 12-19-2024 Patient InstructionsCoLinda hodge II, OD - 12/20/2023 5:36 PM EDT Note Date & Type Note Facility 12-19-2024 Progress note [facility] 07-15-2024 Radiology Diagnostic study note [facility] Imaging Services [address] [place] [address] Cardiac Only MR#: [id number] Acct: [id number] Name: BERNARDA HENDRICKS Rep #: [id number] : 1970 F 53 From: Ronald Vasques MD PCP: JUSTYNA Romano Status: REG CLI Study:Limited Chest CT Cardiac Only Date of E xam: 07/12/24 Exam# [id number] Ordering Dr: Sa barry Desir SORORITY MOTHER-Haroon PROCEDURE: LIMITED CHEST CT CARDIAC ONLY REASON FOR EXAM: SCREENING FOR HEART DISEASE TECHNIQUE: Supine chest CT without contrast, One or more dose reduction techniques were used (e.g., Automated exposure control, adjustment of the mA and/or kV according to patient size, use of iterative reconstruction technique). COMPARISON: None FINDINGS: Hardware: None Lymph nodes: No mediastinal hilar or axillary lymphadenopathy. Heart and Vasculature: Normal heart size. No pericardial effusion. Coronary Artery Calcifications: Absent Lungs and Airways: The lungs are normally expanded and clear. No septal thickening nodules or abnormal pulmonary opacities. Pleura: Unremarkable Upper Abdomen: Unremarkable Bones: Degenerative changes of the thoracic spine. CT/Limited Chest CT Cardiac Only IMPRESSION: No significant coronary artery calcification is seen. Reading Location: [facility] CC: JUSTYNA Desir ~ Grinder Operator Tool: Signed [facility] 07-15-2024 Radiology Diagnostic study note [facility] [address] [place] [address] 07/15/24 0739 MR#: [id number] Acct: [id number] Name: BERNARDA HENDRICKS Rep #:[id number] : 1970 53 From: Aydin Salazar MD PCP: JUSTYNA Romano Status:REG CLI Y Location: CT Calcium Scoring Date of Study:: 07/12/24 Indications Indications: Screening Coronary Calcium Scoring: High-resolution Computed Tomographic imaging of the chest was performed on [07/12/24 ], with particular attention paid to the coronary arteries. Images fromthe examination were analyzed for the presence and extent of coronary artery calcification , using coronary calcium quantification software. The patient tolerated the procedure well and there were no complications. The results of thecoronary calcification analysis are provided below. Findings Coronary Artery Left Main (LM): 0 Left Anterior Descending (LAD): 0 Left Circumflex (LCX): 0 Right Coronary Artery (RCA): 0 Total Agatston Score: 0 Percentile Rankin% Calcium Scoring Interpretation: Different methods to categorize the overall amount of coronary plaque. Overall amount CAC SIS Visual of coronary plaque P1 Mild -100 <2 1-2 vessels with mild amount of plaque P2 Moderate 101-300 3-4 1-2 vessels with moderate amount, 3 vessels with mild amount of plaque P3 Severe 301-999 5-7 3 vessels with moderate amount, 1 vessel withsevere amount of plaque P4 Extensive >1000 >8 2-3 vessels with severe amount of plaque Conclusion: No significant atherosclerotic plaquing noted. 07/15/24 0741 Date _ Aydin Salazar MD Cosigner Signature (if applicable): Date _ CC: JUSTYNA Desir; Dr. Aydin Salazar MD ~ Signed [facility] Work Phone: 12-20-2023 Instructions Linda Rea II, OD - 12/20/2023 5:37 PM EDT Assessment and Plan H52.13 Myopia, bilateral (primary encounter diagnosis) H52.223 Regular astigmatism of both eyes H52.4 Presbyopia Comment: Ocular health maintained with contact lens use. Good fit. Gao stable. Bridge Expert discontinuing current CL. Will order in Infuse toric trials. Recheck in one year. H35.363 Degenerative retinal drusen of both eyes Comment: Stable appearance. Monitor. I have confirmed and edited as necessary the relevant HPI, ophthalmic history, ROS, and the neuro exam findings as obtained by others. I have seen and examined Bernarda Hendricks. I have discussed the case and the management of this patient's care with the Resident/Fellow, if applicable. I also have reviewed and agree with the assessment and plan as stated above and agree with all of its relevant components. documented in this encounter [facility] 12-20-2023 Note HNO ID: [id number] Author: LINDA REA II, OD Service: ? Author Type: WELDING LEAD BURNER Type: Progress Notes Filed: 12/20/2023 17:38 Note Text: Assessment and Plan H52.13 Myopia, bilateral (primary encounter diagnosis) H52.223 Regular astigmatism of both eyes H52.4 Presbyopia Comment: Ocular health maintained with contact lens use. Good fit. Gao stable. Bridge Expert discontinuing current CL. Will order in Infuse toric trials. Recheck in one year. H35.363 Degenerative retinal drusen of both eyes Comment: Stable appearance. Monitor. I have confirmed and edited as necessary the relevant HPI, ophthalmic history, ROS, and the neuro exam findings as obtained by others. I have seen and examined Bernarda Hendricks. I have discussed the case and the management of this patient's care with the Resident/Fellow, if applicable. I also have reviewed and agree with the assessment and plan as stated above and agree with all of its relevant components. [facility] 12-20-2023 History of Present illness Narrative Assessment and Plan H52.13 Myopia, bilateral (primary encounter diagnosis) H52.223 Regular astigmatism of both eyes H52.4 Presbyopia Comment: Ocular health maintained with contact lens use. Good fit. Gao stable. Bridge Expert discontinuing current CL. Will order in Infuse toric trials. Recheck in one year. H35.363 Degenerative retinal drusen of both eyes Comment: Stable appearance. Monitor. I have confirmed and edited as necessary the relevant HPI, ophthalmic history, ROS, and the neuro exam findings as obtained by others. I have seen and examined Bernarda Hendricks. I have discussed the case and the management of this patient's care with the Resident/Fellow, if applicable. I also have reviewed and agree with the assessment and plan as stated above and agree with all of its relevant components. documented in this encounter [facility] 07-04-2023 Discharge summary Note Date/Time July 04, 2023 8:12pm [facility] Medical Records Department [address] [place] [address] Emergency Department Summary 07/04/23 MR#: [id number] Acct: [id number] Name: ELADIOBERNARDA GUAMAN Rep #:[id number] : 1970 52 From: Kermit Barfield MD PCP: Dr. Kristen Vigil, DO Status:R EG ER Location: ED HPI HPI - GI History of Present Illness Chief Complaint: Abd Pain Detail of Chief Complaint: Periumbilical pain that migrated to the right inguinal/adnexal area Informant: patient Abdominal Pain/Flank Pain Onset: Today Context: Gradual Onset (Then became suddenly worse) Timing: Waxes and wanes Quality: Aching Location: - (Periumbilical that migrated to the right inguinal area) Current Severity: 04/26 Maximum Severity: 01/24 Worsened by: Car ride and Movement Relieved by: Nothing Nausea/Vomiting/Emesis GI Symptom: Positive for Nausea; Negative for Vomiting Diarrhea/Melena/Hematochezia GI Symptom: Negative for Diarrhea, Melena or Hematochezia Associated Symptoms Associated Symptoms: Negative for Dysuria, Frequency, Hematuria or Urgency Narrative Narrative: Patient is a 52-year-old woman with history of diverticulitis, who presents withperiumbilical pain that started earlier today. The pain migrated to the right inguinal area. She did complain nausea without vomiting or diarrhea. She denies anorexia. She states she has had problems with constipation. She sat belinda bathtub to see if this would help relax her. The pain became suddenly worse. states she was very weak and in obvious discomfort. He had to help her get ready to come to the hospital. She denies fever or chills. She denies respiratory symptoms. She denies urologic symptoms. She has no history of endometriosis or ovarian cyst. She has no history of renal or ureterolithiasis. Prior similar symptoms: Yes (Obstipation.) Recent Illness/Hospitalization: No [facility] Medical History Acute diverticulitis of intestine Contact with or exposure to other viral diseases RSV (respiratory syncytial virus infection) Segmental and somatic dysfunction of lumbar region Segmental and somatic dysfunction of pelvic region Segmental and somatic dysfunction of thoracic region Home Medications melatonin 5 mg capsule mg PO 11/05/20 [History Last Taken Unknown] magnesium 250 mg tablet 250 mg PO DAILY 06/21/22 [History Last Taken Unknown] vitamin B complex (B Complex-Vitamin B12 tablet) 1 tab PO DAILY 06/21/22 [History Last Taken Unknown] zinc gluconate 30 mg tablet 30 mg PO DAILY 06/21/22 [History Last Taken Unknown] amoxicillin 875 mg-potassium clavulanate 125 mg tablet 1 tab PO BID #20 tabs 04/04/23 [Rx Last Taken Unknown] prednisone 20 mg tablet 20 mg PO DAILY #5 tabs 04/04/23 [Rx Last Taken Unknown] Allergy/AdvReac Type Severity Reaction Status Date / Time Penicillins Allergy Mild rash Verified 07/04/23 16:58 Sulfa (Sulfonamide Allergy Mild rash Verified 07/04/23 16:58 Antibiotics) Surgical History History of dilatation and curettage History of tonsillectomy and adenoidectomy Social History Smoking Status: Never smoker alcohol intake: never substance use type: does not use caffeine: Yes what type of physical activity do you participate in: other details: crossfit frequency: 3-4 times per week seatbelt use: always do you feel safe at home: Yes additional social history: [place]- Patient works in radiology [facility] ROS ROS ED Constitutional Constitutional ED: Denies chills, fever(s), subjective, sweats or weight loss ENT ENT ED: Denies ear pain, rhinorrhea or sore throat Cardiovascular Cardiovascular: Denies chest pain, orthopnea, palpitations, paroxysmal nocturnaldyspnea or racing heartbeat Respiratory/Chest Respiratory/Chest: Denies cough, dyspnea, dyspnea on exertion, orthopnea or paroxysmal nocturnal dyspnea Gastrointestinal Gastrointestinal: Reports abdominal pain and nausea; Denies constipation, diarrhea, melena or vomiting Genitourinary Genitourinary ED: Denies dysuria, hematuria or urinary frequency Musculoskeletal Musculoskeletal: Denies arthralgias, back pain, myalgias or neck pain Integumentary Denies rash Neurologic Neurologic: Denies headache(s), paresthesias or weakness Psychiatric Psychiatric: Denies anxiety or depression Hematologic/Lymphatic Hematologic/Lymphatic: Denies easy bleeding or easy bruising EXAM Physical Exam Const Vital Signs: 07/04/23 16:56 07/04/23 18:45 Temperature 97.2 F L Temperature Source Temporal Pulse Rate 87 72 Respiratory Rate 17 18 Blood Pressure 141/67 H 116/73 Blood Pressure Mean 91 87 Pulse Ox 100 99 Oxygen Delivery Method Room Air Positive well nourished and well developed General Appearance ED: well developed and NAD; Negative for pallor HEENT Reports TM's clear and moist mucous membranes normocephalic and atraumatic Tympanic Membrane ED: Yes TM's clear Eyes PERRL and EOMs intact bilaterally General Eye ED: Negative for pale conjunctiva or scleral icterus Neck no lymphadenopathy, supple and no JVD Resp normal respiratory effort and clear to auscultation bilaterally Cardio regular rate, regular rhythm, S1 normal heart sound, S2 normal heart sound and no murmurs GI no masses; Negative for non-tender or non-distended GI Narrative: There is tympany throughout. Inspection: abdominal distention Auscultation: hypoactive bowel sounds Palpation: soft and tender other (Near the right inguinal area. There is no lymphadenopathy or mass appreciated.); Negative for guarding, rigid, hepatomegaly, splenomegaly, hernia or mass Back/Spine no CVA tenderness Neuro CN's II-XII intact bilaterally and moves all extremities Sensorium / Orientation: alert Psych mental status grossly normal and thought process normal Skin no wounds General Skin Exam: Negative for jaundice or pallor Lesions: no lesions Rashes: no rashes MDM MDM MDM Narrative Medical decision making narrative: Differential diagnosis would include ureterolithiasis, atypical presentation of appendicitis, ruptured ovarian cyst last normal menstrual period 2 weeks ago. She still is menstruating. She has no signs or symptoms of . Will obtain CBC, BMP and UA. Prior records were reviewed. She does have history of diverticulitis several years ago. History & Record Review Additional record(s) reviewed:: Prior inpatient record, Prior outpatient record and Prior labs Lab Data Attestation: I reviewed the patient's lab results. Lab results narrative: CBC is normal. There is no shift. Electrolyte panel is normal. Urine is negative. Labs: Laboratory Results - last 24 hr 07/04/23 18:30 WBC 7.0 RBC 4.91 Hgb 14.4 Hct 42.7 MCV 87.0 MCH 29.3 MCHC 33.7 RDW Std Deviation 39.2 RDW Coeff of Timoteo 12.3 Plt Count 263 MPV 9.4 Immature Gran % (Auto) 0.400 Neut % (Auto) 58.6 Lymph % (Auto) 30.6 Waller % (Auto) 8.8 Eos % (Auto) 1.0 Baso % (Auto) 0.6 Absolute Neuts (auto) 4.1 Absolute Lymphs (auto) 2.13 Nucleated RBC % 0 Sodium 140 Potassium 3.6 Chloride 106 Carbon Dioxide 26.0 Anion Gap 8 BUN 17 Creatinine 0.86 Estim Creat Clear Calc 61.21 Est GFR (MDRD) Af Amer 90 Est GFR (MDRD) Non-Af 74 BUN/Creatinine Ratio 19.8 Glucose 101 Calcium 9.2 Urine Color Yellow Urine Clarity Clear Urine pH 7.0 Ur Specific [place] 1.010 Urine Protein Negative Urine Glucose (UA) Normal Urine Ketones Negative Urine Occult Blood Negative Urine Nitrite Negative Urine Bilirubin Negative Urine Urobilinogen Normal Ur Leukocyte Esterase Negative Urine RBC 0 SEEN Urine WBC 0 SEEN Ur Squamous Epith Cells 0 SEEN Urine Bacteria 0 SEEN Urine Mucus 0 SEEN Treatment and Re-Evaluation :: When patient was reassessed at 195 her pain had resolved. Suspect this was dueto a ruptured ovarian cyst. This also may represent irritable bowel/obstipation. Discharge Plan Triage Chief Complaint: Abd Pain ED Provider: Kermit Barfield Dx/Rx/DC Orders Clinical Impression: Right-sided abdominal pain of unknown cause, History of diverticulitis Instructions: ED Abdominal Pain Unkn Cause Fem, ED Ovarian Cyst Prescriptions: No Action melatonin 5 mg capsule PO zinc gluconate 30 mg tablet 30 mg PO DAILY vitamin B complex [B Complex-Vitamin B12] Tablet 1 tab PO DAILY magnesium 250 mg tablet 250 mg PO DAILY amoxicillin-pot clavulanate 875-125 mg tablet 1 tab PO BID Qty: 20 0RF prednisone 20 mg tablet 20 mg PO DAILY Qty: 5 0RF Primary Care Provider: Kristen Vigil Referrals: Kristen Vigil DO [Primary Care Provider] - As Needed Disposition Disposition: Home, Self Care What to do if you have Problems For any increased pain, shortness of breath, bleeding, nausea or vomiting, chestpain, or any unexpected problems, contact your Primary Care Provider. Call [facility] ([phone]) or report to the closest Emergency Room. Call 911 if necessary. 07/04/232011 <Electronically signed by Kermit Barfield MD> Cosigner Signature (if applicable): CC: Dr. Kristen Vigil DO ~ Signed [facility] Work Phone: [phone] 870-113308-31-2023 Instructions* Patient Instructions* Lidna Rea II, OD - 12/15/2022 9:21 AM EDT Assessment and Plan H52.13 Myopia, bilateral (primary encounter diagnosis) H52.223 Regular astigmatism of both eyes H52.4 Presbyopia Comment: Ocular health maintained with contact lens use. Good fit. Gao to be adjusted. Recheck in one year. H35.363 Degenerative retinal drusen of both eyes Comment: Trace R>L. Monitor. Discussed AREDS 2 vitamins. I have confirmed and edited as necessary the relevant ophthalmic history, ROS, and the neuro exam findings as obtained by others. I have seen and examined Bernarda Hendricks. I have discussed the case and the management of this patient's care with the Resident/Fellow, if applicable. I also have reviewed and agree with the assessment and plan as stated above and agree withall of its relevant components. Linda Rea II, OD [facility] [place] History of Present illness Narrative* Linda Rea II, OD - 12/15/2022 9:19 AM EDT Assessment and Plan H52.13 Myopia, bilateral (primary encounter diagnosis) H52.223 Regular astigmatism of both eyes H52.4 Presbyopia Comment: Ocular health maintained with contact lens use. Good fit. Gao to be adjusted. Recheck in one year. H35.363 Degenerative retinal drusen of both eyes Comment: Trace R>L. Monitor. Discussed AREDS 2 vitamins. I have confirmed and edited as necessary the relevant ophthalmic history, ROS, and the neuro exam findings as obtained by others. I have seen and examined Bernarda Hendricks. I have discussed the case and the management of this patient's care with the Resident/Fellow, if applicable. I also have reviewed and agree with the assessment and plan as stated above and agree withall of its relevant components. Linda Rea II, OD documented [facility] [place] Instructions* Patient Instructions* Linda Rea II, OD - 12/02/2021 9:22 AM EDT Assessment and Plan H52.13 Myopia, bilateral (primary encounter diagnosis) H52.223 Regular astigmatism of both eyes H52.4 Presbyopia Comment: Ocular health maintained with contact lens use. Good fit. Gao stable. To try Dailies Total 1 for better end of day comfort. Recheck in one year. I have confirmed and edited as necessary the relevant ophthalmic history, ROS, and the neuro exam findings as obtained by others. I have seen and examined Bernarda Hendricks. I have discussed the case and the management of this patient's care with the Resident/Fellow, if applicable. I also have reviewed and agree with the assessment and plan as stated above and agree withall of its relevant components. Linda Rea II, OD documented in [facility] encounter[facility] [place] History of Present illness Narrative* Linda Rea II, OD - 12/02/2021 9:21 AM EDT Assessment and Plan H52.13 Myopia, bilateral (primary encounter diagnosis) H52.223 Regular astigmatism of both eyes H52.4 Presbyopia Comment: Ocular health maintained with contact lens use. Good fit. Gao stable. To try Dailies Total 1 for better end of day comfort. Recheck in one year. I have confirmed and edited as necessary the relevant ophthalmic history, ROS, and the neuro exam findings as obtained by others. I have seen and examined Bernarda Hendricks. I have discussed the case and the management of this patient's care with the Resident/Fellow, if applicable. I also have reviewed and agree with the assessment and plan as stated above and agree withall of its relevant components. Linda Rea II, OD documented in this encounter[facility] [place]* Diagnosis Myopia, bilateral- Primary Myopia Regular astigmatism of both eyes Regular astigmatism Presbyopia documented in this encounter [facility] [place] [facility]* Diagnosis Onset Date Resolution Status Back pain acute Segmental and somatic dysfunction of thoracic region acute [facility] Work Phone: Evaluation note* Diagnosis Myopia, bilateral- Primary Myopia Regular astigmatism of both eyes Regular astigmatism Presbyopia Degenerative retinal drusen of both eyes Drusen (degenerative) of retina documented in this encounter [facility]* Diagnosis Onset Date Resolution Status Back pain acute Segmental and somatic dysfunction of thoracic region acute History of back surgery none active Encounter for routine gynecological examination noneactive [facility] Work Phone: Evaluation noteNo assessment information available [facility] Work Phone: Evaluation note* Diagnosis Myopia, bilateral- Primary Myopia Regular astigmatism of both eyes Regular astigmatism Presbyopia Degenerative retinal drusen of both eyes Drusen (degenerative) of retina documented in this encounter [facility] [place]* Diagnosis Onset Date Resolution Status Admit Date Climacteric acute December 8:47am PMDD (premenstrual dysphoric disorder) acute December 19, 025 8:47am [facility] Work Phone: Progress note Author Minerva Bird [facility] Note Date/Time December 19, 2024 9:41am [facility] [address], [address] [place] [address] OFFICE VISIT Date of Service: 12/19/24 MR#: [id number] Acct: [id number] Name: BERNARDA HENDRICKS Rep #: [id number] : 1970 Provider: Dr. Figueroa Bird MD Age/Sex: 53/F Location: [facility] Status: Signed Intake Vital Signs 12/15/23 10:41 12/19/24 08:59 Height 5 ft 2 in 5 ft 2 in Weight: 139 lb 9 oz BMI 25.5 BP 138/77 H Intake Visit Reasons: Kari-Menopause Clinical Account Manager Required: No Is patient in pain?: Yes (menstrual cramps) Allergies Penicillins Allergy (Mild, Verified 12/19/24 09:00) rash Sulfa (Sulfonamide Antibiotics) Allergy (Mild, Verified 12/19/24 09:00) rash Medications ?Medication ?Instructions ?Recorded ?Confirmed ?Type magnesium 250 mg tablet 250 mg PO DAILY 06/21/2208/09 History lactobacillus combination no.9 4 4,000 mmu cells PO DA HEVER 12/15/23 12/19/24 History billion cell capsule (Adult 50 Plus Probiotic) Hormone [place] PO 12/19/24 12/19/24 History bupropion HCl 150 mg 24 hr tablet, 150 mg PO QAM #30 t abs 12/19/24 12/19/24 Rx extended release (Wellbutrin XL) Is last menstrual period known: Yes Last Menstrual Period: 12/18/24 Post menopausal: No Patient : No : No [facility] Medical History RSV (respiratory syncytial virus infection) Contact with or exposure to other viral diseases Acute diverticulitis of intestine Segmental and somatic dysfunction of pelvic region Segmental and somatic dysfunction of thoracic region Segmental and somatic dysfunction of lumbar region Surgical History History of dilatation and curettage History of tonsillectomy and adenoidectomy Social History (Updated 12/19/24 @ 09:02 by Rehana Zuleta) number of children: 2 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 The patient reports experiencing perimenopausal symptoms such as hot flashes andnight sweats, particularly the week before her menstrual cycle begins. She continues to have regular periods, although she notes some menstrual irregularities, including changes in flow and timing. She describes a significant decrease in energy levels, which she associates withher weight gain of approximately 7 to 8 pounds over the past two years, primarily distributed around her midsection. Despite maintaining a routine of CrossFit three times a week for the past ten years, she now finds herself lacking the motivation and energy to continue. The patient also reports experiencing dizziness, which occurs sporadically and is not accompanied by chest pain or shortness of breath. She has a history of low libido, which she describes as stable and not worsening. Joint pain, particularly in the hips, has become more noticeable, which she attributes to perimenopausal changes. She has experienced urinary tract infections in the past and has tried using an estrogen cream, which she discontinued due to irritation. Attestation: Documentation on this patient encounter was supported using ambient scribe technology/ voice AI technology. The patient consented to recording for the purpose of documenting the encounter. Provider reviewed content of the generatednote prior to signature. Female Reproductive History Last Menstrual Period: 12/18/24 History 3 Elective abortions Hx Para 2 Spontaneous abortions 1 Hx # Term Pregnancies Ectopic pregnancies Hx # Pregnancies Multiple births # of living children Past Pregnancies Del. Date Name GA/Weeks Outcome Route Bth Weight Infant Gen Labor Lgth Anesthesia Del Locatn Provider FOB Unknown Angus 1993 Unknown 1995 Ifeanyi live - full term ROS ROS Narrative - General: Reports low energy levels and weight gain. - Cardiovascular: Denies chest pain or shortness of breath. - Neurological: Reports dizziness, denies headaches. - Musculoskeletal: Reports joint pain in hips. - Genitourinary: Reports history of urinary tract infections, denies current symptoms. - Reproductive: Reports perimenopausal symptoms, including hot flashes and nightsweats, and low libido. Exam Const General: cooperative, healthy appearing, comfortable, no acute distress and welldeveloped Orientation: alert HENMT Head: normal to inspection and normocephalic Ears: hearing grossly normal bilaterally and external ears normal Nose: external nose normal and nares normal Face and sinus: normal facial exam Neck Neck: normal visual inspection, no lymphadenopathy and trachea midline Thyroid: thyroid normal Resp Effort & Inspection: normal respiratory effort Musc Other: gross motor intact no deficits, full bilateral strength Skin General: no rashes or lesions noted Neuro Motor: muscle tone normal throughout Coding Level of Care Code Off vis,est,level 4 Diagnoses Climacteric N95.1 PMDD (premenstrual dysphoric disorder) F32.81 Assessment and Plan Assessment and Plan (1) Climacteric: Status: Acute Comment: still having menses, discussed continuous OCP or wellbutrin. main complaints are ewight gain, decreased motivation, and some night sweats the week before menses. (2) PMDD (premenstrual dysphoric disorder): Status: Acute Comment: prometrium in the past. discussed continuous ocps. Medications: New bupropion HCl XL (Wellbutrin XL) 150 mg PO QAM 30 tabs 12RF Plan Assessment and Plan 53-year-old female with a history of perimenopausal symptoms presenting with lowenergy levels and weight gain. The patient exhibits classic perimenopausal symptoms, including hot flashes and night sweats, which are more pronounced the week before menstruation. Her menstrual cycle remains regular, though she notes some irregularities in flow and timing, indicative of hormonal fluctuations. The patient reports a decrease in energy levels, which she correlates with a weight gain of 7 to 8 pounds over the past two years, primarily around the midsection. Despite a consistent exercise routine, she experiences a lack of motivation and energy, suggesting a possible hormonal influence. Dizziness is reported sporadically, without accompanying chest pain or shortnessof breath, warranting further evaluation to rule out cardiovascular or other systemic causes. Low libido is noted, though stable, and joint pain in the hips is attributed to perimenopausal changes. The patient has a history of urinary tract infections and has previously used estrogen cream, which was discontinued due to irritation. 1. Perimenopausal Symptoms The patient is experiencing perimenopausal symptoms, including hot flashes and night sweats, particularly before menstruation. A trial of Wellbutrin is recommended to address low energy levels and weight management, with a follow-upin 4 to 6 weeks to assess efficacy. 2. Menstrual Irregularities The patient reports menstrual irregularities, including changes in flow and timing, which are consistent with hormonal fluctuations during perimenopause. Continuous oral contraceptive pills may be considered if Wellbutrin does not improve symptoms. 3. Low Energy Levels The patient reports low energy levels, which are impacting her motivation to exercise. Wellbutrin is suggested as a non-hormonal option to potentially improve energy and motivation. 4. Weight Gain The patient has experienced a weight gain of 7 to 8 pounds over the past two years, primarily around the midsection. Wellbutrin may assist in weight management by potentially reducing appetite and increasing motivation for physical activity. 5. Dizziness The patient experiences sporadic dizziness without chest pain or shortness of breath. Further evaluation is recommended to rule out cardiovascular or other systemic causes. 6. Low Libido The patient reports low libido, which is stable and not worsening. Wellbutrin may be considered to potentially improve libido, although its efficacy in this regard is uncertain. 7. Joint Pain The patient reports joint pain in the hips, which may be related to perimenopausal changes. Management may include lifestyle modifications and monitoring symptoms. 8. Urinary Tract Infections The patient has a history of urinary tract infections and previously used estrogen cream, which was discontinued due to irritation. Alternative options such as vitamin E oil for vaginal dryness may be considered. 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 Reason for Visit Back pain Segmental and somatic dysfunction of thoracic region History of back surgery Encounter for routine gynecological examination Chief Complaint CONCERN FOR SINUS IN FECTION COVID TEST/[employer] EMPLOYEE Abd Pain Chief Complaint Admit Date EMPLOYEE LABS June 10, 2024 6:14am SCREENING FOR HEART DISEASE July 12, 2024 8:59am SCREENING FOR HEART DISEASE July 15, 2024 7:39am Chief Complaint Admit Date EPICONDYLITIS RT ELBOW/RX HERE September 03, 2024 11:30am Medial epicondylitis, right elbow September 042024 6:36am Medial epicondylitis, right elbow September 042024 11:24am Kari-Menopause December 19, 2024 8:47am Reason for Visit Admit Date Climacteric December 19, 2024 8:47am PMDD (premenstrual dysphoric disorder) S eptember 2024 8:47am Advance Directives No Advanced Directives Records Found Advance Directive Response Recorded Date/ Time Living Will Yes June 21, 2022 8:38am Power of National Park Ranger No June 21 8:38am Advance Directive Response Recorded Date/ Time Living Will No July 04, 2023 6:20pm Power of National Park Ranger No July 03 6:20pm Medications Administered Section Active Administered Medications - up to 3 most recent administrations Medication Order MAR Action Action Date Dose Rate Site tropicamide 0.5 % 1 Drop (MYDRIACYL) 1 Drop, BOTH EYES, DIRECTED, Starting on Pam 12/15/22 at 0930, Until Pam 12/15/22 at 2129, Administer for dilation Given 12/15/2022 9:30 AM EDT 1 Drop Summary Purpose Family History No Family History Records FoundNo Family History Records Found Additional Source Comments Source Comments (unrecognize d section and content) In the event this informatio n is protected by the Federal Confidentiality of Alcohol and Drug Abuse Patient Records regulations: The Federal rules restrict any use of the information to criminally investigate or prosecute any alcohol or drug abuse patient.[facility] the event this information is protected by the Federal Confidentiality of Alcohol and Drug Abuse Patient Records regulations: The Federal rules restrict any use of the information to criminally investigate or prosecute any alcohol or drug abuse patient.[facility] the event this information is protected by the Federal Confidentiality of Alcohol and Drug Abuse Patient Records regulations: The Federal rules restrict any use of the information to criminally investigate or prosecute any alcohol or drug abuse patient.[facility] Reason for Visit (unrecogniz ed section and content) Reason Comments Yearly Exam Contact lens evaluation Care Teams (unrecognized sec tion and content) Under Cutter Relationship Specialty Start Date End Date Dave Cortez PCP - General Family Practice 07/11/11 Team Status: Active Member Role Status Dates Dr. Dave Cortez MD Family Provider Active Dr. Dave Cortez MD Primary Care Provider Active Team Status: Inactive Member Role Status Dates Dr. Dave Cortez MD Primary Care Provider, Referrin g Provider Active Dr. Beth Oliva DC Attending Provider Active Team Status: Inactive Member Role Status Dates Dr. Dave Cortez MD Primary Care Provider, Attendin g Provider Active Under Cutter Relationship Specialty Start Date End Date Dave Cortez PCP - General Family Medicine 07/11/11 Team Status: Inactive Member Role Status Dates Dr. Dave Cortez MD Primary Care Provider, Referrin g Provider Active Dr. Minerva Bird MD Attending Provider Active Team Status: Inactive Member Role Status Dates Dr. Dave Cortez MD Primary Care Provider Active Dr. Minerva Bird MD Attending Provider, Referr ing Provider Active Team Status: Active Member Role Status Dates Dr. Dave Cortez MD Family Provider Active Dr. Kristen Vigil DO Primary Care Provider Active Team Status: Inactive Member Role Status Dates Dr. Dave Cortez MD Primary Care Provider, Referrin g Provider Active Albert Salazar PA, PA Attending Provider Active Team Status: Inactive Member Role Status Dates Dr. Kristen Vigil DO Primary Care Provider Active Dr. Kermit Barfield MD Emergency Provider Active Under Cutter Relationship Specialty Start Date End Date Kristen Vigil DO [address] [facility] [place] [address] PCP - General Internal Medicine 12/20/23 Team Status: Active Member Role Status Dates Belem Desir SORORITY MOTHER-C Primary Care Provider Acti ve Team Status: Active Member Role Status Dates No Primary Care Physician Primary Care Provider Active Start: June 10, 2024 Health Risk Assessment Attending Provider Active Start: June 10, 2024 Health Risk Assessment Referring Provider Active Start: June 10, 2024 Team Status: Inactive Member Role Status Dates Belem Shanthi Desir SORORITY MOTHER-C Primary Care Provider Acti ve Start: July 12, 2024 End: July 12, 2024 Belem Shanthi Desir NP-C Attending Provider Active Start: July 12, 2024 End: July 12, 2024 Belem Shanthi Desir SORORITY MOTHER-C Referring Provider Active Start: July 12, 2024 End: July 12, 2024 Team Status: Active Member Role Status Dates Belem Garciachantal Desir [employer] Primary Care Provider Acti ve Start: July 15, 2024 Belem Shanthi Desir [employer] Referring Provider Active Start: July 15, 2024 Belem Desir [employer] Other Provider Active Start: July 15, 2024 Dr. Aydin Salazar MD Attending Provider Active S tart: July 15, 2024 Team Status: Active Member Role/Relationship Status Dates Belem Desir [employer] Primary Care Provider Acti ve Team Status: Active Member Role/Relationship Status Dates Belem Shanthi Desir [employer] Primary Care Provider Acti ve Start: September 03, 2024 Dr. Vincent Pimentel DO Attending Provider Active Start: September 03, 2024 Dr. Vincent Pimentel DO Referring Provider Active Start: September 03, 2024 Team Status: Inactive Member Role/Relationship Status Dates Belem Desir [employer] Primary Care Provider Acti ve Start: September 04, 2024 End: September 04, 2024 Dr. Vincent Pimentel DO Attending Provider Active Start: September 04, 2024 End: September 04, 2024 Dr. Vincent Pimentel DO Referring Provider Active Start: September 04, 2024 End: September 04, 2024 Team Status: Active Member Role/Relationship Status Dates Belem Desir [employer] Primary Care Provider Acti ve Start: September 04, 2024 Dr. Vincent Pimentel DO Referring Provider Active Start: September 04, 2024 Dr. Vincent Pimentel DO Other Provider Active Start: September 04, 2024 Dr. Day Olsen MD Attending Provider Active S tart: September 04, 2024 Team Status: Inactive Member Role/Relationship Status Dates JUSTYNA Yee Primary Care Provider Acti ve Start: October 15, 2024 Dr. Darcy Ugarte MD Attending Provider Active Start: October 15, 2024 Team Status: Inactive Member Role/Relationship Status Dates JUSTYNA Yee Primary Care Provider Acti ve Start: December 19, 2024 End: December 19, 2024 JUSTYNA Yee Referring Provider Active Start: December 19, 2024 End: December 19, 2024 Dr. Minerva Bird MD Attending Provider Active Start: December 19, 2024 End: December 19, 2024 INFORMATION SOURCE (unrecogn ized section and content) DATE CREATED AUTHOR 12/22/2023 [facility] DATE CREATED AUTHOR 'S SRINATHIZ ATCRYSTAL 12/20/2024 [facility] FOR RECORDS PERTAINING TO PATIENTS WHO ARE OR HAVE BEEN ENROLLED IN A CHEMICAL DEPENDENCY/SUBSTANCEABUSE PROGRAM, SOME INFORMATION MAY BE OMITTED. This clinical summary was aggregated from multiple sources. Caution should be exercised in using it in the provision of clinical care. This summary normalizes information from multiple sources, and as a consequence, information in this document may materially change the coding, format and clinical context of patient data. In addition, data may be omitted in some cases. CLINICAL DECISIONS SHOULD BE BASED ON THE PRIMARY CLINICAL RECORDS. [employer] provides no warranty or guarantee of the accuracy or completeness of information in this document.
== END | disposition home or self-care (01) ==
LOC: OPBI 12:14
PROVIDERS: PCP Nurse Practitioner Family; Referring Provider Obstetrics & Gynecology; Visit Provider Obstetrics & Gynecology
DX: Z12.31 Encounter for screening mammogram for malignant neoplasm of breast (principal)
CPT/HCPCS: 77063; 77067

== ENCOUNTER → 2025-02-03 | Outpatient (CLI) | payer OTHER, SELFPAY ==
--- NOTE | 2025-02-03 15:02 | CT_ITS ---
PROCEDURE: CT SINUS/FACIAL BONE WITHOUT CONTRAST 02/03/2025 REASON FOR EXAM: CHRONIC SINUSITIS TECHNIQUE: Procedure Code: CTSI Modality: CT Procedure: SINUS/FACIAL BONE Coronal and Sagittal reconstruction series were provided. One or more dose reduction techniques were used (e.g., Automated exposure control, adjustment of the mA and/or kV according to patient size, use of iterative reconstruction technique). RADIATION DOSE SUMMARY: CTDlvol: 28.14 mGy DLP: 753.23 mGycm COMPARISON: None. FINDINGS: The paranasal sinuses are well-aerated. Minimal mucosal thickening in the [id number]-scssvxl-arxn-right frontoethmoidal recesses without obstruction. No fluid levels. Nasal septum is slightly deviated towards the right with spurring. No mastoid or middle ear effusions. No osseous erosion or destruction. Unremarkable orbits and superficial soft tissues. Visualized skull base and calvarium are intact and within normal limits. Partially included intracranial contents are unremarkable. CT/Sinus/Facial Bone IMPRESSION: No substantial paranasal sinus disease. Minimal mucosal thickening in the left -satslwx-aeex-whdwk frontoethmoidal recesses. Slight rightward nasal septum deviation. Reading Location: [id number]
--- NOTE | 2025-02-03 15:02 | CT_ITS ---
PROCEDURE: CT SINUS/FACIAL BONE WITHOUT CONTRAST 02/03/2025 REASON FOR EXAM: CHRONIC SINUSITIS TECHNIQUE: Procedure Code: CTSI Modality: CT Procedure: SINUS/FACIAL BONE Coronal and Sagittal reconstruction series were provided. One or more dose reduction techniques were used (e.g., Automated exposure control, adjustment of the mA and/or kV according to patient size, use of iterative reconstruction technique). RADIATION DOSE SUMMARY: CTDlvol: 28.14 mGy DLP: 753.23 mGycm COMPARISON: None. FINDINGS: The paranasal sinuses are well-aerated. Minimal mucosal thickening in the [id number]-xkdqknb-oabz-right frontoethmoidal recesses without obstruction. No fluid levels. Nasal septum is slightly deviated towards the right with spurring. No mastoid or middle ear effusions. No osseous erosion or destruction. Unremarkable orbits and superficial soft tissues. Visualized skull base and calvarium are intact and within normal limits. Partially included intracranial contents are unremarkable. CT/Sinus/Facial Bone IMPRESSION: No substantial paranasal sinus disease. Minimal mucosal thickening in the left -wscgbyo-mnkw-isnri frontoethmoidal recesses. Slight rightward nasal septum deviation. Reading Location: [id number]
== END | disposition home or self-care (01) ==
PROVIDERS: PCP Nurse Practitioner Family; Referring Provider Otolaryngology; Visit Provider Otolaryngology
DX: J32.8 Other chronic sinusitis (principal)
CPT/HCPCS: 70486